=== PATIENT | female | born 1990 | race Caucasian/White ===

== ENCOUNTER 2024-02-13 19:21 | Emergency (ER) | payer MEDICAID, SELFPAY ==
--- NOTE | ~2024-02-13 | CT_ITS ---
EXAMINATION: CT ABDOMEN AND PELVIS WITHOUT CONTRAST CLINICAL INFORMATION: Left lower abdominal pain COMPARISON: None available. TECHNIQUE: Multidetector volumetric imaging was performed from the superior aspect of the liver through the pubic symphysis. Sagittal and coronal reformatted images were obtained on the technologist's workstation. This CT examination was performed using dose optimization techniques as appropriate, variously including the following: *Automated exposure control *Adjustment of mA and/or kV according to patient size (this includes techniques or standardized protocols for targeted exams where dose is matched to indication/reason for exam; i.e. extremities or head) *Use of iterative reconstruction technique DLP: 604 mGy-cm FINDINGS: LUNG BASES: The visualized lung bases are unremarkable. LIVER, GALLBLADDER, AND BILIARY TREE: The liver is normal in size, shape, and attenuation. No focal hepatic lesion or biliary ductal dilatation is present. The gallbladder is unremarkable with no evidence of radiopaque gallstones, gallbladder wall thickening, or obvious pericholecystic inflammatory changes. PANCREAS: Unremarkable. SPLEEN: Unremarkable. ADRENAL GLANDS: Unremarkable. KIDNEYS AND URETERS: The kidneys are normal in size, shape, and attenuation. No hydronephrosis, hydroureter, or calculi seen. No perinephric stranding. BLADDER: Unremarkable. GASTROINTESTINAL TRACT: The small and large bowel are unremarkable. The appendix is unremarkable. ABDOMINAL WALL: No significant hernia is appreciated. Tiny periumbilical hernia seen containing only fat. LYMPH NODES: No retroperitoneal pathology. VASCULAR: Unremarkable. PELVIC VISCERA: Normal anteverted uterus is present. There is a 3.6 cm benign water density left ovarian cyst present which needs no follow-up. OSSEOUS STRUCTURES: Mild biconvex thoracolumbar scoliosis with degenerative changes spine. CT/CT abdomen pelvis wo IV con IMPRESSION: A cause for the patient's left lower quadrant pain has not been found. Fleischner guidelines were followed. Electronically signed by: Gustavo Leon MD 02/14/2024 01:37 AM EDT
[2024-02-13 19:35] VITALS: BP 121/89; PULSE 99; RESP 18; TEMP 36.9; O2SAT 97; BMI 35.8
--- NOTE | 2024-02-13 19:35 | ED_ITS ---
HPI - General Adult General Chief complaint: Abdominal Pain Stated complaint: L side lower abd pain, painful urination Time Seen by Provider: 02/13/24 23:13 Source: patient Mode of arrival: ambulatory Limitations: no limitations History of Present Illness ED Provider: Dr. Golden HPI narrative: Patient with months of left lower abdominal pain. She has had infertility work up in the past and has had left lower pain since having a salpingogram. She denies fever Onset (ago): month(s) Severity: mild Related Data Previous Rx's ?Medication ?Instructions ?Recorded naproxen 500 mg tablet (Naprosyn) 500 mg PO BID #20 tabs 02/14/24 Allergies Allergy/AdvReac Type Severity Reaction Status Date / Time No Known Allergies Allergy Verified 02/13/24 19:37 Review of Systems 2 Review of Systems: Yes all other systems are reviewed and are negative Neurologic: Denies Sensory deficit (Neuro) COUNT INCLUDES THE [facility] Social History Social History Advance Directives: No Advance Directives Information Provided: Yes Do you have a plan to hurt others: No Plan Physical Exam ED Vital Signs: Vital Signs - 24 hr 02/13/24 19:35 Temperature 98.5 F Pulse Rate 99 Respiratory Rate 18 Blood Pressure 121/89 Pulse Oximetry 97 Oxygen Delivery Method Room Air BMI result Body Mass Index 35.8 Const General: healthy appearing Nutritional Appearance: average body habitus Orientation/consciousness: oriented to person and patient oriented x3 Limitations: no limitations HENMT Head: Yes normal to inspection Ears: external ears normal General nose exam: Normal external nose present Mouth: Normal oral and palatal mucosa present and oropharynx normal Throat: Yes posterior oropharynx normal Eyes General: appearance normal, both eyes and all related structures Neck Neck: Yes normal visual inspection Chest Chest palpation & inspection: normal inspection of the chest Resp Auscultation: clear to auscultation bilaterally Cardio Jugular venous distension: no JVD Rate: regular rate Rhythm: regular rhythm Heart sounds: S1 normal heart sound present and S2 normal heart sound present GI Inspection: Yes normal to inspection Palpation (GI): Soft to palpation, nontender and No hepatosplenomegaly present Auscultation: normal bowel sounds General: Yes no CVA tenderness Back/Spine/Pelvis Back: no CVA tenderness Skin General skin exam: no rashes or lesions noted Neuro General: oriented to person and patient oriented x3 Cranial nerves: Yes CN's II-XII intact bilaterally Motor exam (neuro): 5/5 motor strength present throughout Sensory Exam: No Sensory deficit (Neuro) Extrem General: Yes normal to inspection Psych Appearance: grossly normal Course Course Course Narrative: This is an RME done by JACQUIE Pappas: Additional HPI, ROS, PE not included below will be deferred to primary provider. 33 year old presenting with LLQ abdominal pain x a few months. She has followed with her OBGYN about this and she got a transvaginal/abdominal pelvic US. Plan - labs, urine Appearance: Alert.? Oriented X3.? No acute cardiopulmonary distress distress.? Head: Normocephalic, atraumatic, no step-offs or deformities Neck: Normal inspection.? Neck supple.? CVS: Pulses normal.? Respiratory: No respiratory distress.? Abdomen: Soft and nontender.? Skin: ? Normal skin color. Extremities: 5/5 strength to bilateral upper and lower extremities Neuro: Oriented X 3.? No motor deficit.? No sensory deficit. Reevaluation(s) Reevaluation #1: UA negative, labs normal, CT shows left ovarian cyst will treat with NSAIDs Time: 02:28 Medications Administered Discontinued Medications Generic Name Dose Route Start Last Admin Trade Name Freq PRN Reason Stop Dose Admin Acetaminophen 975 mg 02/13/24 23:23 02/13/24 23:42 Acetaminophen 325 Mg Tablet PO 02/13/24 23:24 975 mg ONCE ONE Administration Medical Decision Making Differential Diagnosis Differential Diagnoses: The differential diagnosis associated with the presentation includes (renal colic, UTI, ovarian cyst, diverticulitis were all considered) Admission/Observation Consideration of admission/observation: Escalation of care including admission/observation considered (upon arrival patient was considered for admission) Lab Data 02/13/24 19:47 02/13/24 19:47 Labs: Lab Results 02/13/24 02/13/24 Range/Units 19:47 23:45 WBC 8.8 (4.8-10.8) X10*3/uL RBC 4.66 (4.20-5.50) X10*6/uL Hgb 13.6 (12.0-16.0) g/dl Hct 40.1 (37.0-47.0) % MCV 86.1 (80.0-98.0) fL MCH 29.2 (27.0-33.0) pg MCHC 33.9 (31.0-35.0) g/dl RDW 12.7 (11.0-16.0) % Plt Count 263 (160-400) X10*3/uL MPV 8.2 L (9.4-12.3) fL Immature Gran % (Auto) 0.3 (0.0-0.4) % Neut % (Auto) 58.4 (45-73) % Lymph % (Auto) 33.2 (20-40) % Gilmer % (Auto) 6.5 (2-11) % Eos % (Auto) 1.4 (0-4) % Baso % (Auto) 0.2 (0-2) % Lymph # (Auto) 2.9 (1.2-4.9) X10*3/uL Gilmer # (Auto) 0.6 (0.1-1.2) X10*3/uL Eos # (Auto) 0.1 (0.0-0.4) X10*3/uL Baso # (Auto) 0.0 (0.0-0.2) X10*3/uL Abs Immat Gran (auto) 0.03 (0.00-0.03) X10*3/uL Absolute Neuts (auto) 5.1 (2.0-8.3) x10*3/uL Absolute Nucleated RBC 0.000 (0.0-0.012) X10*3/uL Nucleated RBC % (auto) 0.0 (0.0-0.2) /100WBC Sodium 141 (135-145) mmol/L Potassium 4.0 (3.3-5.1) mmol/L Chloride 109 H (96-108) mmol/L Carbon Dioxide 23 (22-29) mmol/L Anion Gap 13 (12-20) BUN 14 (9-16) mg/dL Creatinine 0.92 (0.5-1.4) mg/dL Estim Creat Clear Calc 81.5 Estimated GFR > 60 Random Glucose 97 (60-115) mg/dL Calcium 9.7 (8.4-10.2) mg/dL Magnesium 2.0 (1.6-2.6) mg/dL Total Bilirubin 0.4 (0.0-1.0) mg/dL AST 21 (5-31) U/L ALT 29 (0-31) U/L Alkaline Phosphatase 67 (39-117) U/L Total Protein 7.5 (6.5-8.0) g/dL Albumin 4.3 (3.5-5.0) g/dL Urine Color Yellow Urine Appearance Clear Urine pH 5.5 (5.0-9.0) Ur Specific Banner >= 1.030 H (1.005-1.025) Urine Protein Negative (Neg-Trace) mg/dL Urine Glucose (UA) Negative (Negative) mg/dL Urine Ketones Negative (Negative) mg/dL Urine Blood Negative (Negative) Urine Nitrite Negative (Negative) Ur Leukocyte Esterase Negative (Negative) Urine Test NEGATIVE (NEGATIVE) Independent Interpretation I performed an independent interpretation of an: CT Scan (abd/pelvis: left 3.6 cm ovarian cyst) Radiology Impression Discussion of test interpretation with radiology: I have reviewed the radiologist's reading. Prescription Management I considered prescription management with: Antibiotic (no evidence of UTI) Discharge Plan Discharge Clinical Impression: Ovarian cyst Patient Disposition: Home, Self-Care Instructions: Ovarian Cyst (ED) Prescriptions: New naproxen [Naprosyn] 500 mg tablet 500 mg PO BID Qty: 20 0RF Referrals: Physician,Unknown J [Primary Care Provider] - 3 days Print Language: Chilean
[2024-02-13 19:51] LABS: MANUAL DIFF FLAG NO
[2024-02-13 19:53] LABS: Basophils Percent Auto 0.2 % (0-2); Eosinophils Absolute Auto 0.1 X10*3/uL (0.0-0.4); Eosinophils Percent Auto 1.4 % (0-4); Hematocrit 40.1 % (37.0-47.0); Hemoglobin 13.6 g/dl (12.0-16.0); Imm Gran Abs Auto 0.03 X10*3/uL (0.00-0.03); Imm Gran Pct Auto 0.3 % (0.0-0.4); Lymphocytes Absolute Auto 2.9 X10*3/uL (1.2-4.9); Lymphocytes Percent Auto 33.2 % (20-40); Mean Corpuscular HGB Conc 33.9 g/dl (31.0-35.0); Mean Corpuscular Hemoglobin 29.2 pg (27.0-33.0); Mean Corpuscular Volume 86.1 fL (80.0-98.0); Mean Platelet Volume 8.2 fL (9.4-12.3); Monocytes Absolute Auto 0.6 X10*3/uL (0.1-1.2); Monocytes Percent Auto 6.5 % (2-11); Neutrophils Absolute Auto 5.1 x10*3/uL (2.0-8.3); Neutrophils Percent Auto 58.4 % (45-73); Platelet Count 263 X10*3/uL (160-400); Red Blood Count 4.66 X10*6/uL (4.20-5.50); Red Cell Distribution Width 12.7 % (11.0-16.0); White Blood Count 8.8 X10*3/uL (4.8-10.8)
[2024-02-13 20:06] LABS: Alanine Aminotransferase 29 U/L (0-31); Albumin Level 4.3 g/dL (3.5-5.0); Alkaline Phosphatase 67 U/L (39-117); Anion Gap 13 (12-20); Aspartate Amino Transferase 21 U/L (5-31); Bilirubin Total 0.4 mg/dL (0.0-1.0); Blood Urea Nitrogen 14 mg/dL (9-16); Calcium 9.7 mg/dL (8.4-10.2); Carbon Dioxide 23 mmol/L (22-29); Chloride 109 mmol/L (96-108); Creatinine Clr Calc Pharmacy 81.5; Estimated Glomerular Filt Rate > 60; Glucose Random 97 mg/dL (60-115); Sodium 141 mmol/L (135-145); Total Protein 7.5 g/dL (6.5-8.0)
--- OUTSIDE RECORDS SUMMARY | 2024-02-13 23:18 | XMS_ITS | Continuity of Care Document ---
Author Organization [facility] Address [address] [place] [address]- Care Team Providers Care Company Driver Name Role Phone Yousif Combs MD Primary Care Physician Encounter [facility] [place] Date(s): 09/28/20 - 11/03/[address] [address] Attending Physician: Yousif Combs MD Admitting Physician: Yousif Combs MD Allergies, Adverse Reactions, Alerts Substance Reaction Severity Status Cats Active Medications Diflucan 150 mg oral tablet 1 tablet = 150 mg, By Mouth, Every week, One pill once per week for 6 months, # 4 tablet, 5 Refills, Acute 01/16/21 8:00:00 EDT, 08/06/20 16:42:00 EST, Tablet, [facility], Partial fill upon patient request if the prescription is f... Start Date: 08/06/20 Stop Date: 01/16/21 Status: Ordered fluconazole 150 mg oral tablet 1 tablet = 150 mg, By Mouth, Once, Repeat dose if still having symptoms in 72 hours, # 2 tablet, 0 Refills, Soft Stop, 07/30/20 13:50:00 EST, Tablet, [facility], Partial fill upon patient request if the prescription is for a sched... Start Date: 07/30/20 Status: Ordered Probiotic Formula By Mouth, Daily, 0 Refills, Maintenance, 08/16/20 9:23:00 EST, Partial fill upon patient request ifthe prescription is for a schedule II opioid drug. Start Date: 08/16/20 Status: Ordered Vitamin D 40807 iu oral capsule 50,000 International_Units, By Mouth, Daily, Refills 0, Maintenance, 08/16/20 9:23:00 EST, Partial fill upon patient request if the prescription is for a schedule II opioid drug. Start Date: 08/16/20 Status: Ordered Problem List Condition Effective Dates Status Health Status Inform ant Eczema(Confirmed) 1 Active Mixed incontinence(Confirmed) Active Breast pain, right(Confirmed) Active 1right nipple Social History Social History Type Response Smoking Status Never (less than 100 in lifetime) entered on: 07/30/20 Sex
--- OUTSIDE RECORDS SUMMARY | 2024-02-13 23:18 | XMS_ITS | Continuity of Care Document ---
Author Organization [facility] Address [address] [place] [address]- Care Team Providers Care Cereal Maker Name Role Phone Garret FORD, Yousif Salinas Primary Care Physician [phone] Encounter [facility] [place] Date(s): 09/15/21 - 10/15/[address] [address]- Allergies, Adverse Reactions, Alerts Substance Reaction Severity Status Cats Active Medications fluconazole 150 mg oral tablet 1 tablet = 150 mg, By Mouth, Once, epeat dose if still having symptoms in 72 hours, # 2 tablet, 0 Refills, Soft Stop, 10/04/21 16:27:00 EDT, Tablet, [facility], Partial fill upon patient request if the prescription is for a schedule II opio... Start Date: 10/04/21 Status: Ordered hydrocortisone 1% topical cream 1 application, Topically, 2 times a day, Use 1-2 times per day for 3-4 weeks until follow up appointment, # 14 Gm, 1 Refills, Maintenance, 10/04/21 16:26:00 EDT, Cream, [facility], Partialfill upon patient request if the prescription is fo... Start Date: 10/04/21 Status: Ordered Valtrex 500 mg oral tablet 500 mg, 1, tablet, By Mouth, Daily, for 90 days, # 90 tablet, Refills 1, Tot. Refills 1, Acute 01/03/22 14:24:00 EDT, 07/07/21 14:24:00 EST, Route to Pharmacy Electronically, [facility], Partial fill upon patient request if the pr... Start Date: 07/07/21 Stop Date: 01/03/22 Status: Ordered Problem List Condition Effective Dates Status Health Status Inform ant Eczema(Confirmed) 1 Active Mixed incontinence(Confirmed) Active Low back pain(Confirmed) Active Obese class II(Confirmed) Active Breast pain, right(Confirmed) Active 1right nipple Social History Social History Type Response Smoking Status Never (less than 100 in lifetime) entered on: 07/30/20 Sex
--- OUTSIDE RECORDS SUMMARY | 2024-02-13 23:18 | XMS_ITS | Continuity of Care Document ---
Author Organization [facility] Address [address] [place] [address]- Care Team Providers Care Manager Clinic Name Role Phone Garret FORD, Yousif Salinas Primary Care Physician [phone] Encounter [facility] [place] Date(s): 08/08/21 - 10/12/[address] [address]- Attending Physician: Not on Staff, Attending MD Allergies, Adverse Reactions, Alerts Substance Reaction Severity Status Cats Active Medications fluconazole 150 mg oral tablet 1 tablet = 150 mg, By Mouth, Once, epeat dose if still having symptoms in 72 hours, # 2 tablet, 0 Refills, Soft Stop, 10/04/21 16:27:00 EDT, Tablet, [facility], Partial fill upon patient request if the prescription is for a schedule II opio... Start Date: 10/04/21 Status: Ordered hydrocortisone 1% topical cream 1 application, Topically, 2 times a day, Use 1-2 times per day for 3-4 weeks until follow up appointment, # 14 Gm, 1 Refills, Maintenance, 10/04/21 16:26:00 EDT, Cream, [facility], Partialfill upon patient request if the prescription is fo... Start Date: 10/04/21 Status: Ordered Valtrex 500 mg oral tablet 500 mg, 1, tablet, By Mouth, Daily, for 90 days, # 90 tablet, Refills 1, Tot. Refills 1, Acute 01/03/22 14:24:00 EDT, 07/07/21 14:24:00 EST, Route to Pharmacy Electronically, [facility], Partial fill upon patient request if [...]
--- OUTSIDE RECORDS SUMMARY | 2024-02-13 23:18 | XMS_ITS | Continuity of Care Document ---
Author Organization [facility] Address [address] [place] [address]- Care Team Providers Care Housekeeping Department Worker Name Role Phone Garret FORD, Yousif Salinas Primary Care Physician Encounter [facility] [place] Date(s): 07/05/21 - 08/04/[address] [address]- Allergies, Adverse Reactions, Alerts Substance Reaction Severity Status Cats Active Medications Diflucan 150 mg oral tablet See Instructions, Take 1 tablet today, then if symptoms persist take another tablet in 72 hours after first was taken., # 2 tablet, 0 Refills, Soft Stop, 07/08/21 15:21:00 EST, Tablet, [facility], Partial fill upon patient request... Start Date: 07/08/21 Status: Ordered fluconazole 150 mg oral tablet 1 tablet = 150 mg, By Mouth, Once, Repeat dose if still having symptoms in 72 hours, # 2 tablet, 0 Refills, Soft Stop, 07/30/20 13:50:00 EST, Tablet, [facility], Partial fill upon patient request if the prescription is for a sched... Start Date: 07/30/20 Status: Ordered hydrocortisone 1% topical cream 1 application, Topically, 2 times a day, Use 1-2 times per day for 3-4 weeks until follow up appointment, # 14 Gm, 1 Refills, Maintenance, 07/07/21 14:28:00 EST, Cream, [facility], Partial fill upon patient request if the prescrip... Start Date: 07/07/21 Status: Ordered Probiotic Formula By Mouth, Daily, 0 Refills, Maintenance, 08/16/20 9:23:00 EST, Partial fill upon patient request ifthe prescription is for a schedule II opioid drug. Start Date: 08/16/20 Status: Ordered Valtrex 500 mg oral tablet 500 mg, 1, tablet, By Mouth, Daily, for 90 days, # 90 tablet, Refills 1, Tot. Refills 1, Acute 01/03/22 14:24:00 EDT, 07/07/21 14:24:00 EST, Route to Pharmacy Electronically, [facility], Partial fill upon patient request if the pr... Start Date: 07/07/21 Stop Date: 01/03/22 Status: Ordered Vitamin D 07561 iu oral capsule 50,000 International_Units, By Mouth, Daily, Refills 0, Maintenance, 08/16/20 9:23:00 EST, Partial fill upon patient request if the prescription is for a schedule II opioid drug. Start Date: 08/16/20 Status: Ordered Problem List Condition Effective Dates Status Health Status Inform ant Eczema(Confirmed) 1 Active Mixed incontinence(Confirmed) Active Obese class II(Confirmed) Active Breast pain, right(Confirmed) Active 1right nipple Social History Social History Type Response Smoking Status Never (less than 100 in lifetime) entered on: 07/30/20 Sex
--- OUTSIDE RECORDS SUMMARY | 2024-02-13 23:18 | XMS_ITS | Continuity of Care Document ---
Author Organization [facility] Address [address] [place] [address]- Care Team Providers Care Volleyball Assembler Name Role Phone Garret FORD, Yousif Salinas Primary Care Physician [phone] Encounter [facility] [place] Date(s): 10/11/21 - 11/10/[address] [address]- Allergies, Adverse Reactions, Alerts Substance Reaction Severity Status Cats Active Medications fluconazole 150 mg oral tablet 1 tablet = 150 mg, By Mouth, Once, epeat dose if still having symptoms in 72 hours, # 2 tablet, 0 Refills, Soft Stop, 10/04/21 16:27:00 EDT, Tablet, [facility], Partial fill upon patient request if the prescription is for a schedule II opio... Start Date: 10/04/21 Status: Ordered hydrocortisone 1% topical cream 1 application, Topically, 2 times a day, Use 1-2 times per day for 3-4 weeks until follow up appointment, # 14 Gm, 1 Refills, Maintenance, 10/04/21 16:26:00 EDT, Cream, [facility], Partialfill upon patient request if the prescription is fo... Start Date: 10/04/21 Status: Ordered Valtrex 500 mg oral tablet 500 mg, 1, tablet, By Mouth, Daily, for 90 days, # 90 tablet, Refills 1, Tot. Refills 1, Acute 01/03/22 14:24:00 EDT, 07/07/21 14:24:00 EST, Route to Pharmacy Electronically, [facility], Partial fill upon patient [...]
--- OUTSIDE RECORDS SUMMARY | 2024-02-13 23:18 | XMS_ITS | Continuity of Care Document ---
Author Organization [facility] Address [address] [place] [address]- Care Team Providers Care Director Of Outside Sales Name Role Phone Not on Staff, PCP Primary Care Physician Unavail able Encounter [facility] [place] Date(s): 05/08/23 - 06/16/23 [facility] [address] [place] [address]- Attending Physician: Maddy Gale MD Referring Physician: Regina Frost MD Allergies, Adverse Reactions, Alerts No Known Medication Allergies Substance Reaction Severity Status Cats Active Medications diclofenac 3% topical gel 1 application, Topically, 2 times a day, # 50 Gm, 0 Refills, Maintenance, 02/22/22 11:25:00 EDT, Gel, [facility], Partial fill upon patient request if the prescription is for a schedule II opioid drug., 1 application Topically 2 t... Start Date: 02/22/22 Stop Date: 03/01/22 Status: Ordered doxycycline hyclate 100 mg oral tablet 1 tablet = 100 mg, By Mouth, 2 times a day, START TWO DAYS BEFORE PROCEDURE ON05/15. TAKE WITH FOOD, # 10 tablet, 0 Refills, Maintenance, 05/09/23 15:08:00 EST, [facility], Partial fill upon patient request if the prescription is for a rylan... Start Date: 05/09/23 Status: Ordered Valtrex 500 mg oral tablet 500 mg, 1, tablet, By Mouth, 2 times a day, for 3 days, # 6 tablet, Refills 3, Tot. Refills 3, Acute 06/26/23 14:24:00 EST, 06/14/23 14:24:00 EST, Route to Pharmacy Electronically, [facility], Partial fill upon patient request if... Start Date: 06/14/23 Stop Date: 06/26/23 Status: Ordered Problem List Condition Confirmation Course Effective Dates Status Health [facility] Inform[facility] Asthma Confirmed Active Chronic constipation Confirmed Active Eczema 1 Confirmed Active Mixed incontinence Confirmed Active Low back pain Confirmed Active Obese class II Confirmed Active Sleep apnea Confirmed Active 1right nipple Social History Social History Type Response Smoking Status Never (less than 100 in lifetime) entered on: 07/30/20 Sex Patient Care team information Care Team Personnel Name: Adria Garcia RN, Mary Position: [facility] RN Member Role: Primary Care Nurse Name: Junie Beck RN Position: [facility] ED RN W/OE and Tasks Member Role: Primary Care Nurse Name: Not on Staff, PCP Position: [facility] Physician (General Medicine) Member Role: PCP Care Team Related Persons Name: DEE MOBLEY Address: [address] [address] Name: MYRA TRUONG Address: home [address] [place] [address] Name: JOSH TRUONG Address: home [address] [place] [address]
--- OUTSIDE RECORDS SUMMARY | 2024-02-13 23:18 | XMS_ITS | Continuity of Care Document ---
Author Organization [facility] Address [address] [place] [address]- Care Team Providers Care Assignment Manager Name Role Phone Garret FORD, Yousif Salinas Primary Care Physician Encounter [facility] [place] Date(s): 03/29/22 - 05/18/[address] [address]- Attending Physician: Milady Diallo CNM Admitting Physician: Milady Diallo CNM Allergies, Adverse Reactions, Alerts Substance Reaction Severity Status Cats Active Medications diclofenac 3% topical gel 1 application, Topically, 2 times a day, # 50 Gm, 0 Refills, Maintenance, 02/22/22 11:25:00 EDT, Gel, [facility], Partial fill upon patient request if the prescription is for a schedule II opioid drug., 1 application Topically 2 t... Start Date: 02/22/22 Stop Date: 03/01/22 Status: Ordered Diflucan 150 mg oral tablet 1 tablet = 150 mg, By Mouth, Once, # 1 tablet, 0 Refills, Soft Stop, 04/30/22 12:37:00 EST, Tablet,[facility], Partial fill upon patient request if the prescription is for a schedule II opioid drug., 153, cm, 04/27/22 18:27:00 EST, Height,... Start Date: 04/30/22 Status: Ordered hydrocortisone 1% topical cream 1 application, Topically, 2 times a day, Use 1-2 times per day for 3-4 weeks until follow up appointment, # 14 Gm, 1 Refills, Maintenance, 10/04/21 16:26:00 EDT, Cream, [facility], Partialfill upon patient request if the prescription is fo... Start Date: 10/04/21 Status: Ordered ibuprofen 600 mg oral tablet 600 mg, 1, tablet, By Mouth, Every 6 hours, # 50 tablet, Refills 0, Tot. Refills 0, Maintenance, 04/27/22 22:55:00 EST, Route to Pharmacy Electronically, [facility] #[id number], Partial fill upon patientrequest if the prescription is for a schedule II op... Start Date: 04/27/22 Status: Ordered lidocaine 5% topical film 1 patch, Topically, Daily, PRN Pain , Mild, remove after 12 hours, # 13 each, 0 Refills, Maintenance, 04/27/22 22:48:00 EST, Film, [id number], Partial fill upon patient request if the prescription is for a schedule II opioid drug., 1 patch... Start Date: 04/27/22 Status: Ordered Tylenol 325 mg oral capsule 3 capsule = 975 mg, By Mouth, Every 6 hours, PRN as needed for fever, # 60 capsule, 0 Refills, Maintenance, 04/27/22 22:55:00 EST, Capsule, [facility] #[id number], Partial fill upon patient request if the prescription is for a schedule II opioid drug., 15... Start Date: 04/27/22 Status: Ordered Valtrex 500 mg oral tablet 500 mg, 1, tablet, By Mouth, Daily, Refills 0, Maintenance, 04/27/22 18:32:00 EST, Partial fill upon patient request if the prescription is for a schedule II opioid drug. Start Date: 04/27/22 Status: Ordered Problem List Condition Confirmation Course Effective Dates Status Health [facility] Inform[facility] Asthma Confirmed Active Eczema 1 Confirmed Active Mixed incontinence Confirmed Active Low back pain Confirmed Active Obese class I Confirmed Active Breast pain, right Confirmed Active 1right nipple Social History Social History Type Response Smoking Status Never (less than 100 in lifetime) entered on: 07/30/20 Sex Patient Care team information Care Team Personnel Name: Adria Garcia RN, Mary Position: S RN Member Role: Primary Care Nurse Name: Junie Beck RN Position: [facility] ED RN W/OE and Tasks Member Role: Primary Care Nurse Name: Yousif Combs MD Position: [facility] Physician (General Medicine) Member Role: PCP Address: Address: [address] [place] [address], [address] [facility] [place] [address]- Care Team Related Persons Name: DEE MOBLEY Address: [address] [address] Name: MYRA TRUONG Address: home [address] [place] [address] Name: JOSH TRUONG Address: [place] [address]
--- OUTSIDE RECORDS SUMMARY | 2024-02-13 23:18 | XMS_ITS | Continuity of Care Document ---
Author Organization [facility] Address [address] [place] [address]- Care Team Providers Care Word Processing Operator Name Role Phone Yousif Combs MD Primary Care Physician [phone] [place] [facility] [place] [facility] [id number] Date(s): 09/10/20 - 10/10/[address] [address] Attending Physician: Admvishnu, Willy Admitting Physician: Admtr, Ar8 Referring Physician: Admtr, Ar8 Allergies, Adverse Reactions, Alerts Substance Reaction Severity Status Cats Active Medications Diflucan 150 mg oral tablet 1 tablet = 150 mg, By Mouth, Every week, One pill once per week for 6 months, # 4 tablet, 5 Refills, Acute 01/16/21 8:00:00 EDT, 08/06/20 16:42:00 EST, Tablet, [facility], Partial fill upon patient request if the prescription is f... Start Date: 08/06/20 Stop Date: 01/16/21 Status: Ordered fluconazole 150 mg oral tablet 1 tablet = 150 mg, By Mouth, Once, Repeat dose if still having symptoms in 72 hours, # 2 tablet, 0 Refills, Soft Stop, 07/30/20 13:50:00 EST, Tablet, [facility], Partial fill upon patient request if the prescription is for a sched... Start Date: 07/30/20 Status: Ordered Probiotic Formula By Mouth, Daily, 0 Refills, Maintenance, 08/16/20 9:23:00 EST, Partial fill upon patient request ifthe prescription is for a schedule II opioid drug. Start Date: 08/16/20 Status: Ordered Vitamin D 50527 iu oral capsule 50,000 International_Units, By Mouth, [...]
--- OUTSIDE RECORDS SUMMARY | 2024-02-13 23:18 | XMS_ITS | Continuity of Care Document ---
Author Organization [facility] Address [address] [place] [address]- Care Team Providers Care Field Ring Assembler Name Role Phone Garret FORD, Yousif Salinas Primary Care Physician Encounter [facility] [place] Date(s): 07/07/21 - 08/06/[address] [address]- Allergies, Adverse Reactions, Alerts Substance Reaction Severity Status Cats Active Medications Diflucan 150 mg oral tablet See Instructions, Take 1 tablet today, then if symptoms persist take another tablet in 72 hours after first was taken., # 2 tablet, 0 Refills, Soft Stop, 07/08/21 15:21:00 EST, Tablet, [facility], Partial fill upon patient request... Start Date: 07/08/21 Status: Ordered fluconazole 150 mg oral tablet 1 tablet = 150 mg, By Mouth, Once, Repeat dose if still having symptoms in 72 hours, # 2 tablet, 0 Refills, Soft Stop, 07/30/20 13:50:00 EST, Tablet, [facility], Partial fill upon patient request if the prescription is for a sched... Start Date: 07/30/20 Status: Ordered hydrocortisone 1% topical cream 1 application, Topically, 2 times a day, Use 1-2 times per day for 3-4 weeks until follow up appointment, # 14 Gm, 1 Refills, Maintenance, 07/07/21 14:28:00 EST, Cream, [facility], Partial fill upon patient [...] 07/07/21 14:24:00 EST, Route to Pharmacy Electronically, [facility], Partial fill upon patient request if the pr... Start Date: 07/07/21 Stop Date: 01/03/22 Status: Ordered Vitamin D 77541 iu oral capsule 50,000 International_Units, By Mouth, [...]
--- OUTSIDE RECORDS SUMMARY | 2024-02-13 23:18 | XMS_ITS | Continuity of Care Document ---
Author Organization [facility] Address [address] [place] [address]- Care Team Providers Care Assembler Small Products Name Role Phone Garret FORD, Yousif Salinas Primary Care Physician [place] [facility] [place] Date(s): 09/12/21 - 10/20/[address] [address]- Attending Physician: Not on Staff, Attending MD Allergies, Adverse Reactions, Alerts Substance Reaction Severity Status Cats Active Medications fluconazole 150 mg oral tablet 1 tablet = 150 mg, By Mouth, Once, epeat dose if still having symptoms in 72 hours, # 2 tablet, 0 Refills, Soft Stop, 10/04/21 16:27:00 EDT, Tablet, [facility], Partial fill upon patient request if the prescription is for a schedule II opio... Start Date: 10/04/21 Status: Ordered hydrocortisone 1% topical cream 1 application, Topically, 2 times a day, Use 1-2 times per day for 3-4 weeks until follow up appointment, # 14 Gm, 1 Refills, Maintenance, 10/04/21 16:26:00 EDT, Cream, [facility], Partialfill upon patient request if the prescription is fo... Start Date: 10/04/21 Status: Ordered Valtrex 500 mg oral tablet 500 mg, 1, tablet, By Mouth, Daily, for 90 days, # 90 tablet, Refills 1, Tot. Refills 1, Acute 01/03/22 14:24:00 EDT, 07/07/21 14:24:00 EST, Route to Pharmacy Electronically, [facility], Partial fill upon patient [...]
--- OUTSIDE RECORDS SUMMARY | 2024-02-13 23:18 | XMS_ITS | Continuity of Care Document ---
Author Organization [facility] Address [address] [place] [address]- Care Team Providers Care Administrative Assistant Receptionist Name Role Phone Garret FORD, Yousif Salinas Primary Care Physician [phone] Encounter [facility] Date(s): 06/22/22 - 07/22/22 [facility] [address] [place] [address] Allergies, Adverse Reactions, Alerts Substance Reaction Severity Status Cats Active Medications diclofenac 3% topical gel 1 application, Topically, 2 times a day, # 50 Gm, 0 Refills, Maintenance, 02/22/22 11:25:00 EDT, Gel, [facility], Partial fill upon patient request if the prescription is for a schedule II opioid drug., 1 application Topically 2 t... Start Date: 02/22/22 Stop Date: 03/01/22 Status: Ordered Diflucan 150 mg oral tablet 1 tablet = 150 mg, By Mouth, Once, # 1 tablet, 0 Refills, Soft Stop, 04/30/22 12:37:00 EST, [facility], Partial fill upon patient request if the prescription is for a schedule II opioid drug., 153, cm, 04/27/22 18:27:00 EST, Height,... Start Date: 04/30/22 Status: Ordered hydrocortisone 1% topical cream 1 application, Topically, 2 times a day, Use 1-2 times per day for 3-4 weeks until follow up appointment, # 14 Gm, 1 Refills, Maintenance, 10/04/21 16:26:00 EDT, Cream, [facility], Partialfill upon patient request if the prescription is fo... Start Date: 10/04/21 Status: Ordered ibuprofen 600 mg oral tablet 600 mg, 1, tablet, By Mouth, Every 6 hours, # 50 tablet, Refills 0, Tot. Refills 0, Maintenance, 04/27/22 22:55:00 EST, [id number] Partial fill upon patientrequest if the prescription is for a schedule II op... Start Date: 04/27/22 Status: Ordered lidocaine 5% topical film 1 patch, Topically, Daily, PRN Pain , Mild, remove after 12 hours, # 13 each, 0 Refills, Maintenance, 04/27/22 22:48:00 EST, Film, [facility], Partial fill upon patient request if the prescription is for a schedule II opioid drug., 1 patch... Start Date: 04/27/22 Status: Ordered Tylenol 325 mg oral capsule 3 capsule = 975 mg, By Mouth, Every 6 hours, PRN as needed for fever, # 60 capsule, 0 Refills, Maintenance, 04/27/22 22:55:00 EST, Capsule, [id number] Partial fill upon patient request if [...] Care team information Care Team Personnel Name: Mary Pastor RN Position: [facility] RN Member Role: Primary Care Nurse Name: Junie Beck RN Position: [facility] ED RN W/OE and Tasks Member Role: Primary Care Nurse Name: Yousif Combs MD Position: [facility] Physician (General Medicine) Member Role: PCP Address: Address: [address] [place] [address], [address] [facility] [place], [place] [address] Care Team Related Persons Name: DEE MOBLEY Address: home [address] [place] [address] Name: MYRA TRUONG Address: [address] [place] [address] Name: JOSH TRUONG Address: home [address] [place] [address]
--- OUTSIDE RECORDS SUMMARY | 2024-02-13 23:18 | XMS_ITS | Continuity of Care Document ---
Author Organization [facility] Address [address] [place] [address]- Care Team Providers Care Ribbon Lap Machine Tender Name Role Phone Not on Staff, PCP Primary Care Physician Unavail able Encounter [facility] Date(s): 06/05/23 - 07/05/[address] [address]- Allergies, Adverse Reactions, Alerts No Known Medication Allergies Substance Reaction Severity Status Cats Active Medications diclofenac 3% topical gel 1 application, Topically, 2 times a day, # 50 Gm, 0 Refills, Maintenance, 02/22/22 11:25:00 EDT[facility] fill upon patient request if the prescription is for a schedule II opioid drug., 1 application Topically 2 t... Start Date: 02/22/22 Stop Date: 03/01/22 Status: Ordered doxycycline hyclate 100 mg oral tablet 1 tablet = 100 mg, By Mouth, 2 times a day, START TWO DAYS BEFORE PROCEDURE . TAKE WITH FOOD, # 10 tablet, 0 Refills, Maintenance, [facility]/09/23 [facility] Partial fill upon patient request if the prescription is for a rylan... Start Date: 05/09/23 Status: Ordered Problem List Condition Confirmation Course [...] information Care Team Personnel Name: Adria Garcia RNMary Position: [facility] RN Member Role: Primary Care Nurse Name: Kiran HERMAN, Junie Position: [facility] ED RN W/OE and Tasks Member Role: Primary Care Nurse Name: Not on Staff, PCP Position: [facility] Physician (General Medicine) Member Role: PCP Care Team Related Persons Name: AKASHPieroDEE Address: [address] [address] Name: MYRA TRUONG Address: home [address] [place] [address] Name: JOSH TRUONG Address: [place] [id number]
--- OUTSIDE RECORDS SUMMARY | 2024-02-13 23:18 | XMS_ITS | Continuity of Care Document ---
Author Organization [facility] Address [address] [place] [address]- Care Team Providers Care Concrete Pile Driver Operator Name Role Phone Yousif Combs MD Primary Care Physician [phone] Encounter [facility] [place] [place] [id number] Date(s): 09/21/20 - 10/27/[address] [address] Attending Physician: Yousif Combs MD Admitting Physician: Yousif Combs MD Allergies, Adverse Reactions, Alerts Substance Reaction Severity Status Cats Active Medications Diflucan 150 mg oral tablet 1 tablet = 150 mg, By Mouth, Every week, One pill once per week for 6 months, # 4 tablet, 5 Refills, Acute 01/16/21 8:00:00 EDT, 08/06/20 16:42:00 EST, Tablet, [facility], Partial fill upon patient request if the prescription is f... Start Date: 08/06/20 Stop Date: 01/16/21 Status: Ordered fluconazole 150 mg oral tablet 1 tablet = 150 mg, By Mouth, Once, Repeat dose if still having symptoms in 72 hours, # 2 tablet, 0 Refills, Soft Stop, 07/30/20 13:50:00 EST, Tablet, [facility], Partial fill upon patient request if the prescription is for a sched... Start Date: 07/30/20 Status: Ordered Probiotic Formula By Mouth, Daily, 0 Refills, Maintenance, 08/16/20 9:23:00 EST, Partial fill upon patient request ifthe prescription is for a schedule II opioid drug. Start Date: 08/16/20 Status: Ordered Vitamin D 92191 iu oral capsule 50,000 International_Units, By Mouth, [...]
--- OUTSIDE RECORDS SUMMARY | 2024-02-13 23:18 | XMS_ITS | Continuity of Care Document ---
Author Organization [facility] Address [address] [place] [address]- Care Team Providers Care Glove Tagger Name Role Phone Garret FORD, Yousif Salinas Primary Care Physician [place] [facility] [place] Date(s): 07/25/21 - 08/24/[address] [address]- Allergies, Adverse Reactions, Alerts Substance Reaction Severity Status Cats Active Medications Diflucan 150 mg oral tablet See Instructions, Take 1 tablet today, then if symptoms persist take another tablet in 72 hours after first was taken., # 2 tablet, 0 Refills, Soft Stop, 07/08/21 15:21:00 EST, Tablet, [facility], Partial fill upon patient request... Start Date: 07/08/21 Status: Ordered fluconazole 150 mg oral tablet 1 tablet = 150 mg, By Mouth, Once, Repeat dose if still having symptoms in 72 hours, # 2 tablet, 0 Refills, Soft Stop, 07/30/20 13:50:00 EST, Tablet, [facility], Partial fill upon patient request if the prescription is for a sched... Start Date: 07/30/20 Status: Ordered hydrocortisone 1% topical cream 1 application, Topically, 2 times a day, Use 1-2 times per day for 3-4 weeks until follow up appointment, # 14 Gm, 1 Refills, Maintenance, 07/07/21 14:28:00 EST, Cream, [facility], Partial fill upon patient [...] 07/07/21 14:24:00 EST, Route to Pharmacy Electronically, [facility], Partial fill upon patient request if the pr... Start Date: 07/07/21 Stop Date: 01/03/22 Status: Ordered Vitamin D 91676 iu oral capsule 50,000 International_Units, By Mouth, [...]
--- OUTSIDE RECORDS SUMMARY | 2024-02-13 23:19 | XMS_ITS | Continuity of Care Document ---
Author Organization [facility] Address [address] [place] [address]- Care Team Providers Care Edge Glue Machine Tender Name Role Phone Yousif Combs MD Primary Care Physician [place] [facility] [place] 10/27/[place] - 12/02/[address] [address] Attending Physician: Yousif Combs MD Admitting Physician: Yousif Combs MD Allergies, Adverse Reactions, Alerts Substance Reaction Severity Status Cats Active Medications Diflucan 150 mg oral tablet 1 tablet = 150 mg, By Mouth, Every week, One pill once per week for 6 months, # 4 tablet, 5 Refills, Acute 01/16/21 8:00:00 EDT, 08/06/20 16:42:00 EST, Tablet, [facility], Partial fill upon patient request if the prescription is f... Start Date: 08/06/20 Stop Date: 01/16/21 Status: Ordered fluconazole 150 mg oral tablet 1 tablet = 150 mg, By Mouth, Once, Repeat dose if still having symptoms in 72 hours, # 2 tablet, 0 Refills, Soft Stop, 07/30/20 13:50:00 EST, Tablet, [facility], Partial fill upon patient request if the prescription is for a sched... Start Date: 07/30/20 Status: Ordered Probiotic Formula By Mouth, Daily, 0 Refills, Maintenance, 08/16/20 9:23:00 EST, Partial fill upon patient request ifthe prescription is for a schedule II opioid drug. Start Date: 08/16/20 Status: Ordered Vitamin D 03643 iu oral capsule 50,000 International_Units, By Mouth, [...]
--- OUTSIDE RECORDS SUMMARY | 2024-02-13 23:19 | XMS_ITS | Continuity of Care Document ---
Author Organization [facility] Address [address] [place] [address]- Care Team Providers Care Underwriter Solicitation Director Name Role Phone Not on Staff, PCP Primary Care Physician Unavail able Encounter [facility] [place] [place] Date(s): 10/18/23 - 11/21/[address] [address]- Attending Physician: Not on Staff, Attending MD Allergies, Adverse Reactions, Alerts No Known Medication Allergies Substance Reaction Severity Status Cats Active Medications doxycycline hyclate 100 mg oral capsule 1 capsule = 100 mg, By Mouth, 2 times a day, Please start taking twice daily 2 days prior to scheduled HSG procedure, and continue for total 5 days. May take with food to minimize abdominal discomfort. Avoid sun exposure., # 10 capsule, 0 Refills, Ma... Start Date: 09/27/23 Stop Date: 10/02/23 Status: Ordered ibuprofen 800 mg oral tablet 800 mg, 1, tablet, By Mouth, Every 8 hours, # 40 tablet, Refills 0, Tot. Refills 0, Maintenance, 10/03/23 3:01:00 EDT, Route to Pharmacy Electronically, [facility], Partial fill upon patient request if the prescription is for a sc... Start Date: 10/03/23 Status: Ordered Tylenol 325 mg oral tablet 975 mg, 3, tablet, By Mouth, Every 8 hours, PRN, # 30 tablet, Refills 0, Tot. Refills 0, Maintenance, for pain, 10/03/23 3:01:00 EDT, Route to Pharmacy Electronically, [facility], Partial fill upon patient request if the prescript... Start Date: 10/03/23 Status: Ordered Problem List Condition Confirmation Course [...] Team Personnel Name: Mary Pastor RN Position: S RN Member Role: Primary Care Nurse Name: Junie Beck RN Position: [facility] RN Member Role: Primary Care Nurse Name: Not on Staff, PCP Position: [facility] Physician (General Medicine) Member Role: PCP Care Team Related Persons Name: DEE MOBLEY Address: home [address] [place] [address] Name: MYRA TRUONG Address: [address] [place] [address] Name: JOSH TRUONG Address: [place] [address] [place] [address]
--- OUTSIDE RECORDS SUMMARY | 2024-02-13 23:19 | XMS_ITS | Continuity of Care Document ---
Author Organization [facility] Address [address] [place] [address]- Care Team Providers Care Tanning Drum Operator Name Role Phone Not on Staff, PCP Primary Care Physician Unavail able Encounter [facility] [place] Date(s): 02/27/23 - 04/13/23 [facility] [address] [address]- Attending Physician: Not on Staff, Attending MD Allergies, Adverse Reactions, Alerts No Known Medication Allergies Substance Reaction Severity Status Cats Active Medications diclofenac 3% topical gel 1 application, Topically, 2 times a day, # 50 Gm, 0 Refills, Maintenance, 02/22/22 11:25:00 EDT, [facility], Partial fill upon patient request if the prescription is for a schedule II opioid drug., 1 application Topically 2 t... Start Date: 02/22/22 Stop Date: 03/01/22 Status: Ordered doxycycline hyclate 100 mg oral tablet 1 tablet = 100 mg, By Mouth, 2 times a day, START TWO DAYS BEFORE PROCEDURE. TAKE WITH FOOD, # 10 tablet, 0 Refills, Maintenance, 03/12/23 13:53:00 EDT, [id number], Partial fill upon patient request if the prescription is for a schedule II... Start Date: 03/12/23 Status: Ordered Problem List Condition Confirmation Course [...] Team Personnel Name: Mary Pastor RN Position: [facility] RN Member Role: Primary Care Nurse Name: Kiran HERMAN, Junie Position: [facility] ED RN W/OE and Tasks Member Role: Primary Care Nurse Name: Not on Staff, PCP Position: [facility] Physician (General Medicine) Member Role: PCP Care Team Related Persons Name: DEE MOBLEY Address: [address] [address] Name: MYRA TRUONG Address: home [address] [place] [address] Name: JOSH TRUONG Address: [address] [address]
--- OUTSIDE RECORDS SUMMARY | 2024-02-13 23:19 | XMS_ITS | Continuity of Care Document ---
Author Organization [facility] Address [address] [place] [address]- Care Team Providers Care Solution Coordinator Name Role Phone Garret FORD, Yousif Salinas Primary Care Physician Encounter [facility] Date(s): 07/30/20 - 08/29/[address] [address]- Allergies, Adverse Reactions, Alerts Substance Reaction Severity Status Cats Active Medications Diflucan 150 mg oral tablet 1 tablet = 150 mg, By Mouth, Every week, One pill once per week for 6 months, # 4 tablet, 5 Refills, Acute 01/16/21 8:00:00 EDT, 08/06/20 16:42:00 EST, Tablet, [facility], Partial fill upon patient request if the prescription is f... Start Date: 08/06/20 Stop Date: 01/16/21 Status: Ordered fluconazole 150 mg oral tablet 1 tablet = 150 mg, By Mouth, Once, Repeat dose if still having symptoms in 72 hours, # 2 tablet, 0 Refills, Soft Stop, 07/30/20 13:50:00 EST, Tablet, [facility], Partial fill upon patient request if the prescription is for a sched... Start Date: 07/30/20 Status: Ordered Probiotic Formula By Mouth, Daily, 0 Refills, Maintenance, 08/16/20 9:23:00 EST, Partial fill upon patient request ifthe prescription is for a schedule II opioid drug. Start Date: 08/16/20 Status: Ordered Vitamin D 51395 iu oral capsule 50,000 International_Units, By Mouth, [...]
--- OUTSIDE RECORDS SUMMARY | 2024-02-13 23:19 | XMS_ITS | Continuity of Care Document ---
Author Organization [facility] Address [address] [place] [address]- Care Team Providers Care Marine Electrician Apprentice Name Role Phone Not on Staff, PCP Primary Care Physician Unavail able Encounter [facility] [place] Date(s): 08/01/23 - 08/31/[address] [address]- Allergies, Adverse Reactions, Alerts No Known Medication Allergies Substance Reaction Severity Status Cats Active Medications diclofenac 3% topical gel 1 application, Topically, 2 times a day, # 50 Gm, 0 Refills, Maintenance, 02/22/22 11:25:00 EDT, Gel, [facility], Partial fill upon [...] 10 tablet, 0 Refills, Maintenance, 05/09/23 [facility]08[id number] Partial fill upon patient [...] Care Nurse Name: Kiran HERMAN, Junie Position: S RN Member Role: Primary Care Nurse Name: Not on Staff, PCP Position: [facility] Physician (General Medicine) Member Role: PCP Care Team Related Persons Name: DEE MOBLEY Address: [address] [address] Name: MYRA TRUONG Address: [address] [address] Name: JOSH TRUONG Address: [address] [address]
--- OUTSIDE RECORDS SUMMARY | 2024-02-13 23:19 | XMS_ITS | Continuity of Care Document ---
Author Organization [facility] Address [address] [place] [address]- Care Team Providers Care Crusher Loader Equipment Operator Name Role Phone Garret FORD, Yousif Salinas Primary Care Physician [phone] [place] [facility] Date(s): 07/05/21 - 08/05/[address] [address]- Attending Physician: Milady Diallo CNM Admitting Physician: Milady Diallo CNM Allergies, Adverse Reactions, Alerts Substance Reaction Severity Status Cats Active Medications Diflucan 150 mg oral tablet See Instructions, Take 1 tablet today, then if symptoms persist take another tablet in 72 hours after first was taken., # 2 tablet, 0 Refills, Soft Stop, 07/08/21 15:21:00 EST, Tablet, [facility], Partial fill upon patient request... Start Date: 07/08/21 Status: Ordered fluconazole 150 mg oral tablet 1 tablet = 150 mg, By Mouth, Once, Repeat dose if still having symptoms in 72 hours, # 2 tablet, 0 Refills, Soft Stop, 07/30/20 13:50:00 EST, Tablet, [facility], Partial fill upon patient request if the prescription is for a sched... Start Date: 07/30/20 Status: Ordered hydrocortisone 1% topical cream 1 application, Topically, 2 times a day, Use 1-2 times per day for 3-4 weeks until follow up appointment, # 14 Gm, 1 Refills, Maintenance, 07/07/21 14:28:00 EST, Cream, [facility], Partial fill upon patient request [...] 07/07/21 14:24:00 EST, Route to Pharmacy Electronically, [facility], Partial fill upon patient request if the pr... Start Date: 07/07/21 Stop Date: 01/03/22 Status: Ordered Vitamin D 11368 iu oral capsule 50,000 International_Units, By Mouth, [...]
--- OUTSIDE RECORDS SUMMARY | 2024-02-13 23:19 | XMS_ITS | Continuity of Care Document ---
Author Organization [facility] Address [address] [place] [address]- Care Team Providers Care Line Mechanic Name Role Phone Garret FORD, Yousif Salinas Primary Care Physician [place] [facility] [place] 09/13/21 - 10/13/[address] [address]- Allergies, Adverse Reactions, Alerts Substance Reaction Severity Status Cats Active Medications fluconazole 150 mg oral tablet 1 tablet = 150 mg, By Mouth, Once, epeat dose if still having symptoms in 72 hours, # 2 tablet, 0 Refills, Soft Stop, 10/04/21 16:27:00 EDT, Tablet, [id number], Partial fill upon patient request if the prescription is for a schedule II opio... Start Date: 10/04/21 Status: Ordered hydrocortisone 1% topical cream 1 application, Topically, 2 times a day, Use 1-2 times per day for 3-4 weeks until follow up appointment, # 14 Gm, 1 Refills, Maintenance, 10/04/21 16:26:00 EDT, Cream, [facility], Partialfill upon patient request if the prescription is fo... Start Date: 10/04/21 Status: Ordered Valtrex 500 mg oral tablet 500 mg, 1, tablet, By Mouth, Daily, for 90 days, # 90 tablet, Refills 1, Tot. Refills 1, Acute 01/03/22 14:24:00 EDT, 07/07/21 14:24:00 EST, Route to Pharmacy Electronically, [facility], Partial fill upon patient request if [...]
--- OUTSIDE RECORDS SUMMARY | 2024-02-13 23:19 | XMS_ITS | Continuity of Care Document ---
Author Organization [facility] Address [address] [place] [address]- Care Team Providers Care Cashier Courtesy Booth Name Role Phone Not on Staff, PCP Primary Care Physician Unavail able Encounter [facility] Date(s): 08/15/23 - 09/14/[address] [address]- Allergies, Adverse Reactions, Alerts No Known Medication Allergies Substance Reaction Severity Status Cats Active Problem List Condition Confirmation Course Effective Dates [...] Care Nurse Name: Junie Beck RN Position: S RN Member Role: Primary Care Nurse Name: Not on Staff, PCP Position: [facility] Physician (General Medicine) Member Role: PCP Care Team Related Persons Name: DEE MOBLEY Address: [place] [address] [place] [address] Name: MYRA TRUONG Address: home [address] [place] [address] Name: JOSH TRUONG Address: home [address] [place] [address]
--- OUTSIDE RECORDS SUMMARY | 2024-02-13 23:19 | XMS_ITS | Continuity of Care Document ---
Author Organization [facility] Address [address] [place] [address]- Care Team Providers Care Deckhand Shrimp Boat Name Role Phone Garret FORD, Yousif Salinas Primary Care Physician [phone] [place] [facility] [place]): 02/17/21 - 04/17/21 [facility] [address] [address]- Attending Physician: Not on Staff, Attending MD Allergies, Adverse Reactions, Alerts Substance Reaction Severity Status Cats Active Medications fluconazole 150 mg oral tablet 1 tablet = 150 mg, By Mouth, Once, Repeat dose if still having symptoms in 72 hours, # 2 tablet, 0 Refills, Soft Stop, 07/30/20 13:50:00 EST, Tablet, [facility], Partial fill upon patient request if the prescription is for a sched... Start Date: 07/30/20 Status: Ordered Probiotic Formula By Mouth, Daily, 0 Refills, Maintenance, 08/16/20 9:23:00 EST, Partial fill upon patient request ifthe prescription is for a schedule II opioid drug. Start Date: 08/16/20 Status: Ordered Vitamin D 50518 iu oral capsule 50,000 International_Units, By Mouth, [...]
--- OUTSIDE RECORDS SUMMARY | 2024-02-13 23:19 | XMS_ITS | Continuity of Care Document ---
Author Organization [facility] Address [address] [place] [address]- Care Team Providers Care Frozen Food Selector Name Role Phone Garret FORD, Yousif Salinas Primary Care Physician Encounter [facility] [place] Date(s): 02/02/22 - 03/04/[address] [address]- Allergies, Adverse Reactions, Alerts Substance Reaction Severity Status Cats Active Medications diclofenac 3% topical gel 1 application, Topically, 2 times a day, # 50 Gm, 0 Refills, Maintenance, 02/22/22 11:25:00 EDT, Gel, [facility], Partial fill upon patient request if the prescription is for a schedule II opioid drug., 1 application Topically 2 t... Start Date: 02/22/22 Stop Date: 03/01/22 Status: Ordered fluconazole 150 mg oral tablet 1 tablet = 150 mg, By Mouth, Once, epeat dose if still having symptoms in 72 hours, # 2 tablet, 0 Refills, Soft Stop, 10/04/21 16:27:00 EDT, Tablet, [facility], Partial fill upon patient request if the prescription is for a schedule II opio... Start Date: 10/04/21 Status: Ordered hydrocortisone 1% topical cream 1 application, Topically, 2 times a day, Use 1-2 times per day for 3-4 weeks until follow up appointment, # 14 Gm, 1 Refills, Maintenance, 10/04/21 16:26:00 EDT, Cream, [facility], Partialfill upon patient request if the prescription is fo... Start Date: 10/04/21 Status: Ordered Problem List Condition Effective Dates Status Health Status Inform ant Eczema(Confirmed) 1 Active Mixed incontinence(Confirmed) Active Low back pain(Confirmed) Active Obese class II(Confirmed) Active Breast pain, right(Confirmed) Active 1right nipple Social History Social History Type Response Smoking Status Never (less than 100 in lifetime) entered on: 07/30/20 Sex Care Team Personnel Name: Yousif Combs MD Address: [address] [place] [address], [address] [facility] [place], [place] [address]
--- OUTSIDE RECORDS SUMMARY | 2024-02-13 23:19 | XMS_ITS | Continuity of Care Document ---
Author Organization [facility] Address [address] [place] [address]- Care Team Providers Care Market Investigator Name Role Phone Not on Staff, PCP Primary Care Physician Unavail able [place] [facility] [place](s[place] 10/29/23 - 11/28/[address] [address]- Attending Physician: Willy Taylor Admitting Physician: Willy Taylor Referring Physician: trWilly Allergies, Adverse Reactions, Alerts No Known Medication [...] 10/03/23 3:01:00 EDT, Route to Pharmacy Electronically, [facility], Partial fill upon patient request if the prescription is for a sc... Start Date: 10/03/23 Status: Ordered Tylenol 325 mg oral tablet 975 mg, 3, tablet, By Mouth, Every 8 hours, PRN, # 30 tablet, Refills 0, Tot. Refills 0, Maintenance, for pain, 10/03/23 3:01:00 EDT, Route to Pharmacy Electronically, [facility] [...] Team Personnel Name: Mary Pastor RN Position: [facility] RN Member Role: Primary Care Nurse Name: Junie Beck RN Position: [facility] RN Member Role: Primary Care Nurse Name: Not on Staff, PCP Position: [facility] Physician (General Medicine) Member Role: PCP Care Team Related Persons Name: DEE MOBLEY Address: home [address] [place] [id number] Name: MYRA TRUONG Address: home [address] [place] [address] Name: JOSH TRUONG Address: [address] [address]
--- OUTSIDE RECORDS SUMMARY | 2024-02-13 23:19 | XMS_ITS | Continuity of Care Document ---
Author Organization [facility] Address [address], [address] [place] [address]- Care Team Providers Care Line Up Examiner Name Role Phone Garret FORD, Yousif Salinas Primary Care Physician Encounter [facility] Date(s): 07/08/21 - 08/07/21 [facility] [employer] [address]th [place] [address]- Attending Physician: Willy Taylor Admitting Physician: AdmWilly mares Referring Physician: AdmtrWilly Allergies, Adverse Reactions, Alerts Substance Reaction Severity [...] Stop Date: 01/03/22 Status: Ordered Vitamin D 68002 iu oral capsule 50,000 International_Units, By Mouth, [...]
--- OUTSIDE RECORDS SUMMARY | 2024-02-13 23:19 | XMS_ITS | Continuity of Care Document ---
Author Organization [facility] Address [address] [place] [address]- Care Team Providers Care Dice Table Operator Name Role Phone Not on Staff, PCP Primary Care Physician Unavail able Encounter [facility] [place] Date(s): 12/14/23 - 01/13/[address] [address]- Attending Physician: Willy Taylor Admitting Physician: Willy Taylor Referring Physician: Willy Taylor Allergies, Adverse Reactions, Alerts No Known Medication [...] 10/03/23 3:01:00 EDT, Route to Pharmacy Electronically, [facility], Partial fill upon patient request if the prescription is for a sc... Start Date: 10/03/23 Status: Ordered Tylenol 325 mg oral tablet 975 mg, 3, tablet, By Mouth, Every 8 hours, PRN, # 30 tablet, Refills 0, Tot. Refills 0, Maintenance, for pain, 10/03/23 3:01:00 EDT, Route to Pharmacy Electronically, [facility], Partial fill upon [...] Care Nurse Name: Junie Beck RN Position: [facility] RN Member Role: Primary Care Nurse Name: Not on Staff, PCP Position: [facility] Physician (General Medicine) Member Role: PCP Care Team Related Persons Name: DEE MOBLEY Address: home [address] [place] [address] Name: MYRA TRUONG Address: home [address] [place] [address] Name: JOSH TRUONG Address: home [address] [place] [address]
--- OUTSIDE RECORDS SUMMARY | 2024-02-13 23:19 | XMS_ITS | Continuity of Care Document ---
Author Organization [facility] Address [address] [place] [address]- Care Team Providers Care [facility] Name Role Phone Garret FORD, Yousif Salinas Primary Care Physician [phone] Encounter [facility] [place] 08/10/21 - 09/09/[address] [address] Allergies, Adverse Reactions, Alerts Substance Reaction Severity Status Cats Active Medications fluconazole 150 mg oral tablet 1 tablet = 150 mg, By Mouth, Once, # 1 tablet, 0 Refills, Soft Stop, 09/09/21 17:15:00 EDT, Tablet,[facility], Partial fill upon patient request if the prescription is for a schedule II opioid drug., 153, cm, 07/07/21 13:15:00 ES... Start Date: 09/09/21 Status: Ordered hydrocortisone 1% topical cream 1 application, Topically, 2 times a day, Use 1-2 times per day for 3-4 weeks until follow up appointment, # 14 Gm, 1 Refills, Maintenance, 07/07/21 14:28:00 EST, Cream, [facility], Partial fill upon patient request [...] 07/07/21 14:24:00 EST, Route to Pharmacy Electronically, [facility], Partial fill upon patient request if the pr... Start Date: 07/07/21 Stop Date: 01/03/22 Status: Ordered Vitamin D 06610 iu oral capsule 50,000 International_Units, By Mouth, [...]
--- OUTSIDE RECORDS SUMMARY | 2024-02-13 23:19 | XMS_ITS | Continuity of Care Document ---
Author Organization [facility] ter Address [address] [place] [id number]- Care Team Providers Care [employer] Worker Name Role Phone Not on Staff, PCP Primary Care Physician Unavail able Encounter [facility] [place] Date(s): 10/02/23 - 10/03/[address] [address] Discharge Disposition: A-D/C Home Attending Physician: Camron Montemayor DO Admitting Physician: Camron Montemayor DO Referring Physician: Camron Montemayor DO Allergies, Adverse Reactions, Alerts No Known Medication [...] 10/03/23 3:01:00 EDT, Route to Pharmacy Electronically, [facility], Partial fill upon patient request if the prescription is for a sc... Start Date: 10/03/23 Status: Ordered oxyCODONE 5 mg oral tablet 5 mg, Tablet, By Mouth, Once, STAT, 10/02/23 20:56:00 EDT, Stop date 10/02/23 20:56:00 EDT Start Date: 10/02/23 Stop Date: 10/02/23 Status: Completed Tylenol 325 mg oral tablet 975 mg, 3, tablet, By Mouth, Every 8 hours, PRN, # 30 tablet, Refills 0, Tot. Refills 0, Maintenance, for pain, 10/03/23 3:01:00 EDT, Route to Pharmacy Electronically, [facility], Partial fill upon patient request if the prescript... Start Date: 10/03/23 Status: Ordered Problem List Condition Confirmation Course Effective Dates Status Health St atus Informant Asthma Confirmed Active Chronic constipation Confirmed Active Eczema 1 Confirmed Active Mixed incontinence Confirmed Active Low back pain Confirmed Active Obese class II Confirmed Active Sleep apnea Confirmed Active 1right nipple Results Radiology Reports * Exam Date Time Procedure Performing Provider Status 10/03/23 1:17 AM US Pelvic Doppler Comp Kiran Evans; Cecilia (Verified) Notes: (US Pelvic Doppler Comp) Reason For Exam: Pelvic Pain;Other: RESULT: US Pelvic Doppler Comp US Pelvic Transabdominal, US Pelvic Transvaginal, US Pelvic Doppler Comp Reason: Other:; Pelvic Pain; Clinical Question(s): Torsion; Post-op day 1 from a HSG and presentingwith diffuse abdominal pain; Order Comment: US Pelvic Non-Ob Comp Prep COMPARISON: 08/18/2021. TECHNIQUE: Transabdominal and transvaginal pelvic ultrasound with grayscale, color Doppler, and spectral Doppler analysis. FINDINGS: UTERUS: Size: 7.0 x 3.0 x 3.7 cm, volume 40.4 cc. Endometrial thickness: 0.7 cm. Morphology: Normal configuration and echotexture. RIGHT OVARY: Size: 2.8 x 1.8 x 3 cm, volume 7.9 cc. Morphology: Normal echotexture. No pathologic cysts or mass. Normal arterial and venous waveforms. LEFT OVARY: Size: 2.5 x 1.7 x 1.9 cm, volume 4.4 cc. Morphology: Normal echotexture. No pathologic cysts or mass. Normal arterial and venous waveforms. ADNEXA: Normal. No adnexal masses or fluid collections. IMPRESSION: No evidence for ovarian torsion. Unremarkable study. I have personally reviewed the images and I agree with this report. WSN: [id number] Ordering Physician: Kylee Wall Dictated By: Wilmer[Radiology] Scot FORD Dictated Date/Time: 10/03/23 6:56 am Reviewed By: Gustavo Newell MD Signed By: Gustavo Newell MD Signed Date/Time: 10/03/23 7:01 am Transcribed By: DEMETRICE Transcribed Date/Time: 10/03/23 1:47 am * Exam Date Time Procedure Performing Provider Status 10/03/23 1:17 AM US Pelvic Transvaginal Kang Evans (Verified) Notes: (US Pelvic Transvaginal) Reason For Exam: Pelvic Pain;Other: RESULT: US Pelvic Transvaginal US Pelvic Transabdominal, US Pelvic Transvaginal, US Pelvic Doppler Comp Reason: Other:; Pelvic Pain; Clinical Question(s): Torsion; Post-op day 1 from a HSG and presentingwith diffuse abdominal pain; Order Comment: US Pelvic Non-Ob Comp Prep COMPARISON: 08/18/2021. TECHNIQUE: Transabdominal and transvaginal pelvic ultrasound with grayscale, color Doppler, and spectral Doppler analysis. FINDINGS: UTERUS: Size: 7.0 x 3.0 x 3.7 cm, volume 40.4 cc. Endometrial thickness: 0.7 cm. Morphology: Normal configuration and echotexture. RIGHT OVARY: Size: 2.8 x 1.8 x 3 cm, volume 7.9 cc. Morphology: Normal echotexture. No pathologic cysts or mass. Normal arterial and venous waveforms. LEFT OVARY: Size: 2.5 x 1.7 x 1.9 cm, volume 4.4 cc. Morphology: Normal echotexture. No pathologic cysts or mass. Normal arterial and venous waveforms. ADNEXA: Normal. No adnexal masses or fluid collections. IMPRESSION: No evidence for ovarian torsion. Unremarkable study. I have personally reviewed the images and I agree with this report. WSN: [id number] Ordering Physician: Kylee Wall Dictated By: Wilmer[Radiology] Scot FORD Dictated Date/Time: 10/03/23 6:56 am Reviewed By: Gustavo Newell MD Signed By: Gustavo Newell MD Signed Date/Time: 10/03/23 7:01 am Transcribed By: DEMETRICE Transcribed Date/Time: 10/03/23 1:47 am * Exam Date Time Procedure Performing Provider Status 10/03/23 1:17 AM US Pelvic Transabdominal Robles Evans (Verified) Notes: (US Pelvic Transabdominal) Reason For Exam: Pelvic Pain;Other: RESULT: US Pelvic Transabdominal US Pelvic Transabdominal, US Pelvic Transvaginal, US Pelvic Doppler Comp Reason: Other:; Pelvic Pain; Clinical Question(s): Torsion; Post-op day 1 from a HSG and presentingwith diffuse abdominal pain; Order Comment: US Pelvic Non-Ob Comp Prep COMPARISON: 08/18/2021. TECHNIQUE: Transabdominal and transvaginal pelvic ultrasound with grayscale, color Doppler, and spectral Doppler analysis. FINDINGS: UTERUS: Size: 7.0 x 3.0 x 3.7 cm, volume 40.4 cc. Endometrial thickness: 0.7 cm. Morphology: Normal configuration and echotexture. RIGHT OVARY: Size: 2.8 x 1.8 x 3 cm, volume 7.9 cc. Morphology: Normal echotexture. No pathologic cysts or mass. Normal arterial and venous waveforms. LEFT OVARY: Size: 2.5 x 1.7 x 1.9 cm, volume 4.4 cc. Morphology: Normal echotexture. No pathologic cysts or mass. Normal arterial and venous waveforms. ADNEXA: Normal. No adnexal masses or fluid collections. IMPRESSION: No evidence for ovarian torsion. Unremarkable study. I have personally reviewed the images and I agree with this report. WSN: [id number] Ordering Physician: Kylee Wall Dictated By: Wilmer[Radiology] Scot FORD Dictated Date/Time: 10/03/23 6:56 am Reviewed By: Gustavo Newell MD Signed By: Gustavo Newell MD Signed Date/Time: 10/03/23 7:01 am Transcribed By: DEMETRICE Transcribed Date/Time: 10/03/23 1:47 am Vital Signs Most recent to oldest [Reference Range]: 1 2 Height 153 cm (10/02/23 7:09 PM) 153 cm (10/02/23 5:34 PM) Oxygen Saturation [94-100 %] 100 % (10/02/23 5:30 PM) Pulse Rate [55-90 bpm] 93 bpm *H* (10/02/23 5:30 PM) Blood Pressure [90-138/55-84 mm Hg] 125/ 85mm Hg (10/02/23 5:30 PM) Respiratory Rate [16-30 br/min] 17 br/mi n (10/02/23 9:03 PM) 18 br/min (10/02/23 5:30 PM) Temperature [96.8-100.4 DegF] 97.9 DegF (10/02/23 5:30 PM) Blood pressure sites Arm, right (10/02/23 5:30 PM) Temperature Route Oral (10/02/23 5:30 PM) Dry Weight 86.8 kg (10/02/23 5:30 PM) Dry Weight Obtained Via Standing scale (10/02/23 5:30 PM) Social History Social History Type Response Smoking Status Never (less than 100 in lifetime) entered on: 07/30/20 Sex Note * Yumiko Marie RN: PERFORM Event Display: Discharge/Transfer Note Hospital Authored Date: [id number] Nursing Discharge Note Entered On: 10/03/2023 3:04 EDT Performed On: 10/03/2023 3:02 EDT by Yumiko Marie RN Nursing Discharge Note 2 Discharge Time : 10/03/2023 3:02 EDT Discharge Level of Care at Discharge : Home/Assisted/Foster Care Patient Left Unit Via : Ambulatory Patient Accompanied Off Unit with : Other: self DC Instructions Provided & Signed by Pt : Yes Patient Understands D/C Instructions : Yes Patient Instructions Discharge Signed : Yes Did Pt have Specialty Bed or Wound Vac : No Yumiko Marie RN - 10/03/2023 3:03 EDT * Event Display: Discharge/Transfer Note Hospital Authored Date: * Yumiko Marie RN: PERFORM Event Display: Patient Education/Instruction Authored Date: [id number] Inpatient Adult Discharge Instructions. [address] [address] Name: CHRIS TRUONG : 1990?? Visit: 10/02/2023 17:14?? Current Date: 10/03/2023 02:14 ?? Account: [id number]?? Inpatient Adult Discharge Instructions We would like to thank you for allowing us to assist you with your healthcare needs. The following includes patient education materials and information regarding your injury/illness. Our entire staffstrives to provide an excellent experience for our patients and their families. PLEASE ENSURE YOU FOLLOW-UP PER THE INSTRUCTIONS BELOW! ?? YOUR OPINION IS IMPORTANT TO US! Please complete the survey you may receive by mail or email. Your feedback will be used to make improvements to the healthcare experiences of our patients and their families. Surveys are administered by [employer] ?? If further treatment with your primary care physician or another doctor is recommended, it is important for you to keep the appointment. Call your primary care physician or return to the Emergency Department immediately if your condition worsens, fails to improve, or new symptoms develop. If you need to find a doctor, you can call [facility] for a referral at [phone] or toll free at [phone] ([phone]) or log in to [email or web address].. ?? [facility], in keeping with [facility] guidance, no longer requires face masks for staff, patientsor visitors in most situations. Similiar to time spent indoors at other locations, there is the chance that you were exposed to repiratory viruses during your time with us (such as flu or COVID-19). If you develop symptoms concerning for a viral respiratory infection, please seek testing (and treatment if indicated) from your medical provider or home test kit. ?? You can view and manage your care through the patient portal or by using a health care aleja of your choosing. [employer] is a website that allows you to securely view your medical information including your hospital discharge summary, office visit summaries, medications and follow-up visits. You can also request appointments, renew medications, and request access to your medical information using a health care aleja of your choosing, or just ask a question. You can enroll at [email or web address] or register during your next office visit. You have been discharged from [facility], Patient Care Unit: [id number]??. If you have any questions regarding these instructions, including results of studies pending, afteryou leave, please call us and we will be happy to assist you 08/01. [facility] Your Care Team Attending Physician Sim JOHNSON, Camron Miller?? Consulting Providers Sim DO, Camron Miller?? Tests Performed Below is a partial list of the tests performed during your hospitalization. You may have had other tests and procedures not included in this list. Please discuss all test results with your provider. CBC w/ Differential Complete Urinalysis Comprehensive Metabolic Panel Culture Urine?-- Results Pending -- Lipase US Pelvic Doppler Comp?-- Results Pending -- US Pelvic Transvaginal?-- Results Pending -- You will be contacted within 72 hours with your results. US Pelvic Doppler Comp?? US Pelvic Transabdominal?? US Pelvic Transvaginal?? Urine Culture (Culture Urine)?? Primary Care Provider Not on Staff, PCP?? Advance Directive Health Care Proxy on File Yes - Health Care Proxy Discharge Vitals Temperature: 97.9 DegF Height: 153 cm Pulse Rate:??93 bpm??High ?? Respiratory Rate: 17 br/min ?? Systolic Blood Pressure: 125 mm Hg ?? Diastolic Blood Pressure:??85 mm Hg??High ?? Oxygen Saturation: 100 % ?? Studies Pending All studies ordered during this hospital stay have been completed unless listed below. Please discuss all pending results with your provider listed above in these instructions. ?? US Pelvic Doppler Comp?? US Pelvic Transabdominal?? US Pelvic Transvaginal?? Urine Culture (Culture Urine)?? What to do next Instructions From Your Doctor ?? Orders?? Scheduled Follow-Up Appointments Sunday 7:45 PM EDT ?? Where: [place] [address]- Status: Pending You Need to Schedule the Following Appointments Follow Up with??[facility] [phone] Discharge Medications CHRIS TRUONG :1990 Visit Date:10/02/2023 Medications: Please continue your medications until treatment is completed or stopped by your provider. Medications not listed below should be discontinued. Discuss any questions related to medications with your provider. What How Much When Instructions Next Dose Unchanged Doxycycline (doxycycline hyclate 100 mg oral capsule) 1 capsule Oral Twice a day Duration: 5 Days Please start taking twice daily 2 days prior to scheduled HSG procedure, and continue for total 5 days. May take with food to minimize abdominal discomfort. Avoid sun exposure. ?? Prescription Given During Visit No new medications prescribed at time of discharge.?? Laboratory Results Below is a partial list of the most recent Laboratory test results done prior to this discharge. You may have had other tests and procedures not included in this list. Please discuss all test resultswith your provider. Est Creatinine Clearance - 57.62 mL/min (10/02/2023) CBC w/ Differential (10/02/2023) ???WBC - 7.2 k/mm3???RBC - 4.72 m/mm3???Hgb - 13.6 Gm/dL???Hct - 40.7 %???MCV - 86.2 femtoliters???MCH - 28.8 pg???MCHC - 33.4 g/dL???Platelet Count - 290 k/mm3???RDW-SD - 39.0 femtoliters???MPV - 8.8 femtoliters???Nucleated RBC (Automated) - 0.0 #/100 WBC'S???Abs. NRBC - 0.0 k/mm3???Abs. Neut - 4.0 k/mm3???Abs. Lymph - 2.7 k/mm3???Abs. Russell - 0.4 k/mm3???Abs. Eo - 0.1 k/mm3???Abs. Baso - 0.0 k/mm3???Neut % - 55.5 %???Lymph % - 37.3 %???Russell % - 5.0 %???Eos % - 1.8 %???Baso % - 0.3 %???Imm Gran- 0.1 %???Abs. Imm Gran - 0.0 k/mm3 Complete Urinalysis (10/03/2023) ???Appear/Color, Urine - YELLOW???Specific [place], Urine - 1.037???pH, Urine - 6.0???Albumin, Urine - TRACE???Glucose, Urine - NEGATIVE???Ketones, Urine - TRACE???Bilirubin, Urine - NEGATIVE???Hemoglobin, Urine - NEGATIVE???Nitrite, Urine - NEGATIVE???Leukocyte, Urine - NEGATIVE???Urobilinogen - 2mg/dL???WBC's, Urine - 1 /HPF???RBC's, Urine - 2 /HPF???Bacteria - SLIGHT???Squamous Epith - 1 /HPF???Mucus - SLIGHT Comprehensive Metabolic Panel (10/02/2023) ???Sodium - 141 mmol/L???Potassium - 4.2 mmol/L???Chloride - 105 mmol/L???Bicarbonate Level - 24 mmol/L???Anion Gap - 12???Glucose Level - 98 mg/dL???BUN - 18 mg/dL???Creatinine-Blood - 1.0 mg/dL???Estimated GFR Creatinine - 78 ML/MIN/1.73 M2???Calcium - 9.5 mg/dL???Protein, Total - 7.1 Gm/dL???Albumin - 4.3 Gm/dL???AG Ratio - 1.5???Alkaline Phosphatase - 74 units/L???AST (SGOT) - 25 units/L???ALT (SGPT) - 24 units/L???Bilirubin, Total - 0.4 mg/dL Lipase (10/02/2023) ???Lipase - 24 units/L Allergies (NKA means No Known Allergies) Cats No Known Medication Allergies Problems Active Problems??(7) Asthma?? Chronic constipation?? Eczema?? Low back pain?? Mixed incontinence?? Obese class II?? Sleep apnea?? Education Materials Below is the list of Educational Leaflet Providered with your Discharge Instructions. [employer] Patient Education - Hysterosalpingogram (HSG)?? [employer] Patient Education - Abdominal Pain?? [employer] Patient Education - Unknown Causes of Abdominal Pain(Adult)?? Valuables and Belongings I fully understand and agree that [facility] accepts no responsibility for all my personal property including clothing, toilet articles, radios, jewelry, dentures, hearing aids, rings, money, or any other property that is in my possession or is brought to me after admission. I understand certain valuables may be placed in a hospital safe for a short period of time. I understand that the hospital is not liable for loss or damage due to accident, fire, or other natural occurrence while said property is in the safe. I accept full responsibility for any personal property that I keep with me, and will not hold the hospital responsible in case of loss or disappearance. I acknowledge that i have been encouraged to send valuables and belongings home. ? Other Discharge Information ? Pulmonary Rehab Status?? Pulmonary Rehab Discharge Status?? Respiratory Rate: 17 br/min ? Common Emergency Awareness Tips IS IT A STROKE? Act FAST and Check for these signs: FACE Does the face look uneven? ARM Does one arm drift down? SPEECH Does their speech sound strange? TIME Call at any sign of stroke ?? Heart Attack Signs Chest discomfort: Most heart attacks involve discomfort in the center of the chest and lasts more than a few minutes, or goes away and comes back. It can feel like uncomfortable pressure, squeezing, fullness or pain. Discomfort in upper body: Symptoms can include pain or discomfort in one or both arms, back, neck, jaw or stomach. Shortness of breath: With or without discomfort. Other signs: Breaking out in a cold sweat, nausea, or lightheaded. Remember, MINUTES DO MATTER. If you experience any of these heart attack warning signs, call to get immediate medical attention! ?? Smoking can increase your chances of developing chronic health problems and can cause harmful effects to other family members in your house. If you smoke, you are strongly encouraged to quit. Please call [facility] at [phone] or [phone] ([phone]) or log in to [email or web address] for referrals to smoking cessation programs. ?? 339 Suicide & Crisis Lifeline is available 08/01 if you or someone you know needs to find a reason to keep living. By calling 253 you'll be connected to a skilled, trained counselor at a crisis center in your area. INPATIENT DISCHARGE INSTRUCTIONS SIGNATURE PAGE CHRIS TRUONG Location:[facility] Registration Date and Time:10/02/2023 17:14 EDT Primary Care Physician: Not on Staff, PCP Attending Physician: Camron Montemayor DO, I CHRIS TRUONG, have received the above patient education materials/instructions and have verbalized understanding. If ambulance or transport services are being used I further acknowledge being given a choice of service. ?? If you need to contact me, please call me at this number: . Patient/Elevated Work Platform Operator Name: Patient/Elevated Work Platform Operator Signature: Relationship to Patient: Witness Name/Signature: Date: * Yumiko Marie RN: PERFORM Event Display: Patient Education Leaflets Authored Date: [id number] Hysterosalpingogram (HSG) ?? [address] Hysterosalpingogram (HSG) HSG??(hysterosalpingogram) is an X-ray test used to view your uterus and fallopian tubes.??It???s most often used to??help diagnose why you are not able to get . HSG is done in the X-ray center of a hospital or clinic. During the procedure, your manager strategic marketing or a radiologist (a doctor who specializes in the use of X-rays) takes images as a contrast dye flows through the uterus and fallopian tubes. The dye makes it easier to see these organs on X-rays. It can also help pinpoint the location of problems. In some cases, your healthcare provider will be present during the test. HSG usually takes less than 30??minutes. You can often go back to your normal routine within a short time. How to say it [id number]-hyc-vim-[id number]-yf-gram ?? Why might I need HSG? HSG is used to diagnose problems with the fallopian tubes and uterus. These can include: ??? Blockage or narrowing of the fallopian tubes ??? Scarring of the fallopian tubes and uterus ??? Abnormalities in the shape and size of the fallopian tubes and uterus ??? Growths in the uterus ?? What are the risks? Problems with HSG are rare but can include: ??? Infection ??? Bleeding ??? Allergic reaction to thedye ??? Damage to the uterus or fallopian tubes (very rare) ?? How do I get ready for HSG? The procedure will be scheduled shortly after the end of your menstrual period. This helps ensure you are not .??When you schedule your test, tell your healthcare provider if you have allergies to iodine, contrast materials, foods, medicines, dyes, or preservatives. Tell your provider aboutany past surgeries and recent illnesses. Also tell them what medicines you are taking. You will be asked to sign a consent form and may want to arrange for a ride home after the procedure. In some cases, you???ll be given antibiotics to take before and after the test. A day or 2 before the exam, your healthcare provider may ask you to:? Not have sex ??? Stop the use of creams or other vaginal medicines. ??? Not douche ??? Take mati-iek-vemrjng pain medicines a few hours before the test. This procedure should not be done if you have an active inflammatory condition. Tell your doctor ortechnologist if you have a chronic pelvic??or vaginal??infection or an untreated sexually transmitted infection at the time of the procedure.? What happens during HSG? You will be asked to lie on an X-ray table with your knees bent???muchlike a Pap test. ??? An instrument called a speculum is inserted into the vagina to hold it open. ??? The cervix may be numbed. Then a catheter (thin tube) is guided through the cervix and into the uterus. In some cases, the cervix may need to be dilated first to widen the cervical opening. ??? TheX-ray machine will be positioned over your abdomen. Then, contrast dye is injected through the catheter. ??? The dye may stretch the uterus and tubes, causing some cramping or pain. ??? As the dye flows through the uterus and tubes, X-rays are taken and displayed on a monitor. You may be able to watch the progress of the dye on the monitor. You might be asked to change positions. ??? It is normalfor some dye to spill out of the tubes and be absorbed by the body. The rest may appear later as vaginal discharge. ?? What happens after HSG? If you feel lightheaded or dizzy, you can rest on the table until you???re ready to get dressed. ??? You will likely have a thick discharge as some of the dye drains out of the uterus. You may have a small amount of bleeding for a day or two. Use pads, not tampons, until the discharge is gone. ??? For a few hours you may feel some cramping. This can usually be relieved with emyn-lcb-htrnnng pain medicines. ??? You may be told not to have sex or douche for a day or two. After the radiologist has studied the X-rays, your healthcare provider will talk with you about theresults of your HSG. This may be later the same day or during a follow-up appointment. In some cases, more tests may be needed to look more closely at your reproductive organs. Your healthcare provider may also recommend medicine or surgery to help correct a problem. ?? When should I call my healthcare provider? ?? Contact your healthcare provider if you have any of the following: ??? Severe pelvic pain or pelvicpain that gets worse ??? Heavy vaginal bleeding. This means more than a pad an hour for 2 hours. ??? Vomiting ??? Fever of 100.4??F (38??C) or higher, or as advised by your provider ??? Foul-smellingor unusual vaginal discharge ?? Last Reviewed Date: 2022 ?? 7084-8951 [employer]. All rights reserved. This information is not intended as a substitute for professional medical care. Always follow your healthcare professional's instructions. ?? * Cynthia HERMAN, Yumiko Diaz: PERFORM Event Display: Patient Education Leaflets Authored Date: [id number] Abdominal Pain ?? [address]69 Abdominal Pain Abdominal pain means pain in the stomach or belly area. Everyone has this kind of pain from time totime. In many cases, it goes away on its own. Some types of abdominal pain can be from a serious problem. One example is appendicitis. So it???s important to know when to get help. Causes of abdominal pain There are many causes of abdominal pain. Common causes in adults include: ??? Constipation, diarrhea, or gas ??? Stomach and intestine inflammation from a virus or bacteria (gastroenteritis) ??? Stomach acid flowing back up into the esophagus (acid reflux) ??? Severe acid reflux, called gastroesophageal reflux disease (GERD) ??? A sore in the lining of the stomach or small intestine (peptic ulcer) ??? Inflammation of the gallbladder, liver,??or pancreas ??? Gallstones or kidney stones ??? Appendicitis? Intestinal blockage? An internal organ pushing through a muscle or other tissue (hernia) ??? Urinary tract infections ??? Menstrual cramps ??? Fibroids in the uterus ??? Ovarian cysts ??? Pelvic inflammatory disease in women ??? Endometriosis ??? Crohn's disease ??? Ulcerative colitis ??? Irritable bowel syndrome ?? Diagnosing the cause of abdominal pain Your healthcare provider will give you a physical exam. This is to help find the cause of your pain. If needed, you'll have tests. Belly pain has many possible causes. So it may take a little time tofind the reason for your pain. Give details about the type of pain you feel. Tell your healthcare provider if it's sharp or dull. Tell them where and when you feel the pain. Tell them what makes it better or worse. And tell them if you have other symptoms such as: ??? Fever ??? Tiredness ??? Upset stomach (nausea) ??? Vomiting ??? Changes in bathroom habits ??? Blood in the stool or black, tarry stool ??? Unexpected weight loss Tell your healthcare provider: ??? If you have a family history of stomach or intestinal problems or cancer ??? About your alcohol use and any illegal drug use ??? All medicines you take, both prescription and [id number] ??? What vitamins, herbs, and other supplements you take ?? Treating abdominal pain Some causes of pain need emergency medical care right away. These include appendicitis or a bowel blockage. Other problems can be treated with rest, fluids, or medicines. Your healthcare provider cangive you instructions. You may need treatment or self-care based on what's causing your pain. If you have vomiting or diarrhea,?? sip water or other clear fluids. When you're ready to eat solidfoods again, start lightly. Eat small amounts of [id number]-[id number], low-fat foods. These include applesauce, toast, or crackers. ?? Call 911 Call 911??right away if you: ??? Can???t pass stool and are vomiting ??? Are vomiting blood ??? Have bloody diarrhea or black, tarry diarrhea ??? Have chest, neck, or shoulder pain ??? Feel like you might pass out (faint) ??? Have pain in your shoulder blades and nausea ??? Have sudden, severe belly pain ??? Have new, severe??pain unlike any you've felt before ??? Have a belly that is rigid, hard, and hurts to touch ?? When to call the healthcare provider Call your healthcare provider or seek medical care right away if you have any of these: ??? Pain that's worse or not getting better ??? Bloating that's worse or not getting better ??? Diarrhea that'sworse or not getting better ??? Fever of 100.4??F (38??C) or higher, or as advised ??? Weight loss for no reason ??? Continued lack of appetite ??? Blood in your stool ?? How to prevent abdominal pain Here are some tips to help prevent abdominal pain: ? ? Eat smaller amounts of food at each meal. ? ? >Don't eat greasy, fried, or other high-fat foods. ??? Don't eat foods that give you gas. ??? Exercise regularly. ??? Drink plenty of fluids. To help prevent GERD symptoms: ??? Quit smoking. ??? Reduce alcohol and foods that increase stomachacid. ??? Don't use aspirin or nonsteroidal anti- inflammatory drugs (NSAIDs). ??? Lose excess weight. ??? Finish eating at least 2 hours before you go to bed or lie down. ??? Raise the head of your bed. ?? Last Reviewed Date: 2023 ?? [employer]. All rights reserved. This information is not intended as a substitute for professional medical care. Always follow your healthcare professional's instructions. ?? * Cynthia HERMAN, Yumiko Diaz: PERFORM Event Display: Patient Education Leaflets Authored Date: [id number] Unknown Causes of Abdominal Pain(Adult) ?? [id number] Unknown Causes of Abdominal Pain(Adult) The exact cause of your belly (abdominal) pain is not clear. Your exam and tests don't suggest a dangerous cause at this time. This does not mean that this is something to worry about. Everyone likesto know the exact cause of the problem. But sometimes with belly pain, there is no clear-cut cause,and this could be a good thing. Your symptoms can be treated, and you should feel better.?? Your condition does not seem serious now. But sometimes the signs of a serious problem may take more time to appear. For this reason,??it's important for you to watch for any new symptoms, problems,??or worsening of your condition. Over the next few days, the abdominal pain may come and go. Or it may be constant. Other common symptoms can include nausea and vomiting. Sometimes it can be difficult to tell if you feel nauseous. You may just feel bad and not connect that feeling to nausea. Constipation, diarrhea, and a fever maygo along with the pain. The pain may continue even if treated correctly over the following days. Depending on how things go, sometimes the cause can become clear and you may need more??or different treatment. You may also need other evaluations, medicines, or tests. Home care Your healthcare provider may prescribe medicine for pain, symptoms, or an infection. ??Follow the healthcare provider's instructions for taking these medicines. General care ??? Rest as much as you can until your next exam. No strenuous activities. ??? Try to not do anything that may have caused your symptoms. This might be not taking any medicines unless otherwise directed by your healthcare provider. It might be not eating certain foods or doing certain activities. ??? Find positions that ease discomfort. A small pillow placed on your belly may help relieve pain. ??? Something warm on your belly such as a heating pad may help, but be careful not to burn yourself. Diet ??? Don???t??force yourself to eat, especially if having cramps, vomiting, or diarrhea. ??? Water is important so you don't get dehydrated. Soup may also be good. Sports drinks may also help, especially if they are not too acidic. Don't drink sugary drinks as this can make things worse. Take liquids in small amounts. Don???t??guzzle them. ??? Caffeine sometimes makes the pain and cramping worse. ??? Don???t take??dairy products if you have vomiting or diarrhea. ??? Don't eat large amounts at a time. Eat several small meals during the day instead of 2 or 3 larger meals. Wait a few minutesbetween bites. ??? Eat a diet low in fiber (called a low-residue diet). Foods allowed include refined breads, white rice, fruit and vegetable juices without pulp, tender meats. These foods will pass more easily through the intestine. ??? Don???t have??whole-grain foods, whole fruits and vegetables,meats, seeds and nuts, fried or fatty foods, dairy, alcohol and spicy foods until your symptoms go away. ?? Follow-up care Follow up with your healthcare provider, or as advised, if your pain does not begin to improve in the next 24 hours. ?? Call 911 Call?? 911 if any of these occur: ??? Trouble breathing ??? Confusion ??? Fainting or loss of consciousness ??? Rapid heart rate ??? Seizure ?? When to seek medical advice Call your healthcare provider right away if any of these occur: ??? Pain gets worse or moves to theright lower abdomen ??? New or worsening vomiting or diarrhea ??? Swelling of the abdomen ??? Unable to pass stool for more than??3 days ??? Fever of 100.4??F (38??C) or higher, or as directed by your healthcare provider ??? Blood in vomit or bowel movements (dark red or black color) ??? Yellow color of eyes and skin (jaundice) ??? Weakness, dizziness ??? Chest, arm, back, neck, or jaw pain ??? Can't keep down medicines, liquids, or water because of too much vomiting ??? If you have a vagina: unexpected vaginal bleeding or missed period ?? Last Reviewed Date: 2021 ?? [id number] [employer]. All rights reserved. This information is not intended as a substitute for professional medical care. Always follow your healthcare professional's instructions. ?? Patient Care team information Care Team Personnel Name: Mary Pastor RN Position: [facility] RN Member Role: Primary Care Nurse Name: Junie Beck RN Position: S RN Member Role: Primary Care Nurse Name: Not on Staff, PCP Position: [facility] Physician (General Medicine) Member Role: PCP Name: Cynthia HERMAN, Yumiko Diaz Position: [facility] OB RN Member Role: Patient Care Provider Care Team Related Persons Name: DEE MOBLEY Address: [address] [address] Name: MYRA TRUONG Address: home [address] [place] [address] Name: JOSH TRUONG Address: home [address] [place] [address]
--- OUTSIDE RECORDS SUMMARY | 2024-02-13 23:19 | XMS_ITS | Continuity of Care Document ---
Author Organization [facility] ter Address [address] [place] [address]- Care Team Providers Care Instructional Resource Teacher Name Role Phone Yousif Combs MD Primary Care Physician [phone] [place] [facility] [place] - 02/22/[address] [address]- Discharge Disposition: A-D/C Home Attending Physician: Kiran Jennings MD Admitting Physician: Kiran Jennings MD Referring Physician: Not on Staff, Referring MD Allergies, Adverse Reactions, Alerts Substance Reaction Severity Status Cats Active Medications diclofenac 3% topical gel 1 application, Topically, 2 times a day, # 50 Gm, 0 Refills, Maintenance, 02/22/22 11:25:00 EDT, Gel, [facility], Partial fill upon patient request if the prescription is for a schedule II opioid drug., 1 application Topically 2 t... Start Date: 02/22/22 Stop Date: 03/01/22 Status: Ordered fluconazole 150 mg oral tablet 1 tablet = 150 mg, By Mouth, Once, epeat dose if still having symptoms in 72 hours, # 2 tablet, 0 Refills, Soft Stop, 10/04/21 16:27:00 EDT, Tablet, [facility], Partial fill upon patient request if the prescription is for a schedule II opio... Start Date: 10/04/21 Status: Ordered hydrocortisone 1% topical cream 1 application, Topically, 2 times a day, Use 1-2 times per day for 3-4 weeks until follow up appointment, # 14 Gm, 1 Refills, Maintenance, 10/04/21 16:26:00 EDT, Cream, [facility], Partialfill upon patient request if the prescription is fo... Start Date: 10/04/21 Status: Ordered lidocaine 5% topical cream 1 application, Topically, 3 times a day, for 7 days, # 30 Gm, 0 Refills, Acute 03/01/22 11:25:00 EDT, 02/22/22 11:25:00 EDT, Cream, [facility], Partial fill upon patient request if the prescription is for a schedule II opioid drug... Start Date: 02/22/22 Stop Date: 03/01/22 Status: Ordered Tylenol Extra Strength 500 mg oral tablet 1 tablet = 500 mg, By Mouth, 4 times a day, PRN for pain, for 7 days, # 50 tablet, 0 Refills, Acute03/01/22 11:25:00 EDT, 02/22/22 11:25:00 EDT, Tablet, [facility], Partial fillupon patient request if the prescription is for a s... Start Date: 02/22/22 Stop Date: 03/01/22 Status: Ordered Problem List Condition Effective Dates Status Health Status Inform ant Eczema(Confirmed) 1 Active Mixed incontinence(Confirmed) Active Low back pain(Confirmed) Active Obese class II(Confirmed) Active Breast pain, right(Confirmed) Active 1right nipple Results Radiology Reports * Exam Date Time Procedure Performing Provider Status 02/22/22 7:51 AM Tibia/Fibula 2 Views Right Temo Hernandez; Auth (Verified) Notes: (Tibia/Fibula 2 Views Right) Reason For Exam: Pain RESULT: Tibia/Fibula 2 Views Right Knee 1 or 2 Views Right, Tibia/Fibula 2 Views Right Hx of Present Illness: patient fell and hit R knee and R hinton on kitchen floor last week. Ongoing pain since; Reason: Pain; Clinical Question(s): Fracture COMPARISON: None. FINDINGS: There is no evidence of acute or healing fracture, dislocation or bone lesion. No arthritic changes. No osteochondral defects or intra-articular loose bodies. No evidence of joint effusion. No radiopaque foreign body or soft tissue gas. IMPRESSION: Normal. WSN: [id number] Ordering Physician: Jessica Grover Dictated By: Gissell Barksdale MD Dictated Date/Time: 02/22/22 8:14 am Reviewed By: Gissell Barksdale MD Signed By: Gissell Barksdale MD Signed Date/Time: 02/22/22 8:14 am Transcribed By: DEMETRICE Transcribed Date/Time: 02/22/22 8:12 am * Exam Date Time Procedure Performing Provider Status 02/22/22 7:51 AM Knee 1 or 2 Views Right Annika Hernandez ca; Auth (Verified) Notes: (Knee 1 or 2 Views Right) Reason For Exam: Pain RESULT: Knee 1 or 2 Views Right Knee 1 or 2 Views Right, Tibia/Fibula 2 Views Right Hx of Present Illness: patient fell and hit R knee and R hinton on kitchen floor last week. Ongoing pain since; Reason: Pain; Clinical Question(s): Fracture COMPARISON: None. FINDINGS: There is no evidence of acute or healing fracture, dislocation or bone lesion. No arthritic changes. No osteochondral defects or intra-articular loose bodies. No evidence of joint effusion. No radiopaque foreign body or soft tissue gas. IMPRESSION: Normal. WSN: [id number] Ordering Physician: Jesisca Grover Dictated By: Gissell Barksdale MD Dictated Date/Time: 02/22/22 8:14 am Reviewed By: Gissell Barksdale MD Signed By: Gissell Barksdale MD Signed Date/Time: 02/22/22 8:14 am Transcribed By: DEMETRICE Transcribed Date/Time: 02/22/22 8:12 am Vital Signs Most recent to oldest [Reference Range]: 1 2 3 Height 152 cm (02/22/22 1:04 PM) 152 cm (02/22/22 7:08 AM) Weight 82 kg (02/22/22 1:04 PM) 82 kg (02/22/22 7:08 AM) Oxygen Saturation [94-100 %] 99 % (02/22/22 1:04 PM) 100 % (02/22/22 11:11 AM) 99 % (02/22/22 7:08 AM) Pulse Rate [55-90 bpm] 77 bpm (02/22/22 1:04 PM) 70 bpm (02/22/22 11:11 AM) 84 bpm (02/22/22 7:08 AM) Body Mass Index [18.5-24.99] 35.49 *>HHI* (02/22/22 1:04 PM) Blood Pressure [90-138/55-84 mm Hg] 120/88mm Hg (02/22/22 1:04 PM) 131/99mm Hg (02/22/22 11:11 AM) 148/99mm Hg *H* (02/22/22 7:08 AM) Respiratory Rate [16-30 br/min] 18 br/min (02/22/22 1:04 PM) 18 br/min (02/22/22 11:11 AM) 16 br/min (02/22/22 7:08 AM) Temperature [96.8-100.4 DegF] 98.2 DegF (02/22/22 11:11 AM) 98.1 DegF (02/22/22 7:08 AM) Mode of Delivery (Oxygen) Room air (02/22/22 1:04 PM) Room air (02/22/22 11:11 AM) Room air (02/22/22 7:08 AM) Blood pressure sites Arm, left (02/22/22 1:04 PM) Arm, right (02/22/22 11:11 AM) Arm, left (02/22/22 7:08 AM) Temperature Route Oral (02/22/22 11:11 AM) Oral (02/22/22 7:08 AM) Dry Weight 82 kg (02/22/22 1:04 PM) 82 kg (02/22/22 7:08 AM) Weight Obtained Via Patient/family state d (02/22/22 7:08 AM) Dry Weight Obtained Via Patient/family s tated (02/22/22 7:08 AM) Social History Social History Type Response Smoking Status Never (less than 100 in lifetime) entered on: 07/30/20 Sex Note * [facility] , CIS S: TRANSCRIBE Shamir FORD, Devrim: VERIFY Event Display: Result: Authored Date: Knee 1 or 2 Views Right, Tibia/Fibula 2 Views Right Hx of Present Illness: patient fell and hit R knee and R hinton on kitchen floor last week. Ongoing pain since; Reason: Pain; Clinical Question(s): Fracture COMPARISON: None. FINDINGS: There is no evidence of acute or healing fracture, dislocation or bone lesion. No arthritic changes. No osteochondral defects or intra-articular loose bodies. No evidence of joint effusion. No radiopaque foreign body or soft tissue gas. IMPRESSION: Normal. WSN: [id number] Ordering Physician: Jessica Grover Dictated By: Gissell Barksdale MD Dictated Date/Time: 02/22/22 8:14 am Reviewed By: Gissell Barksdale MD Signed By: Gissell Barksdale MD Signed Date/Time: 02/22/22 8:14 am Transcribed By: DEMETRICE Transcribed Date/Time: 02/22/22 8:12 am XR Knee - right 1 or 2 Views * [facility] , CIS S: TRANSCRIBE Gissell Barksdale MD: VERIFY Event Display: Result: Authored Date: [id number] Knee 1 or 2 Views Right, Tibia/Fibula 2 Views Right Hx of Present Illness: patient fell and hit R knee and R hinton on kitchen floor last week. Ongoing pain since; Reason: Pain; Clinical Question(s): Fracture COMPARISON: None. FINDINGS: There is no evidence of acute or healing fracture, dislocation or bone lesion. No arthritic changes. No osteochondral defects or intra-articular loose bodies. No evidence of joint effusion. No radiopaque foreign body or soft tissue gas. IMPRESSION: Normal. WSN: [id number] Ordering Physician: Jessica Grover Dictated By: Gissell Barksdale MD Dictated Date/Time: 02/22/22 8:14 am Reviewed By: Gissell Barksdale MD Signed By: Gissell Barksdale MD Signed Date/Time: 02/22/22 8:14 am Transcribed By: DEMETRICE Transcribed Date/Time: 02/22/22 8:12 am Care Team Personnel Name: Yousif Combs MD Address: [address] [place] [address], [address] [place] [address]-
--- OUTSIDE RECORDS SUMMARY | 2024-02-13 23:19 | XMS_ITS | Continuity of Care Document ---
Author Organization [facility] e Medicine Address [address] [facility], 4t [address] [place] [address]- Care Team Providers Care Embossograph Operator Name Role Phone Garret FORD, Yousif Salinas Primary Care Physician Encounter [facility] [place] Date(s): 05/31/22 - 08/26/22 [facility] [address], 4[address] [place] [address]- Attending Physician: Maddy Gale MD Referring Physician: Not on Staff, Referring MD Allergies, Adverse Reactions, Alerts Substance Reaction Severity Status Cats Active Medications diclofenac 3% topical gel 1 application, Topically, 2 times a day, # 50 Gm, 0 Refills, Maintenance, 02/22/22 11:25:00 EDT, Gel, [facility], Partial fill upon patient request if the prescription is for a schedule II opioid drug., 1 application Topically 2 t... Start Date: 02/22/22 Stop Date: 03/01/22 Status: Ordered Diflucan 150 mg oral tablet 1 tablet = 150 mg, By Mouth, Once, # 1 tablet, 0 Refills, Soft Stop, 04/30/22 12:37:00 EST, [facility], Partial fill upon patient request if the prescription is for a schedule II opioid drug., 153, cm, 04/27/22 18:27:00 EST, Height,... Start Date: 04/30/22 Status: Ordered hydrocortisone 1% topical cream 1 application, Topically, 2 times a day, Use 1-2 times per day for 3-4 weeks until follow up appointment, # 14 Gm, 1 Refills, Maintenance, 10/04/21 16:26:00 EDT, Cream, [facility], Partialfill upon patient request if the prescription is fo... Start Date: 10/04/21 Status: Ordered ibuprofen 600 mg oral tablet 600 mg, 1, tablet, By Mouth, Every 6 hours, # 50 tablet, Refills 0, Tot. Refills 0, Maintenance, 04/27/22 22:55:00 EST, [id number] fill upon patientrequest if the prescription is for a schedule II op... Start Date: 04/27/22 Status: Ordered lidocaine 5% topical film 1 patch, Topically, Daily, PRN Pain , Mild, remove after 12 hours, # 13 each, 0 Refills, Maintenance, 04/27/22 22:48:00 EST, [facility], Partial fill upon patient request if the prescription is for a schedule II opioid drug., 1 patch... Start Date: 04/27/22 Status: Ordered Tylenol 325 mg oral capsule 3 capsule = 975 mg, By Mouth, Every 6 hours, PRN as needed for fever, # 60 capsule, 0 Refills, Maintenance, 04/27/22 22:55:00 EST, Capsule, [facility] #[id number], Partial fill upon patient request if the prescription is for a schedule II opioid drug., 15... Start Date: 04/27/22 Status: Ordered Problem List [...] Team Personnel Name: Mary Pastor RN Position: [facility] RN Member Role: Primary Care Nurse Name: Junie Beck RN Position: S RN Member Role: Primary Care Nurse Name: Yousif Combs MD Position: [facility] Physician (General Medicine) Member Role: PCP Address: Address: [address] [place] [address], [facility] [address] [facility] [place] [address]- Care Team Related Persons Name: DEE MOBLEY Address: home [address] [place] [address] Name: MYRA TRUONG Address: home [address] [place] [address] Name: JOSH TRUONG Address: home [address] [place] [address]
--- OUTSIDE RECORDS SUMMARY | 2024-02-13 23:19 | XMS_ITS | Continuity of Care Document ---
Author Organization [facility] e Medicine Address [address] [facility], 4t h [address] [place] [address]- Care Team Providers Care Hot Car Operator Name Role Phone Garret FORD, Yousif Salinas Primary Care Physician [phone] Encounter [facility] [place] Date(s): 03/05/23 - 04/04/23 [facility] [address] [facility], 4th [address] [place] [id number] All[facility]ies, Adverse Reactions, Alerts No Known Medication Allergies Substance Reaction Severity Status Cats Active Medications diclofenac 3% topical gel 1 application, Topically, 2 times a day, # 50 Gm, 0 Refills, Maintenance, 02/22/22 11:25:00 EDT, Gel, [facility], Partial fill upon [...] Team Personnel Name: Mary Pastor RN Position: [facility] RN Member Role: Primary Care Nurse Name: Junie Beck RN Position: S RN Member Role: Primary Care Nurse Name: Yousif Combs MD Position: [facility] Physician - Primary Care Member Role: PCP Address: Address: [address] [place] [address], [address] [place] [address]- Care Team Related Persons Name: DEE MOBLEY Address: home [address] [place] [address] Name: MYRA TRUONG Address: home [address] [place] [address] Name: JOSH TRUONG Address: home [address] [place] [address]
--- OUTSIDE RECORDS SUMMARY | 2024-02-13 23:19 | XMS_ITS | Continuity of Care Document ---
Author Organization [facility] e Medicine Address [address] [facility], 4t [address] [place] [address]- Care Team Providers Care Linux Vmware Administrator Name Role Phone Not on Staff, PCP Primary Care Physician Unavail able Encounter [facility] [place] Date(s): 03/12/23 - 04/18/23 [facility] [address] [place], [address]th [address] [place] [address]- Attending Physician: Maddy Gale MD Referring Physician: Regina Frost MD Allergies, Adverse Reactions, Alerts No Known Medication Allergies Substance Reaction Severity Status Cats Active Medications diclofenac 3% topical gel 1 application, Topically, 2 times a day, # 50 Gm, 0 Refills, Maintenance, 02/22/22 11:25:00 EDT, [facility], Partial fill upon patient [...] tablet, 0 Refills, Maintenance, 03/12/23 13:53:00 EDT, [facility], Partial fill upon patient request if the [...] Team Personnel Name: Mary Pastor RN Position: [facility] RN Member Role: Primary Care Nurse Name: Junie Beck RN Position: [facility] ED RN W/OE and Tasks Member Role: Primary Care Nurse Name: Not on Staff, PCP Position: [facility] Physician (General Medicine) Member Role: PCP Care Team Related Persons Name: AKASHPieroDEE Address: [address] [address] Name: MYRA TRUONG Address: home [address] [place] [address] Name: JOSH TRUONG Address: [address] [address]
--- OUTSIDE RECORDS SUMMARY | 2024-02-13 23:19 | XMS_ITS | Continuity of Care Document ---
Author Organization [facility] Address [address] [place] [address]- Care Team Providers Care Foam Rubber Curer Name Role Phone Garret FORD, Yousif Salinas Primary Care Physician Encounter [facility] [place] Date(s): 05/04/21 - 06/03/[address] [address]- Attending Physician: Willy Taylor Admitting Physician: Willy Taylor Referring Physician: AdmtrWilly Allergies, Adverse Reactions, Alerts Substance Reaction Severity Status Cats Active Medications fluconazole 150 mg oral tablet 1 tablet = 150 mg, By Mouth, Once, Repeat dose if still having symptoms in 72 hours, # 2 tablet, 0 Refills, Soft Stop, 07/30/20 13:50:00 EST, Tablet, [facility], Partial fill upon patient request if the prescription is for a sched... Start Date: 07/30/20 Status: Ordered Probiotic Formula By Mouth, Daily, 0 Refills, Maintenance, 08/16/20 9:23:00 EST, Partial fill upon patient request ifthe prescription is for a schedule II opioid drug. Start Date: 08/16/20 Status: Ordered Vitamin D 04008 iu oral capsule 50,000 International_Units, By Mouth, [...]
--- OUTSIDE RECORDS SUMMARY | 2024-02-13 23:19 | XMS_ITS | Continuity of Care Document ---
Author Organization [facility] Address [address] [place] [address]- Care Team Providers Care Nursing Home Physician Name Role Phone Garret FORD, Yousif Salinas Primary Care Physician [place] [facility] [place](s[place] 06/22/22 - 07/22/[address] [address]- Allergies, Adverse Reactions, Alerts Substance Reaction Severity Status Cats Active Medications diclofenac 3% topical gel 1 application, Topically, 2 times a day, # 50 Gm, 0 Refills, Maintenance, 02/22/22 11:25:00 EDT, Gel, [facility], Partial fill upon patient request if the prescription is for a schedule II opioid drug., 1 application Topically 2 t... Start Date: 02/22/22 Stop Date: 03/01/22 Status: Ordered Diflucan 150 mg oral tablet 1 tablet = 150 mg, By Mouth, Once, # 1 tablet, 0 Refills, Soft Stop, 04/30/22 12:37:00 EST, Tablet,[facility], Partial fill upon patient request if the prescription is for a schedule II opioid drug., 153, cm, 04/27/22 18:27:00 EST, Height,... Start Date: 04/30/22 Status: Ordered hydrocortisone 1% topical cream 1 application, Topically, 2 times a day, Use 1-2 times per day for 3-4 weeks until follow up appointment, # 14 Gm, 1 Refills, Maintenance, 10/04/21 16:26:00 EDT, Cream, [facility], Partialfill upon patient request if the prescription is fo... Start Date: 10/04/21 Status: Ordered ibuprofen 600 mg oral tablet 600 mg, 1, tablet, By Mouth, Every 6 hours, # 50 tablet, Refills 0, Tot. Refills 0, Maintenance, 04/27/22 22:55:00 EST, [id number] fill upon patientrequest if the prescription is for a schedule II op... Start Date: 04/27/22 Status: Ordered lidocaine 5% topical film 1 patch, Topically, Daily, PRN Pain , Mild, remove after 12 hours, # 13 each, 0 Refills, Maintenance, 04/27/22 22:48:00 EST, Film, [facility], Partial fill upon patient request if the prescription is for a schedule II opioid drug., 1 patch... Start Date: 04/27/22 Status: Ordered Tylenol 325 mg oral capsule 3 capsule = 975 mg, By Mouth, Every 6 hours, PRN as needed for fever, # 60 capsule, 0 Refills, Maintenance, 04/27/22 22:55:00 EST, Capsule, [id number], Partial fill upon patient request if [...] Team Personnel Name: Mary Pastor RN Position: [facility] RN Member Role: Primary Care Nurse Name: Junie Beck RN Position: [facility] ED RN W/OE and Tasks Member Role: Primary Care Nurse Name: Yousif Combs MD Position: [facility] Physician (General Medicine) Member Role: PCP Address: Address: [address] [place] [address], [facility] [place] [address]- Care Team Related Persons Name: DEE MOBLEY Address: home [address] [place] [address] [place] [address] Name: MYRA TRUONG Address: home [address] [place] [address] Name: JOSH TRUONG Address: [address] [address]
--- OUTSIDE RECORDS SUMMARY | 2024-02-13 23:19 | XMS_ITS | Continuity of Care Document ---
Author Organization [facility] Address [address] [place] [address]- Care Team Providers Care Die Grinder Name Role Phone Not on Staff, PCP Primary Care Physician Unavail able [place] [facility] [place] - 04/13/[address] [address]- Attending Physician: Willy Taylor Admitting Physician: Willy Taylor Referring Physician: Willy Taylor Allergies, Adverse Reactions, Alerts No Known Medication Allergies Substance Reaction Severity Status Cats Active Medications diclofenac 3% topical gel 1 application, Topically, 2 times a day, # 50 Gm, 0 Refills, Maintenance, 02/22/22 11:25:00 EDT, [facility], Partial fill upon patient [...] tablet, 0 Refills, Maintenance, 03/12/23 13:53:00 EDT, [id number], Partial fill upon patient [...] Team Personnel Name: Mary Pastor RN Position: [facility] RN Member Role: Primary Care Nurse Name: Junie Beck RN Position: [facility] ED RN W/OE and Tasks Member Role: Primary Care Nurse Name: Not on Staff, PCP Position: [facility] Physician (General Medicine) Member Role: PCP Care Team Related Persons Name: DEE MOBLEY Address: home [address] [place] [address] Name: MYRA TRUONG Address: home [address] [place] [address] Name: JOSH TRUONG Address: home [address] [place] [address]
--- OUTSIDE RECORDS SUMMARY | 2024-02-13 23:19 | XMS_ITS | Continuity of Care Document ---
Author Organization [facility] Address [address] [place] [address]- Care Team Providers Care Cake Tester Name Role Phone Garret FORD, Yousif Salinas Primary Care Physician Encounter [facility] [place] Date(s): 07/25/21 - 08/24/[address] [address]- Allergies, Adverse Reactions, Alerts Substance Reaction Severity Status Cats Active Medications Diflucan 150 mg oral tablet See Instructions, Take 1 tablet today, then if symptoms persist take another tablet in 72 hours after first was taken., # 2 tablet, 0 Refills, Soft Stop, 07/08/21 15:21:00 EST, Tablet, [facility], Partial fill upon patient request... Start Date: 07/08/21 Status: Ordered fluconazole 150 mg oral tablet 1 tablet = 150 mg, By Mouth, Once, Repeat dose if still having symptoms in 72 hours, # 2 tablet, 0 Refills, Soft Stop, 07/30/20 13:50:00 EST, Tablet, [facility], Partial fill upon patient request if the prescription is for a sched... Start Date: 07/30/20 Status: Ordered hydrocortisone 1% topical cream 1 application, Topically, 2 times a day, Use 1-2 times per day for 3-4 weeks until follow up appointment, # 14 Gm, 1 Refills, Maintenance, 07/07/21 14:28:00 EST, Cream, [facility], Partial fill upon [...] 07/07/21 14:24:00 EST, Route to Pharmacy Electronically, [facility], Partial fill upon patient request if the pr... Start Date: 07/07/21 Stop Date: 01/03/22 Status: Ordered Vitamin D 01287 iu oral capsule 50,000 International_Units, By Mouth, [...]
--- OUTSIDE RECORDS SUMMARY | 2024-02-13 23:19 | XMS_ITS | Continuity of Care Document ---
Author Organization [facility] Address [address] [place] [address]- Care Team Providers Care Motion Picture Camera Lens Technician Name Role Phone Yousif Combs MD Primary Care Physician En[place] [facility] [place] Date(s): 09/10/20 - 09/21/[address] [address]- Discharge Disposition: A-D/C Home Attending Physician: Haylee Weber MD Admitting Physician: Haylee Weber MD Referring Physician: Haylee Weber MD Allergies, Adverse Reactions, Alerts Substance Reaction Severity Status Cats Active Medications Diflucan 150 mg oral tablet 1 tablet = 150 mg, By Mouth, Every week, One pill once per week for 6 months, # 4 tablet, 5 Refills, Acute 01/16/21 8:00:00 EDT, 08/06/20 16:42:00 EST, Tablet, [facility], Partial fill upon patient request if the prescription is f... Start Date: 08/06/20 Stop Date: 01/16/21 Status: Ordered fluconazole 150 mg oral tablet 1 tablet = 150 mg, By Mouth, Once, Repeat dose if still having symptoms in 72 hours, # 2 tablet, 0 Refills, Soft Stop, 07/30/20 13:50:00 EST, Tablet, [facility], Partial fill upon patient request if the prescription is for a sched... Start Date: 07/30/20 Status: Ordered Probiotic Formula By Mouth, Daily, 0 Refills, Maintenance, 08/16/20 9:23:00 EST, Partial fill upon patient request ifthe prescription is for a schedule II opioid drug. Start Date: 08/16/20 Status: Ordered Vitamin D 20658 iu oral capsule 50,000 International_Units, By Mouth, [...]
--- OUTSIDE RECORDS SUMMARY | 2024-02-13 23:19 | XMS_ITS | Continuity of Care Document ---
Author Organization [facility] Address [address] [place] [address]- Care Team Providers Care Assembler Fluorescent Lights Name Role Phone Not on Staff, PCP Primary Care Physician Unavail able Encounter [facility] [place] Date(s): 12/12/23 - 01/13/[address] [address]- Attending Physician: Not on Staff, Attending MD [...] 10/03/23 3:01:00 EDT, Route to Pharmacy Electronically, [facility], Partial fill upon patient request if the prescription is for a sc... Start Date: 10/03/23 Status: Ordered Tylenol 325 mg oral tablet 975 mg, 3, tablet, By Mouth, Every 8 hours, PRN, # 30 tablet, Refills 0, Tot. Refills 0, Maintenance, for pain, 10/03/23 3:01:00 EDT, Route to Pharmacy Electronically, [facility], Partial fill upon patient request if [...] Team Personnel Name: Mary Pastor RN Position: [facility] RN Member Role: Primary Care Nurse Name: Junie Beck RN Position: [facility] RN Member Role: Primary Care Nurse Name: Not on Staff, PCP Position: [facility] Physician (General Medicine) Member Role: PCP Care Team Related Persons Name: DEE MOBLEY Address: [address] [address] Name: MYRA TRUONG Address: home [address] [place] [address] Name: JOSH TRUONG Address: [address] [address]
--- OUTSIDE RECORDS SUMMARY | 2024-02-13 23:19 | XMS_ITS | Continuity of Care Document ---
Author Organization [facility] Address [address] [place] [address]- Care Team Providers Care Bailing Machine Operator Name Role Phone Garret FORD, Yousif Salinas Primary Care Physician [place] [facility] [place] - 03/19/[address] [address]- Allergies, Adverse Reactions, Alerts Substance Reaction Severity Status Cats Active Medications fluconazole 150 mg oral tablet 1 tablet = 150 mg, By Mouth, Once, Repeat dose if still having symptoms in 72 hours, # 2 tablet, 0 Refills, Soft Stop, 07/30/20 13:50:00 EST, Tablet, [facility], Partial fill upon patient request if [...] for 3 days, # 6 tablet, Refills 0, Tot. Refills 0, Acute 03/22/21 13:52:00 EDT, 03/19/21 13:52:00 EDT, Route to Pharmacy Electronically, [id number], Partial fill upon patient request if the prescr... Start Date: 03/19/21 Stop Date: 03/22/21 Status: Ordered Vitamin D 79280 iu oral capsule 50,000 International_Units, By Mouth, [...]
--- OUTSIDE RECORDS SUMMARY | 2024-02-13 23:19 | XMS_ITS | Continuity of Care Document ---
Author Organization [facility] Address [address] [place] [address]- Care Team Providers Care Charge Account Identification Clerk Name Role Phone Garret FORD, Yousif Salinas Primary Care Physician [place] [facility] [place](s[place] 04/28/21 - 06/03/[address] [address]- Attending Physician: Ann Marie Dow MD Admitting Physician: Ann Marie Dow MD Referring Physician: Ann Marie Dow MD Allergies, Adverse Reactions, Alerts Substance Reaction Severity Status Cats Active Medications fluconazole 150 mg oral tablet 1 tablet = 150 mg, By Mouth, Once, Repeat dose if still having symptoms in 72 hours, # 2 tablet, 0 Refills, Soft Stop, 07/30/20 13:50:00 EST, Tablet, [facility], Partial fill upon patient request if the prescription is for a sched... Start Date: 07/30/20 Status: Ordered Probiotic Formula By Mouth, Daily, 0 Refills, Maintenance, 08/16/20 9:23:00 EST, Partial fill upon patient request ifthe prescription is for a schedule II opioid drug. Start Date: 08/16/20 Status: Ordered Vitamin D 30383 iu oral capsule 50,000 International_Units, By Mouth, [...]
--- OUTSIDE RECORDS SUMMARY | 2024-02-13 23:19 | XMS_ITS | Continuity of Care Document ---
Author Organization [facility] Address [address], [address] [place] [address]- Care Team Providers Care Bread Dumper Name Role Phone Not on Staff, PCP Primary Care Physician Unavail able Encounter [facility] [place] Date(s): 10/05/23 - 11/04/23 [facility] [address], [address] [place] [address]- Allergies, Adverse Reactions, Alerts No Known Medication [...] 10/03/23 3:01:00 EDT, Route to Pharmacy Electronically, [facility], Partial fill upon patient request if the prescription is for a sc... Start Date: 10/03/23 Status: Ordered Tylenol 325 mg oral tablet 975 mg, 3, tablet, By Mouth, Every 8 hours, PRN, # 30 tablet, Refills 0, Tot. Refills 0, Maintenance, for pain, 10/03/23 3:01:00 EDT, Route to Pharmacy Electronically, [facility], Partial fill upon patient [...] Team Personnel Name: Mary Pastor RN Position: [facility] RN Member Role: Primary Care Nurse Name: Junie Beck RN Position: [facility] RN Member Role: Primary Care Nurse Name: Not on Staff, PCP Position: [facility] Physician (General Medicine) Member Role: PCP Care Team Related Persons Name: DEE MOBLEY Address: [address] [address] Name: MYRA TRUONG Address: home [address] [place] [address] Name: JOSH TRUONG Address: [address] [address]
--- OUTSIDE RECORDS SUMMARY | 2024-02-13 23:19 | XMS_ITS | Continuity of Care Document ---
Author Organization [facility] Address [address] [place] [address]- Care Team Providers Care Glass Cutting Machine Feeder Name Role Phone Garret FORD, Yousif Salinas Primary Care Physician [phone] [place] [facility] [place] 06/01/21 [facility] [address] [address]- Attending Physician: Not on Staff, Attending MD [...] Start Date: 08/16/20 Status: Ordered Vitamin D 25060 iu oral capsule 50,000 International_Units, By Mouth, [...]
--- OUTSIDE RECORDS SUMMARY | 2024-02-13 23:19 | XMS_ITS | Continuity of Care Document ---
Author Organization [facility] Address [address] [place] [address]- Care Team Providers Care Court Supervisor Name Role Phone Garret FORD, Yousif Salinas Primary Care Physician [place] [facility] [place](s): 06/02/22 - 07/02/[address] [address]- Attending Physician: Willy Taylor Admitting Physician: Willy Taylor Referring Physician: Wlily Taylor Allergies, Adverse Reactions, Alerts Substance Reaction Severity Status Cats Active Medications diclofenac 3% topical gel 1 application, Topically, 2 times a day, # 50 Gm, 0 Refills, Maintenance, 02/22/22 11:25:00 EDT, Gel, [facility], Partial fill upon patient request if the prescription is for a schedule II opioid drug., 1 application Topically 2 t... Start Date: 02/22/22 Stop Date: 03/01/22 Status: Ordered Diflucan 150 mg oral tablet 1 tablet = 150 mg, By Mouth, Once, # 1 tablet, 0 Refills, Soft Stop, 04/30/22 12:37:00 EST, Tablet,[facility], Partial fill upon patient request if the prescription is for a schedule II opioid drug., 153, cm, 04/27/22 18:27:00 EST, Height,... Start Date: 04/30/22 Status: Ordered hydrocortisone 1% topical cream 1 application, Topically, 2 times a day, Use 1-2 times per day for 3-4 weeks until follow up appointment, # 14 Gm, 1 Refills, Maintenance, 10/04/21 16:26:00 EDT, Cream, [facility], Partialfill upon patient request if the prescription is fo... Start Date: 10/04/21 Status: Ordered ibuprofen 600 mg oral tablet 600 mg, 1, tablet, By Mouth, Every 6 hours, # 50 tablet, Refills 0, Tot. Refills 0, Maintenance, 04/27/22 22:55:00 EST, [id number] fill upon patientrequest if the prescription is for a schedule II op... Start Date: 04/27/22 Status: Ordered lidocaine 5% topical film 1 patch, Topically, Daily, PRN Pain , Mild, remove after 12 hours, # 13 each, 0 Refills, Maintenance, 04/27/22 22:48:00 EST, [facility], Partial fill upon patient request if the prescription is for a schedule II opioid drug., 1 patch... Start Date: 04/27/22 Status: Ordered Tylenol 325 mg oral capsule 3 capsule = 975 mg, By Mouth, Every 6 hours, PRN as needed for fever, # 60 capsule, 0 Refills, Maintenance, 04/27/22 22:55:00 EST, [facility]apsule, [id number], Partial fill upon patient request if [...] RN Position: [facility] RN Member Role: Primary Care Nurse Name: Junie Beck RN Position: [facility] RN Member Role: Primary Care Nurse Name: Yousif Combs MD Position: [facility] Physician (General Medicine) Member Role: PCP Address: Address: [address] [place] [address], [address] [facility] [place] [address]- Care Team Related Persons Name: DEE MOBLEY Address: home [address] [place] [address] Name: MYRA TRUONG Address: home [address] [place] [address] Name: JOSH TRUONG Address: home [address] [place] [address]
--- OUTSIDE RECORDS SUMMARY | 2024-02-13 23:19 | XMS_ITS | Continuity of Care Document ---
Author Organization [facility] Address [address] [place] [address]- Care Team Providers Care Building Economist Name Role Phone Yousif Combs MD Primary Care Physician En[place] [facility] [place] Date(s): 10/14/20 - 11/19/[address] [address] Attending Physician: Yousif Combs MD Admitting Physician: Yousif Combs MD Allergies, Adverse Reactions, Alerts Substance Reaction Severity Status Cats Active Medications Diflucan 150 mg oral tablet 1 tablet = 150 mg, By Mouth, Every week, One pill once per week for 6 months, # 4 tablet, 5 Refills, Acute 01/16/21 8:00:00 EDT, 08/06/20 16:42:00 EST, Tablet, [facility], Partial fill upon patient request if the prescription is f... Start Date: 08/06/20 Stop Date: 01/16/21 Status: Ordered fluconazole 150 mg oral tablet 1 tablet = 150 mg, By Mouth, Once, Repeat dose if still having symptoms in 72 hours, # 2 tablet, 0 Refills, Soft Stop, 07/30/20 13:50:00 EST, Tablet, [facility], Partial fill upon patient request if the prescription is for a sched... Start Date: 07/30/20 Status: Ordered Probiotic Formula By Mouth, Daily, 0 Refills, Maintenance, 08/16/20 9:23:00 EST, Partial fill upon patient request ifthe prescription is for a schedule II opioid drug. Start Date: 08/16/20 Status: Ordered Vitamin D 51133 iu oral capsule 50,000 International_Units, By Mouth, [...]
--- OUTSIDE RECORDS SUMMARY | 2024-02-13 23:19 | XMS_ITS | Continuity of Care Document ---
Author Organization [facility] Address [address] [place] [address]- Care Team Providers Care Property Economist Name Role Phone Garret FORD, Yousif Salinas Primary Care Physician Encounter [facility] Date(s): 08/04/20 - 09/03/[address] [address]- Allergies, Adverse Reactions, Alerts Substance Reaction Severity Status Cats Active Medications Diflucan 150 mg oral tablet 1 tablet = 150 mg, By Mouth, Every week, One pill once per week for 6 months, # 4 tablet, 5 Refills, Acute 01/16/21 8:00:00 EDT, 08/06/20 16:42:00 EST, Tablet, [facility], Partial fill upon patient request if the prescription is f... Start Date: 08/06/20 Stop Date: 01/16/21 Status: Ordered fluconazole 150 mg oral tablet 1 tablet = 150 mg, By Mouth, Once, Repeat dose if still having symptoms in 72 hours, # 2 tablet, 0 Refills, Soft Stop, 07/30/20 13:50:00 EST, Tablet, [facility], Partial fill upon patient request if the prescription is for a sched... Start Date: 07/30/20 Status: Ordered Probiotic Formula By Mouth, Daily, 0 Refills, Maintenance, 08/16/20 9:23:00 EST, Partial fill upon patient request ifthe prescription is for a schedule II opioid drug. Start Date: 08/16/20 Status: Ordered Vitamin D 60775 iu oral capsule 50,000 International_Units, By Mouth, [...]
--- OUTSIDE RECORDS SUMMARY | 2024-02-13 23:19 | XMS_ITS | Continuity of Care Document ---
Author Organization [facility] ter Address [address] [place] [address]- Care Team Providers Care Master [place] Name Role Phone Yousif Combs MD Primary Care Physician Encounter [facility] [place](s): 04/27/22 - 04/27/[address] [address]- Discharge Disposition: A-D/C Home Attending Physician: Elma Cadena MD Admitting Physician: Elma Cadena MD Referring Physician: Elma Cadena MD Allergies, Adverse Reactions, Alerts Substance Reaction Severity Status Cats Active Medications diclofenac 3% topical gel 1 application, Topically, 2 times a day, # 50 Gm, 0 Refills, Maintenance, 02/22/22 11:25:00 EDT, Gel, [facility], Partial fill upon patient request if the prescription is for a schedule II opioid drug., 1 application Topically 2 t... Start Date: 02/22/22 Stop Date: 03/01/22 Status: Ordered fluconazole 150 mg oral tablet 1 tablet = 150 mg, By Mouth, Once, epeat dose if still having symptoms in 72 hours, # 2 tablet, 0 Refills, Soft Stop, 10/04/21 16:27:00 EDT, Tablet, [id number], Partial fill upon patient request if the prescription is for a schedule II opio... Start Date: 10/04/21 Status: Ordered hydrocortisone 1% topical cream 1 application, Topically, 2 times a day, Use 1-2 times per day for 3-4 weeks until follow up appointment, # 14 Gm, 1 Refills, Maintenance, 10/04/21 16:26:00 EDT, Cream, [id number], Partialfill upon patient request if the prescription is fo... Start Date: 10/04/21 Status: Ordered ibuprofen 600 mg oral tablet 600 mg, 1, tablet, By Mouth, Every 6 hours, # 50 tablet, Refills 0, Tot. Refills 0, Maintenance, 04/27/22 22:55:00 EST, Route to Pharmacy Electronically, [facility]/pharmacy #[id number], Partial fill upon patientrequest if the prescription is for a schedule II op... Start Date: 04/27/22 Status: Ordered lidocaine 5% topical film 1 patch, Topically, Daily, PRN Pain , Mild, remove after 12 hours, # 13 each, 0 Refills, Maintenance, 04/27/22 22:48:00 EST, [id number], Partial fill upon patient request if the prescription is for a schedule II opioid drug., 1 patch... Start Date: 04/27/22 Status: Ordered Toradol Inj 15 mg, Injection, Intramuscular, Once, Routine, 04/27/22 22:00:00 EST, Stop date 04/27/22 22:00:00 EST Start Date: 04/27/22 Stop Date: 04/27/22 Status: Completed Tylenol 325 mg oral capsule 3 capsule = 975 mg, By Mouth, Every 6 hours, PRN as needed for fever, # 60 capsule, 0 Refills, Maintenance, 04/27/22 22:55:00 EST, Capsule, [facility]/pharmacy #[id number], Partial fill upon patient request if the prescription is for a schedule II opioid drug., 15... Start Date: 04/27/22 Status: Ordered Tylenol 325 mg oral tablet 975 mg, Tablet, By Mouth, Once, PRN for Pain , Moderate, Routine, 04/27/22 21:22:00 EST Start Date: 04/27/22 Stop Date: 04/27/22 Status: Completed Valtrex 500 mg oral tablet 500 mg, [...] Breast pain, right Confirmed Active 1right nipple Vital Signs Most recent to oldest [Reference Range]: 1 2 3 Height 153 cm (04/27/22 6:27 PM) Weight 82.3 kg (04/27/22 6:02 PM) Oxygen Saturation [94-100 %] 100 % (04/27/22 4:45 PM) Pulse Rate [55-90 bpm] 81 bpm (04/27/22 4:45 PM) Blood Pressure [90-138/55-84 mm Hg] 119/83mm Hg (04/27/22 4:45 PM) Respiratory Rate [16-30 br/min] 18 br/min (04/27/22 10:03 PM) 18 br/min (04/27/22 10:03 PM) 18 br/min (04/27/22 4:45 PM) Temperature [96.8-100.4 DegF] 98.8 DegF (04/27/22 4:45 PM) Mode of Delivery (Oxygen) Room air (04/27/22 4:45 PM) Blood pressure sites Arm, left (04/27/22 4:45 PM) Temperature Route Oral (04/27/22 4:45 PM) Weight Obtained Via Standing scale (04/27/22 6:02 PM) Social History Social History Type Response Smoking Status Never (less than 100 in lifetime) entered on: 07/30/20 Sex Note * Jessie Hermosillo RN: PERFORM Event Display: Discharge/Transfer Note Hospital Authored Date: [id number] Nursing Discharge Note Entered On: 04/27/2022 23:50 EST Performed On: 04/27/2022 23:49 EST by Jessie Hermosillo RN Nursing Discharge Note 2 Discharge Time : 04/27/2022 23:05 EST Discharge Level of Care at Discharge : Home/Long Term/Foster Care Gynecology Teacher Utilized : No AMA Form Signed : No Patient Left Unit Via : Ambulatory Patient Accompanied Off Unit with : Other: self DC Instructions Provided & Signed by Pt : Yes Patient Understands D/C Instructions : Yes Patient Instructions Discharge Signed : Yes Did Pt have Specialty Bed or Wound Vac : No Jessie Hermosillo RN - 04/27/2022 23:49 EST * Jessie Hermosillo RN: PERFORM Event Display: Patient Education/Instruction Authored Date: [id number] Inpatient Adult Discharge Instructions [address] [address] Name: CHRIS TRUONG : 1990 Visit: 04/27/2022 16:18:00 Current Date: 04/27/2022 22:37 Account: [id number] Inpatient Adult Discharge Instructions We would like [...] and their families. Surveys are administered by [employer] ?? If further treatment with your primary care physician or another doctor is recommended, it is important for you to keep the appointment. Call your primary care physician or return to the Emergency Department immediately if your condition worsens, fails to improve, or new symptoms develop. If you need to find a doctor, you can call [facility] [employer] for a referral at [phone] or toll free at [phone]) or log in to [email or web address].. ?? You can view and manage your care through the patient portal or by using a health care aleja of your choosing. Piper is a website that allows you to securely view your medical information including your hospital discharge summary, office visit summaries, medications and follow-up visits. You can also request appointments, renew medications, and request access to your medical information using a health care aleja of your choosing, or just ask a question. You can enroll at [email or web address] or register during your next office visit. You have been discharged from [facility], Patient Care Unit: WETU1. If you have any questions regarding these instructions after you leave, please call us and we will be happy to assist you. [facility] Your Care Team Attending Physician Kate-Elma Haddad MD Reason for Admission EXTREME PAIN FROM MONTHLYPERIOD Tests Performed Below is a partial list of the tests performed during your hospitalization. You may have had other tests and procedures not included in this list. Please discuss all test results with your provider. Complete Urinalysis Primary Care Provider Yousif Combs MD Advance Directive Health Care Proxy on File No No qualifying data available. Discharge Vitals Temperature: 98.8 DegF Height: 153 cm Pulse Rate: 81 bpm Weight: 82.3 kg Respiratory Rate: 18 br/min ?? Respiratory Rate: 18 br/min ?? Systolic Blood Pressure: 119 mm Hg ?? Diastolic Blood Pressure: 83 mm Hg ?? Oxygen Saturation: 100 % ?? Studies Pending All tests and labs ordered during this hospital stay have been completed unless listed below. Please discuss all pending results with your provider listed above in these instructions. ?? Chlamydia/N. Gonorrhoeae TMA (NAAT) Urine Culture Vaginosis Vaginitis Panel (BV, CV/TV) What to do next Instructions From Your Doctor Discharge Orders Scheduled Follow-Up Appointments Sunday 11:40 AM EST ?? 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 Leave message with service and a provider will call you back Where: [address] [place] [address]- Business (1) Follow Up with??[facility] When??In 1 day 04/28/2022 EST Where: [address] [facility] [address] [facility] [place] [address]- Business (1) Discharge Medications CHRIS TRUONG :1990 Visit Date:04/27/2022 Medications: Please continue your medications until treatment is completed or stopped by your provider. Medications not listed below should be discontinued. Discuss any questions related to medications with your provider. What How Much When Instructions Next Dose Unchanged Apap/ Caffeine/ Pyrilamine (Midol Maximum Strength Menstrual 500 mg-60 mg-15 mg oral tablet) 1 tab(s) Oral Every 4 hours as needed for for menstrual pain Unchanged Diclofenac Topical (diclofenac 3% topical gel) 1 aleja Topically Twice a day Duration: 7 Days Unchanged Fluconazole (fluconazole 150 mg oral tablet) 1 tab(s) Oral Once epeat dose if still having symptoms in 72 hours ?? Unchanged Hydrocortisone Topical (hydrocortisone 1% topical cream) 1 aleja Topically Twice a day Use 1-2 times per day for 3-4 weeks until follow up appointment ?? Unchanged Ibuprofen (Motrin Tablet) 800 Milligram Oral 3 times a day as needed for Pain , Mild Unchanged ValACYclovir (Valtrex 500 mg oral tablet) 1 tab(s) Oral Daily Test Results Below is a partial list of the most recent Laboratory test results done prior to this discharge. You may have had other tests and procedures not included in this list. Please discuss all test resultswith your provider. Complete Urinalysis (04/27/2022) ???Appear/Color, Urine - LIGHT YELLOW???Specific Alta, Urine - 1.025???pH, Urine - 6.0???Albumin, Urine - NEGATIVE???Glucose, Urine - NEGATIVE???Ketones, Urine - NEGATIVE???Bilirubin, Urine - NEGATIVE???Hemoglobin, Urine - 3+???Nitrite, Urine - NEGATIVE???Leukocyte, Urine - NEGATIVE???Urobilinogen - NORMAL? ?WBC's, Urine - 1 /HPF? ?RBC's, Urine - 32 /HPF? ?Squamous Epith - <1 /HPF? ?Mucus -SLIGHT Allergies (NKA means No Known Allergies) Cats Problems Active Problems??(6) Asthma?? Breast pain, right?? Eczema?? Low back pain?? Mixed incontinence?? Obese class I?? Education Materials Below is the list of Educational Leaflet Providered with your Discharge Instructions. Ibuprofen Oral Tablet?? Acetaminophen Oral Capsule?? Menstrual Pain?? Painful Menstrual Periods (Dysmenorrhea)?? Valuables and Belongings I fully understand and agree that [facility] accepts no responsibility for all my [...] Status?? Pulmonary Rehab Discharge Status?? Respiratory Rate: 18 br/min Respiratory Rate: 18 br/min ? Common Emergency Awareness Tips IS [...] are strongly encouraged to quit. Please call [employer] at [phone] or [phone] ([phone]) or log in to [email or web address] for referrals to smoking cessation programs. ?? The National Suicide Prevention Hotline is available 08/01 if you or someone you know needs to find a reason to keep living. By calling 9-559-903-Edamam (0288) you'll be connected to a skilled, trained counselor at a crisis center in your area. INPATIENT DISCHARGE INSTRUCTIONS SIGNATURE PAGE CHRIS TRUONG Location:[facility] Registration Date and Time:04/27/2022 16:18 EST Primary Care Physician: Garret FORD, Yousif Salinas, I CHRIS TRUONG, have received the above patient education materials/instructions and have verbalized understanding. If ambulance or transport services are being used I further acknowledge being given a choice of service. ?? If you need to contact me, please call me at this number: . Patient/Parcel Post Delivery Name: Patient/Parcel Post Delivery Signature: Relationship to Patient: Witness Name/Signature: Date: * Jessie Hermosillo RN: SIGN, PERFORM, SIGN, VERIFY Event Display: Patient Education Handout Authored Date: * Jessie Hermosillo RN: PERFORM Event Display: Patient Education Leaflets Authored Date: Ibuprofen Oral Tablet ?? [id number] Ibuprofen Oral Tablet Brands: Addaprin, Advil, Counteract IB, Genpril, Ibu, Ibuprohm, Ibutab, Motrin, Proprinal, Kalaheo 8, Wal-Profen Uses This medicine is used for the following purposes: ??? arthritis ??? fever ??? gout ??? pain ?? Instructions Take the medicine with 250 mL (1 cup) of water. Sit or stand upright for 10 minutes after taking the medicine. Do not lie down. You may take with food to prevent stomach upset. Keep the medicine at room temperature. Avoid heat and direct light. Drink plenty of water while on this medicine. This medicine may cause you to become more sensitive to the sun. Use sunscreen or wear protective clothing when you are exposed to the sun. Drug interactions can change how medicines work or increase risk for side effects. Tell your healthcare providers about all medicines taken. Include prescription and ojdn-pwv-fsbqaym medicines, vitamins, and herbal medicines. Speak with your doctor or pharmacist before starting or stopping any medicine. Tell your doctor if symptoms do not get better or if they get worse. Talk to your doctor before taking other medicines, including aspirins and ibuprofen containing products. Speak to your doctor about which medicines are safe to use while you are on this medicine. ?? Cautions Tell your doctor and pharmacist if you ever had an allergic reaction to a medicine. This medicine is associated with an increased risk of serious heart problems, heart attack, and stroke. Please speak with your doctor about the risks and benefits of using this medicine. Contact yourdoctor immediately if you experience chest pain or difficulty breathing. This medicine may cause serious bleeding from the stomach or bowels. Stop this medicine and call your doctor immediately if you see any signs of bleeding. Bleeding can cause pain in the stomach, vomiting up liquid that looks like coffee grounds, and red or dark tarry stools. Do not use the medication any more than instructed. Your ability to stay alert or to react quickly may be impaired by this medicine. Do not drive or operate machinery until you know how this medicine will affect you. Please check with your doctor before drinking alcohol while on this medicine. Avoid smoking while on this medicine. Smoking may increase your risk for stroke, heart attack, blood clots, high blood pressure, and other diseases of the heart and blood vessels. This medicine passes into breast milk. Ask your doctor before . This medicine can hurt a new baby in the womb. If you become while on this medicine, tell your doctor immediately. Your doctor may switch you to a different medicine. Do not share this medicine with anyone who has not been prescribed this medicine. Some patients have serious side effects from this medicine. Ask your pharmacist to show you the information from the Food and Drug Administration (FDA) and discuss it with you. ?? Side Effects The following is a list of some common side effects from this medicine. Please speak with your doctor about what you should do if you experience these or other side effects. ??? constipation or diarrhea ??? dizziness ??? excess gas ??? high blood pressure ??? nausea and vomiting ??? stomach upset or abdominal pain Call your doctor or get medical help right away if you notice any of these more serious side effects: ??? bleeding or bruising ??? chest or jaw pain ??? coughing up blood or vomit that looks like coffee grounds ??? swelling of the legs, feet, and hands ??? fever ??? swelling in the neck or throat ???signs of kidney damage (such as change in urine color or bubbly urine) ??? signs of liver damage (such as yellowing of eye or skin, dark urine, or unusual tiredness) ??? mood changes ??? ringing in the ears ??? shortness of breath ??? dark, tarry stool ??? symptoms of stroke (such as one-sided weakness, slurred speech, confusion) ??? excessive or unusual sweating ??? blurring or changes of vision??? severe or persistent vomiting ??? sudden or unexplained weight gain A few people may have an allergic reaction to this medicine. Symptoms can include difficulty breathing, skin rash, itching, swelling, or severe dizziness. If you notice any of these symptoms, seek medical help quickly. ?? Extra Please speak with your doctor, nurse, or pharmacist if you have any questions about this medicine. ?? [email or web address] IMPORTANT NOTE: This document tells you briefly how to take your medicine, but it does not tell youall there is to know about it. Your doctor or pharmacist may give you other documents about your medicine. Please talk to them if you have any questions. Always follow their advice. There is a more complete description of this medicine available in Yakut. Scan this code on your smartphone or tablet or use the web address below. You can also ask your pharmacist for a printout. If you have any questions, please ask your pharmacist. The display and use of this drug information is subject to Terms of Use. Copyright(c) 2021 [employer]. ?? [employer]. All rights reserved. This information is not intended as a substitute for professional medical care. Always follow your healthcare professional's instructions. ?? * Bay HERMAN, Jessie Miller: PERFORM Event Display: Patient Education Leaflets Authored Date: [id number] Acetaminophen Oral Capsule ?? 71176-7 Acetaminophen Oral Capsule Brands: Tylenol Uses This medicine is used for the following purposes: ??? fever ??? pain ?? Instructions This medicine may be taken with or without food. Store at room temperature away from heat, light, and moisture. Do not keep in the bathroom. Drug interactions can change how medicines work or increase risk for side effects. Tell your healthcare providers about all medicines taken. Include prescription and kxsf-puv-zeftyee medicines, vitamins, and herbal medicines. Speak with your doctor or pharmacist before starting or stopping any medicine. Tell your doctor if symptoms do not get better or if they get worse. You may stop using this medicine if you no longer have symptoms. Do not take more than 12 pills in a day. ?? Cautions Tell your doctor and pharmacist if you ever had an allergic reaction to a medicine. Do not use the medication any more than instructed. Do not drink beverages with alcohol while on this medicine. Tell the doctor or pharmacist if you are , planning to be , or . This medicine contains acetaminophen. There are many medicines with acetaminophen. Taking these medicines together can cause you to get too much acetaminophen. This can cause serious liver problems. Look carefully on the package of all your medicines to see if acetaminophen is included. Ask your pha rmacist which medicines you can take safely. ?? Side Effects If you have any of the following side effects, you may be getting too much medicine. Please contactyour doctor to let them know about these side effects. ??? signs of liver damage (such as yellowing of eye or skin, dark urine, or unusual tiredness) Call your doctor or get medical help right away if you notice any of these more serious side effects: ??? red, burning, or itchy skin This medicine usually has no side effects. A few people may have an allergic reaction to this medicine. Symptoms can include difficulty breathing, skin rash, itching, swelling, or severe dizziness. If you notice any of these symptoms, seek medical help quickly. ?? Extra Please speak with your doctor, nurse, or pharmacist if you have any questions about this medicine. ?? [email or web address] IMPORTANT NOTE: This document tells you briefly how to take your medicine, but it does not tell youall there is to know about it. Your doctor or pharmacist may give you other documents about your medicine. Please talk to them if you have any questions. Always follow their advice. There is a more complete description of this medicine available in Yakut. Scan this code on your smartphone or tablet or use the web address below. You can also ask your pharmacist for a printout. If you have any questions, please ask your pharmacist. The display and use of this drug information is subject to Terms of Use. Copyright(c) 2021 [employer] ?? [employer]. All rights reserved. This information is not intended as a substitute for professional medical care. Always follow your healthcare professional's instructions. ?? * Jessie Hermosillo RN: PERFORM Event Display: Patient Education Leaflets Authored Date: Menstrual Pain ?? Menstrual Pain - Video Menstrual pain is common in women of all ages. It's the feeling of cramps you get in your lower belly with your monthly period. Menstrual pain usually isn't a serious condition.??In this video, you'll learn how this condition develops and what you can do to minimize its effects. To view the video go to this web address: https://bit.ly/2y3s6cf Or, scan this QR code with your smart phone Last Reviewed Date: 2020 ?? [employer]. All rights reserved. This information is not intended as a substitute for professional medical care. Always follow your healthcare professional's instructions. ?? Patient Care team information Care Team Personnel Name: Mary Pastor RN Position: [facility] RN Member Role: Primary Care Nurse Name: Junie Beck RN Position: [facility] RN Member Role: Primary Care Nurse Name: Yousif Combs MD Position: [facility] Physician (General Medicine) Member Role: PCP Address: Address: [address] [place] [address], [address] [place] [address]- Care Team Related Persons Name: DEE MOBLEY Address: [address] [address] Name: MYRA TRUONG Address: home [address] [place], [place] [id number] Name: JOSH TRUONG Address: [place] [address]
--- OUTSIDE RECORDS SUMMARY | 2024-02-13 23:19 | XMS_ITS | Continuity of Care Document ---
Author Organization [facility] Address [address] [place] [address]- Care Team Providers Care Vaccinator Name Role Phone Garret FORD, Yousif Salinas Primary Care Physician Encounter [facility] Date(s): 11/29/20 - 12/29/[address] [address]- Attending Physician: Willy Taylor Admitting Physician: Willy Taylor Referring Physician: Willy Taylor Allergies, Adverse Reactions, Alerts Substance Reaction Severity Status Cats Active Medications Diflucan 150 mg oral tablet 1 tablet = 150 mg, By Mouth, Every week, One pill once per week for 6 months, # 4 tablet, 5 Refills, Acute 01/16/21 8:00:00 EDT, 08/06/20 16:42:00 EST, Tablet, [facility], [...] Start Date: 08/16/20 Status: Ordered Vitamin D 58768 iu oral capsule 50,000 International_Units, By Mouth, [...]
--- OUTSIDE RECORDS SUMMARY | 2024-02-13 23:19 | XMS_ITS | Continuity of Care Document ---
Author Organization [facility] Address [address] [place] [address]- Care Team Providers Care Natural Gas Technician Name Role Phone Not on Staff, PCP Primary Care Physician Unavail able Encounter [facility] Date(s): 10/12/23 - 11/11/[address] [address]- Allergies, Adverse Reactions, Alerts No Known Medication [...] 10/03/23 3:01:00 EDT, Route to Pharmacy Electronically, [facility], Partial fill upon patient request if the prescription is for a sc... Start Date: 10/03/23 Status: Ordered Tylenol 325 mg oral tablet 975 mg, 3, tablet, By Mouth, Every 8 hours, PRN, # 30 tablet, Refills 0, Tot. Refills 0, Maintenance, for pain, 10/03/23 3:01:00 EDT, Route to Pharmacy Electronically, [facility], Partial [...] Name: Mary Pastor RN Position: [facility] RN Member Role: Primary Care Nurse Name: Junie Beck RN Position: [facility] RN Member Role: Primary Care Nurse Name: Not on Staff, PCP Position: [facility] Physician (General Medicine) Member Role: PCP Care Team Related Persons Name: DEE MOBLEY Address: home [address] [place] [address] Name: MYRA TRUONG Address: home [address] [place] [address] Name: JOSH TRUONG Address: [address] [address]
--- OUTSIDE RECORDS SUMMARY | 2024-02-13 23:19 | XMS_ITS | Continuity of Care Document ---
Author Organization [facility] Address [address] [place] [address]- Care Team Providers Care Backup Administrator Name Role Phone Garret FORD, Yousif Salinas Primary Care Physician Encounter [facility] Date(s): 10/20/21 - 11/23/[address] [address] Attending Physician: Not on Staff, Attending MD Allergies, Adverse Reactions, Alerts Substance Reaction Severity Status Cats Active Medications fluconazole 150 mg oral tablet 1 tablet = 150 mg, By Mouth, Once, epeat dose if still having symptoms in 72 hours, # 2 tablet, 0 Refills, Soft Stop, 10/04/21 16:27:00 EDT, Tablet, [facility], Partial fill upon patient request if the prescription is for a schedule II opio... Start Date: 10/04/21 Status: Ordered hydrocortisone 1% topical cream 1 application, Topically, 2 times a day, Use 1-2 times per day for 3-4 weeks until follow up appointment, # 14 Gm, 1 Refills, Maintenance, 10/04/21 16:26:00 EDT, Cream, [facility], Partialfill upon patient request if the prescription is fo... Start Date: 10/04/21 Status: Ordered Valtrex 500 mg oral tablet 500 mg, 1, tablet, By Mouth, Daily, for 90 days, # 90 tablet, Refills 1, Tot. Refills 1, Acute 01/03/22 14:24:00 EDT, 07/07/21 14:24:00 EST, Route to Pharmacy Electronically, [facility], Partial fill upon patient request if [...]
--- OUTSIDE RECORDS SUMMARY | 2024-02-13 23:19 | XMS_ITS | Continuity of Care Document ---
Author Organization [facility] Address [address] [place] [address]- Care Team Providers Care Implementation Technician Name Role Phone Not on Staff, PCP Primary Care Physician Unavail able Encounter [facility] Date(s): 05/17/23 - 06/16/[address] [address]- Attending Physician: Sarah Yan CNM Admitting Physician: Sarah Yan CNM Referring Physician: Regina Frost MD Allergies, Adverse Reactions, Alerts No Known Medication Allergies Substance Reaction Severity Status Cats Active Medications diclofenac 3% topical gel 1 application, Topically, 2 times a day, # 50 Gm, 0 Refills, Maintenance, 02/22/22 11:25:00 EDT, Gel, [facility], Partial fill upon patient request [...] tablet, 0 Refills, Maintenance, 05/09/23 15:08:00 EST, [id number], Partial fill upon patient request if the prescription is for a rylan... Start Date: 05/09/23 Status: Ordered Valtrex 500 mg oral tablet 500 mg, 1, tablet, By Mouth, 2 times a day, for 3 days, # 6 tablet, Refills 3, Tot. Refills 3, Acute 06/26/23 14:24:00 EST, 06/14/23 14:24:00 EST, Route to Pharmacy Electronically, [facility], Partial fill upon patient request [...] Team Personnel Name: Mary Pastor RN Position: [facility] RN Member Role: Primary Care Nurse Name: Junie Beck RN Position: [facility] ED RN W/OE and Tasks Member Role: Primary Care Nurse Name: Not on Staff, PCP Position: [facility] Physician (General Medicine) Member Role: PCP Care Team Related Persons Name: DEE MOBLEY Address: [address] [address] Name: MYRA TRUONG Address: home [address] [place] [address] Name: JOSH TRUONG Address: home [address] [place] [address]
--- OUTSIDE RECORDS SUMMARY | 2024-02-13 23:19 | XMS_ITS | Continuity of Care Document ---
Author Organization [facility] Address [address] [place] [address]- Care Team Providers Care Pit Shoveler Name Role Phone Not on Staff, PCP Primary Care Physician Unavail able Encounter [facility] Date(s): 02/27/23 - 02/27/[address] [address]- Discharge Disposition: A-D/C Home Attending Physician: Ernesto Frye MD Admitting Physician: Ernesto Frye MD Referring Physician: Not on Staff, Referring MD Allergies, Adverse Reactions, Alerts No Known Medication Allergies Substance Reaction Severity Status Cats Active Medications cyclobenzaprine 10 mg oral tablet 10 mg, 1, tablet, By Mouth, 3 times a day, PRN, # 30 tablet, Refills 0, Tot. Refills 0, Acute 03/05/23 14:18:00 EDT, for spasm, 02/27/23 14:18:00 EDT, Route to Pharmacy Electronically, [id number], Partial fill upon patient request if the pr... Start Date: 02/27/23 Stop Date: 03/05/23 Status: Ordered diclofenac 3% topical gel 1 application, Topically, 2 times a day, # 50 Gm, 0 Refills, Maintenance, 02/22/22 11:25:00 EDT, Gel, [facility], Partial fill upon patient request if the prescription is for a schedule II opioid drug., 1 application Topically 2 t... Start Date: 02/22/22 Stop Date: 03/01/22 Status: Ordered hydrocortisone 1% topical cream 1 application, Topically, 2 times a day, Use 1-2 times per day for 3-4 weeks until follow up appointment, # 14 Gm, 1 Refills, Maintenance, 10/04/21 16:26:00 EDT, Cream, [facility], Partialfill upon patient request if the prescription is fo... Start Date: 10/04/21 Status: Ordered lidocaine 5% topical film 1 patch, Topically, Daily, PRN Pain , Mild, remove after 12 hours, # 13 each, 0 Refills, Acute 03/05/23 14:18:00 EDT, 02/27/23 14:18:00 EDT, Film, [facility], Partial fill upon patient request if the prescription is for a schedule II opioid... Start Date: 02/27/23 Stop Date: 03/05/23 Status: Ordered lidocaine 5% topical film 1 patch, Topically, Daily, PRN Pain , Mild, remove after 12 hours, # 13 each, 0 Refills, Maintenance, 04/27/22 22:48:00 EST, [facility], Partial fill upon patient request if the prescription is for a schedule II opioid drug., 1 patch... Start Date: 04/27/22 Status: Ordered Valtrex 500 mg oral tablet See Instructions, 1 tablet By Mouth PRN, Refills 0, Maintenance, 01/02/23 11:02:00 EDT, Instructions Replace Required Details, Partial fill upon patient request if the prescription is for a schedule II opioid drug. Start Date: 01/02/23 Status: Ordered Problem List Condition Confirmation Course Effective Dates Status Health St [facility]us Informant Asthma Confirmed Active Chronic constipation Confirmed Active Eczema 1 Confirmed Active Mixed incontinence Confirmed Active Low back pain Confirmed Active Obese class II Confirmed Active Sleep apnea Confirmed Active 1right nipple Results Radiology Reports * Exam Date Time Procedure Performing Provider Status 02/27/23 1:[address] Abd/Pelvis W/ IV Contrast Only Bobbi Hua; Auth (Verified) Notes: (CT Abd/Pelvis W/ IV Contrast Only) Reason For Exam: Pain RESULT: CT Abd/Pelvis W/ IV Contrast Only CT Abd/Pelvis W/ IV Contrast Only INDICATION: Left lower quadrant pain for several months TECHNIQUE: Helical CT scan through the abdomen and pelvis with IV contrast formatted in 3 planes without enteric contrast. 100 cc of Omnipaque 300 was administered intravenously.Weight-based protocolusing automatic tube modulation was used to optimize exposure parameters. CTDIvol Body: 18.15 mGy, DLP Body: 819 mGy*cm. COMPARISON: 03/31/2022 FINDINGS: THERAPEUTIC PROGRAM WORKER VIEW FINDINGS, LINES AND TUBES: None. LOWER CHEST: Clear lungs. No pleural abnormalities. Normal heart size. No pericardial effusion. DIAPHRAGM: Normal. LIVER: Normal. GALLBLADDER, BILE DUCTS AND JONATHAN HEPATIS: Normal. SPLEEN: Normal. PANCREAS: Normal. ADRENAL GLANDS: Normal. RIGHT KIDNEY AND URETER: Normal. LEFT KIDNEY AND URETER: Normal. URINARY BLADDER: Normal. STOMACH, SMALL BOWEL AND LARGE BOWEL: Normal. No evidence of intestinal inflammation, obstruction or mass. APPENDIX: Normal. REPRODUCTIVE ORGANS: * 3.4 cm round water density cyst in the left ovary. No surrounding inflammatory changes. * Normal uterus and right ovary. OMENTUM, PERITONEUM AND MESENTERY: No ascites, pneumoperitoneum or omental lesions LYMPH NODES: Normal. VASCULATURE: Normal aorta, no aneurysm. No venous thrombosis. ABDOMINAL WALL and RETROPERITONEAL MUSCLES: Normal. BONES: No acute bone findings. IMPRESSION: Solitary cyst of the left ovary is likely physiologic. Otherwise normal. No convincing explanation for pain. WSN: [id number] Ordering Physician: Sayra Leyva Dictated By: Juan Troncoso MD Dictated Date/Time: 02/27/23 1:30 pm Reviewed By: Juan Troncoso MD Signed By: Juan Troncoso MD Signed Date/Time: 02/27/23 1:30 pm Transcribed By: DEMETRICE Transcribed Date/Time: 02/27/23 1:24 pm Vital Signs Most recent to oldest [Reference Range]: 1 2 3 Height 153 cm (02/27/23 2:19 PM) 153 cm (02/27/23 11:40 AM) 153 cm (02/27/23 8:50 AM) Weight 83.9 kg (02/27/23 2:19 PM) 83.9 kg (02/27/23 11:40 AM) 83.9 kg (02/27/23 8:50 AM) Oxygen Saturation [94-100 %] 100 % (02/27/23 2:19 PM) 98 % (02/27/23 11:40 AM) 97 % (02/27/23 8:50 AM) Pulse Rate [55-90 bpm] 65 bpm (02/27/23 2:19 PM) 75 bpm (02/27/23 11:40 AM) 93 bpm *H* (02/27/23 8:50 AM) Body Mass Index [18.5-24.99 kg/m2] 35.84 kg/m2 *>HHI* (02/27/23 2:19 PM) 35.84 kg/m2 *>HHI* (02/27/23 11:40 AM) Blood Pressure [90-138/55-84 mm Hg] 106/59mm Hg (02/27/23 2:19 PM) 112/77mm Hg (02/27/23 11:40 AM) 114/79mm Hg (02/27/23 8:50 AM) Respiratory Rate [16-30 br/min] 18 br/min (02/27/23 2:19 PM) 18 br/min (02/27/23 8:50 AM) Temperature [96.8-100.4 DegF] 98.1 DegF (02/27/23 8:50 AM) Mode of Delivery (Oxygen) Room air (02/27/23 2:19 PM) Room air (02/27/23 11:40 AM) Room air (02/27/23 8:50 AM) Blood pressure sites Arm, left (02/27/23:19 PM) Arm, left (02/27/23 11:40 AM) Temperature Route Oral (02/27/23 8:50 AM) Dry Weight 83.9 kg (02/27/23 2:19 PM) 83.9 kg (02/27/23 11:40 AM) 83.9 kg (02/27/23 8:50 AM) Social History Social History Type Response Smoking Status Never (less than 100 in lifetime) entered on: 07/30/20 Sex Note * Sayra Bucio: PERFORM Event Display: Patient Education Leaflets Authored Date: [id number] Ovarian Cysts ?? [id number] Ovarian Cysts The ovaries are 2 small organs located on each side of the womb (uterus). They are part of the female reproductive system. Ovarian cysts are sacs filled with fluid or tissue that forms on or inside the ovaries. Ovarian cysts are common, especially during childbearing years. There are different types of cysts.Most are harmless (benign) and go away on their own. They often cause no symptoms. If symptoms do occur, they can include mild pain or pressure in the lower belly (abdomen). Cysts that are large can break (rupture) and bleed. This is called a hemorrhagic cyst. This may cause more severe pain and symptoms. In these cases, you may need hospital care or treatment, such as surgery. You may need more extensive treatment if a cyst causes an ovary to twist (called torsion) orif your healthcare provider suspects your cyst is cancerous. Keep in mind that most cysts are not cancerous, however. General care ??? To help relieve pain, your healthcare provider may recommend using [id number] pain medicine. If needed, your provider may prescribe stronger pain medicine. ??? Depending on thetype of cyst you have, your healthcare provider may advise taking control pills. These help shrink cysts in certain cases. They may also help prevent new cysts from forming. Be sure to take these medicines as directed if they are prescribed. ??? Your healthcare provider may advise you to watch your symptoms over time to see if they go away or worsen. Regular ultrasound tests may also be advised. These can help check if a cyst goes away or grows in size. ?? Follow-up care Follow up with your healthcare provider, or as advised. ?? When to get medical advice Call your healthcare provider right away if any of these occur: ??? Pain gets worse or doesn't get better with home treatment ??? Fever of 100.4??F (38??C) or higher, or as directed by your healthcare provider ??? Nausea and vomiting ??? Weakness, dizziness, or fainting ??? Abnormal vaginal bleeding ?? Last Reviewed Date: 2022 ?? [id number] [employer]. All rights reserved. This information is not intended as a substitute for professional medical care. Always follow your healthcare professional's instructions. ?? Patient Care team information Care Team Personnel Name: Mary Pastor RN Position: [facility] RN Member Role: Primary Care Nurse Name: Junie Beck RN Position: [facility] RN Member Role: Primary Care Nurse Name: Not on Staff, PCP Position: [facility] Physician (General Medicine) Member Role: PCP Name: Sayra Bucio Position: [facility] Associate Professional Member Role: ED Physician Catcher Helper Address: Address: [address] [place] [address] [place], [place] [address] Name: Ernesto Frye MD Position: [facility] ED Medicine MD Member Role: Admitting Physician Address: Address: [address] [place] [address]- [place] [address]- Name: Sarah Reed RN Position: [facility] ED RN W/OE and Tasks Member Role: Patient Care Provider Name: Dea Bhatia Position: [facility] ED OA Member Role: Patient Care Provider Name: Nga Smith RN Position: [facility] ED RN W/OE and Tasks Member Role: Patient Care Provider Care Team Related Persons Name: DEE MOBLEY Address: home [address] [place] [address] Name: MYRA TRUONG Address: home [address] [place] [address] Name: JOSH TRUONG Address: home [address] [place] [address]
--- OUTSIDE RECORDS SUMMARY | 2024-02-13 23:19 | XMS_ITS | Continuity of Care Document ---
Author Organization [facility] Address [address], [address] [place] [address]- Care Team Providers Care E Learning Coordinator Name Role Phone Garret FORD, Yousif Salinas Primary Care Physician Encounter [facility] Date(s): 03/19/21 - 04/18/21 [facility] [address], [address]th [place] [address]- Allergies, Adverse Reactions, Alerts Substance Reaction Severity [...] Start Date: 08/16/20 Status: Ordered Vitamin D 22884 iu oral capsule 50,000 International_Units, By Mouth, [...]
--- OUTSIDE RECORDS SUMMARY | 2024-02-13 23:19 | XMS_ITS | Continuity of Care Document ---
Author Organization [facility] Address [address] [place] [address]- Care Team Providers Care Patrol Deputy Sheriff Name Role Phone Garret FORD, Yousif Salinas Primary Care Physician Encounter [facility] Date(s): 09/09/21 - 10/09/[address] [address]- Allergies, Adverse Reactions, Alerts Substance Reaction Severity Status Cats Active Medications fluconazole 150 mg oral tablet 1 tablet = 150 mg, By Mouth, Once, epeat dose if still having symptoms in 72 hours, # 2 tablet, 0 Refills, Soft Stop, 10/04/21 16:27:00 EDT, [facility], Partial fill upon patient request if the prescription is for a schedule II opio... Start Date: 10/04/21 Status: Ordered hydrocortisone 1% topical cream 1 application, Topically, 2 times a day, Use 1-2 times per day for 3-4 weeks until follow up appointment, # 14 Gm, 1 Refills, Maintenance, 10/04/21 16:26:00 EDT, Cream, [facility], Partialfill upon patient request if the prescription is fo... Start Date: 10/04/21 Status: Ordered metroNIDAZOLE 500 mg oral tablet 1 tablet = 500 mg, By Mouth, Every 12 hours, for 7 days, # 14 tablet, 0 Refills, Acute 10/11/21 16:26:00 EDT, 10/04/21 16:26:00 EDT, [facility], Partial fill upon patient request if the prescription is for a schedule II opioid drug.... Start Date: 10/04/21 Stop Date: 10/11/21 Status: Ordered Valtrex 500 mg oral tablet 500 mg, 1, tablet, By Mouth, Daily, for 90 days, # 90 tablet, Refills 1, Tot. Refills 1, Acute 01/03/22 14:24:00 EDT, 07/07/21 14:24:00 EST, Route to Pharmacy Electronically, [facility], Partial fill upon patient [...]
--- OUTSIDE RECORDS SUMMARY | 2024-02-13 23:19 | XMS_ITS | Continuity of Care Document ---
Author Organization [facility] Address [address] [place] [address]- Care Team Providers Care Hair Preparer Name Role Phone Not on Staff, PCP Primary Care Physician Unavail able Encounter [facility] Date(s): 10/01/23 - 10/08/[address] [address]- Attending Physician: Maddy Gale MD Allergies, Adverse Reactions, Alerts No Known [...] 10/03/23 3:01:00 EDT, Route to Pharmacy Electronically, [facility], Partial fill upon patient request if the prescription is for a sc... Start Date: 10/03/23 Status: Ordered Tylenol 325 mg oral tablet 975 mg, 3, tablet, By Mouth, Every 8 hours, PRN, # 30 tablet, Refills 0, Tot. Refills 0, Maintenance, for pain, 10/03/23 3:01:00 EDT, Route to Pharmacy Electronically, [facility], Partial fill upon patient request if the prescript... Start Date: 4/17/24 Status: Ordered Problem List Condition Confirmation Course [...] Nurse Name: Not on Staff, PCP Position: [facility] Physician (General Medicine) Member Role: PCP Care Team Related Persons Name: DEE MOBLEY Address: home [address] [place] [address] Name: MYRA TRUONG Address: home [address] [place] [address] Name: JOSH TRUONG Address: [address] [place] [address]
--- OUTSIDE RECORDS SUMMARY | 2024-02-13 23:19 | XMS_ITS | Continuity of Care Document ---
Author Organization [facility] Address [address] [place] [address]- Care Team Providers Care Scout Leaser Name Role Phone Garret FORD, Yousif Salinas Primary Care Physician Encounter [facility] Date(s): 08/25/21 - 09/24/[address] [address]- Allergies, Adverse Reactions, Alerts Substance Reaction Severity Status Cats Active Medications fluconazole 150 mg oral tablet 1 tablet = 150 mg, By Mouth, Once, # 1 tablet, 0 Refills, Soft Stop, 09/09/21 17:15:00 EDT, Tablet,[facility], Partial fill upon patient request if the prescription is for a schedule II opioid drug., 153, cm, 07/07/21 13:15:00 ES... Start Date: 09/09/21 Status: Ordered hydrocortisone 1% topical cream 1 application, Topically, 2 times a day, Use 1-2 times per day for 3-4 weeks until follow up appointment, # 14 Gm, 1 Refills, Maintenance, 07/07/21 14:28:00 EST, Cream, [facility], Partial fill upon patient request if the prescrip... Start Date: 07/07/21 Status: Ordered ibuprofen 600 mg oral tablet 600 mg, 1, tablet, By Mouth, Every 8 hours, # 30 tablet, Refills 0, Tot. Refills 0, Maintenance, 09/13/21 20:20:00 EDT, Route to Pharmacy Electronically, [facility] #[id number], Partial fill upon patientrequest if the prescription is for a schedule II op... Start Date: 09/13/21 Status: Ordered Lidoderm 5% film 1 patch, Topically, Daily, remove patches after 12 hours, # 30 patch, 0 Refills, Maintenance, 09/13/21 20:20:00 EDT, [facility] #[id number], Partial fill upon patient request if the prescription is for aschedule II opioid drug., 1 patch Topically Daily,I... Start Date: 09/13/21 Status: Ordered oxyCODONE 5 mg oral tablet See Instructions, PRN, 1 tablet By Mouth at bedtime one tablet only, # 1 tablet, Refills 0, Tot. Refills 0, Maintenance, for pain, 09/13/21 20:39:00 EDT, Instructions Replace Required Details, Route to Pharmacy Electronically, [facility]/pharmacy #[id number], P... Start Date: 09/13/21 Status: Ordered Probiotic Formula By Mouth, Daily, [...] 07/07/21 14:24:00 EST, Route to Pharmacy Electronically, [facility], Partial fill upon patient request if the pr... Start Date: 07/07/21 Stop Date: 01/03/22 Status: Ordered Vitamin D 73409 iu oral capsule 50,000 International_Units, By Mouth, [...]
--- OUTSIDE RECORDS SUMMARY | 2024-02-13 23:19 | XMS_ITS | Continuity of Care Document ---
Author Organization [facility] Address [address] [facility] [place] [address]- Care Team Providers Care Assistant Professor Of Psychology Name Role Phone Not on Staff, PCP Primary Care Physician Unavail able Encounter [facility] Date(s): 05/08/23 - 06/07/23 [facility] [address] [place] [address]- Allergies, Adverse Reactions, Alerts No Known Medication Allergies Substance Reaction Severity Status Cats Active Medications diclofenac 3% topical gel 1 application, Topically, 2 times a day, # 50 Gm, 0 Refills, Maintenance, 02/22/22 11:25:00 EDT, Gel, [facility], Partial fill upon [...] 10 tablet, 0 Refills, Maintenance, [facility] upon patient [...] Member Role: Primary Care Nurse Name: Kiran RN, Junie Position: S RN Member Role: Primary Care Nurse Name: Not on Staff, PCP Position: [facility] Physician (General Medicine) Member Role: PCP Care Team Related Persons Name: DEE MOBLEY Address: [address] [address] Name: MYRA TRUONG Address: [address] [address] Name: JOSH TRUONG Address: [address] [address]
--- OUTSIDE RECORDS SUMMARY | 2024-02-13 23:19 | XMS_ITS | Continuity of Care Document ---
Author Organization [facility] Address [address] [place] [address]- Care Team Providers Care Controller Mechanic Name Role Phone Not on Staff, PCP Primary Care Physician Unavail able Encounter [facility] Date(s): 12/12/23 - 01/11/[address] [address]- Allergies, Adverse Reactions, Alerts No Known Medication [...] 10/03/23 3:01:00 EDT, Route to Pharmacy Electronically, [facility], Partial fill upon patient request if the prescription is for a sc... Start Date: 10/03/23 Status: Ordered Tylenol 325 mg oral tablet 975 mg, 3, tablet, By Mouth, Every 8 hours, PRN, # 30 tablet, Refills 0, Tot. Refills 0, Maintenance, for pain, 10/03/23 3:01:00 EDT, Route to Pharmacy Electronically, [facility], Partial [...] Team Personnel Name: Mary Pastor RN Position: [facility] RN Member Role: Primary Care Nurse Name: Junie Beck RN Position: [facility] RN Member Role: Primary Care Nurse Name: Not on Staff, PCP Position: [facility] Physician (General Medicine) Member Role: PCP Care Team Related Persons Name: DEE MOBLEY Address: home [address] [place] [address] Name: MYRA TRUONG Address: [address] [place] [address] Name: JOSH TRUONG Address: [address] [place] [address]
--- OUTSIDE RECORDS SUMMARY | 2024-02-13 23:19 | XMS_ITS | Continuity of Care Document ---
Author Organization [facility] Address [address] [place] [address]- Care Team Providers Care Price Checker Name Role Phone Not on Staff, PCP Primary Care Physician Unavail able Encounter [facility] Date(s): 08/27/23 - 09/26/23 [facility] [address] [address]- Allergies, Adverse Reactions, Alerts No Known Medication [...] Nurse Name: Not on Staff, PCP Position: [facility] Physician (General Medicine) Member Role: PCP Care Team Related Persons Name: DEE MOBLEY Address: home [address] [place] [address] Name: MYRA TRUONG Address: [address] [place] [address] Name: JOSH TRUONG Address: [address] [place] [address]
--- OUTSIDE RECORDS SUMMARY | 2024-02-13 23:19 | XMS_ITS | Continuity of Care Document ---
Author Organization [facility] Address [address] [place] [address]- Care Team Providers Care Email Marketing Assistant Name Role Phone Garret FORD, Yousif Salinas Primary Care Physician [place] [facility] [place] 05/[place]/21 [facility] [address] [id number] Attending Physician: Not on Staff, Attending MD Allergies, Adverse Reactions, Alerts Substance Reaction Severity Status Cats Active Medications fluconazole 150 mg oral tablet 1 tablet = 150 mg, By Mouth, Once, Repeat dose if still having symptoms in 72 hours, # 2 tablet, 0 Refills, Soft Stop, 07/30/20 13:50:00 EST, Tablet, [facility], Partial fill upon patient request if the prescription is for a sched... Start Date: 07/30/20 Status: Ordered Probiotic Formula By Mouth, Daily, 0 Refills, Maintenance, 08/16/20 9:23:00 EST, Partial fill upon patient request ifthe prescription is for a schedule II opioid drug. Start Date: 08/16/20 Status: Ordered Vitamin D 01673 iu oral capsule 50,000 International_Units, By Mouth, [...]
--- OUTSIDE RECORDS SUMMARY | 2024-02-13 23:19 | XMS_ITS | Continuity of Care Document ---
Author Organization [facility] Address [address] [place] [address]- Care Team Providers Care Supervisor International Reservations Name Role Phone Garret FORD, Yousif Salinas Primary Care Physician [place] [facility] [place] - 12/09/[address] [address]- Allergies, Adverse Reactions, Alerts Substance Reaction Severity Status Cats Active Medications fluconazole 150 mg oral tablet 1 tablet = 150 mg, By Mouth, Once, epeat dose if still having symptoms in 72 hours, # 2 tablet, 0 Refills, Soft Stop, 10/04/21 16:27:00 EDT, Tablet, [email or web address], Partial fill upon patient request [...] 07/07/21 14:24:00 EST, Route to Pharmacy Electronically, [facility], Partial fill upon [...]
--- OUTSIDE RECORDS SUMMARY | 2024-02-13 23:19 | XMS_ITS | Continuity of Care Document ---
Author Organization [facility] Address [address] [place] [address]- Care Team Providers Care Grain Elevator Worker Name Role Phone Garret FORD, Yousif Salinas Primary Care Physician En[place] [facility] [place] Date(s): 10/21/20 - 12/29/[address] [address]- Attending Physician: Not on Staff, Attending MD Allergies, Adverse Reactions, Alerts Substance Reaction Severity Status Cats Active Medications Diflucan 150 mg oral tablet 1 tablet = 150 mg, By Mouth, Every week, One pill once per week for 6 months, # 4 tablet, 5 Refills, Acute 01/16/21 8:00:00 EDT, 08/06/20 16:42:00 EST, Tablet, [facility], Partial fill upon patient request if the prescription is f... Start Date: 08/06/20 Stop Date: 01/16/21 Status: Ordered fluconazole 150 mg oral tablet 1 tablet = 150 mg, By Mouth, Once, Repeat dose if still having symptoms in 72 hours, # 2 tablet, 0 Refills, Soft Stop, 07/30/20 13:50:00 EST, Tablet, [facility], Partial fill upon patient request if the prescription is for a sched... Start Date: 07/30/20 Status: Ordered Probiotic Formula By Mouth, Daily, 0 Refills, Maintenance, 08/16/20 9:23:00 EST, Partial fill upon patient request ifthe prescription is for a schedule II opioid drug. Start Date: 08/16/20 Status: Ordered Vitamin D 74630 iu oral capsule 50,000 International_Units, By Mouth, [...]
--- OUTSIDE RECORDS SUMMARY | 2024-02-13 23:20 | XMS_ITS | Continuity of Care Document ---
Author Organization [facility] Address [address] [place] [address]- Care Team Providers Care Plant Maintenance Supervisor Name Role Phone Not on Staff, PCP Primary Care Physician Unavail able Encounter [facility] [place] Date(s): 04/11/23 - 05/11/23 [facility] [address] [facility] [address] 4th [address] [place] [address]- Allergies, Adverse Reactions, Alerts No Known Medication Allergies Substance Reaction Severity Status Cats Active Medications diclofenac 3% topical gel 1 application, Topically, 2 times a day, # 50 Gm, 0 Refills, Maintenance, 02/22/22 11:25:00 EDT, Gel, [facility], Partial fill [...] 10 tablet, 0 Refills, Maintenance, [id number] [...] Care Nurse Name: Junie Beck RN Position: [facility] RN Member Role: Primary Care Nurse Name: Not on Staff, PCP Position: [facility] Physician (General Medicine) Member Role: PCP Care Team Related Persons Name: DEE MOBLEY Address: [address] [address] Name: MYRA TRUONG Address: home [address] [place] [address] Name: JOSH TRUONG Address: [address] [address]
--- OUTSIDE RECORDS SUMMARY | 2024-02-13 23:20 | XMS_ITS | Continuity of Care Document ---
Author Organization [facility] Address [address] [place] [address]- Care Team Providers Care Fountain Jerk Name Role Phone Garret FORD, Yousif Salinas Primary Care Physician [phone] [place] [facility] [place] 10/05/21 - 01/04/22 [facility] [address] [address]- Attending Physician: Not on Staff, Attending MD Allergies, Adverse Reactions, Alerts Substance Reaction Severity Status Cats Active Medications fluconazole 150 mg oral tablet 1 tablet = 150 mg, By Mouth, Once, epeat dose if still having symptoms in 72 hours, # 2 tablet, 0 Refills, Soft Stop, 10/04/21 16:27:00 EDT, Tablet, [facility], Partial fill upon patient request if the prescription is for a schedule II opio... Start Date: 10/04/21 Status: Ordered hydrocortisone 1% topical cream 1 application, Topically, 2 times a day, Use 1-2 times per day for 3-4 weeks until follow up appointment, # 14 Gm, 1 Refills, Maintenance, 10/04/21 16:26:00 EDT, Cream, [facility], Partialfill upon patient request if [...]
--- OUTSIDE RECORDS SUMMARY | 2024-02-13 23:20 | XMS_ITS | Continuity of Care Document ---
Author Organization [facility] Address [address] [place] [address]- Care Team Providers Care Welding Setter Name Role Phone Garret FORD, Yousif Salinas Primary Care Physician En[place] [facility] [place] Date(s): 10/04/21 - 11/03/[address] [address] Allergies, Adverse Reactions, Alerts Substance Reaction Severity Status Cats Active Medications fluconazole 150 mg oral tablet 1 tablet = 150 mg, By Mouth, Once, epeat dose if still having symptoms in 72 hours, # 2 tablet, 0 Refills, Soft Stop, 10/04/21 16:27:00 EDT, Tablet, [facility], Partial fill upon patient request if the prescription is for a schedule II opio... Start Date: 10/04/21 Status: Ordered hydrocortisone 1% topical cream 1 application, Topically, 2 times a day, Use 1-2 times per day for 3-4 weeks until follow up appointment, # 14 Gm, 1 Refills, Maintenance, 10/04/21 16:26:00 EDT, Cream, [facility], Partialfill upon patient request if the prescription is fo... Start Date: 10/04/21 Status: Ordered Valtrex 500 mg oral tablet 500 mg, 1, tablet, By Mouth, Daily, for 90 days, # 90 tablet, Refills 1, Tot. Refills 1, Acute 01/03/22 14:24:00 EDT, 07/07/21 14:24:00 EST, Route to Pharmacy Electronically, [facility], Partial fill upon patient request [...]
--- OUTSIDE RECORDS SUMMARY | 2024-02-13 23:20 | XMS_ITS | Continuity of Care Document ---
Author Organization [facility] Address [address] [place] [address]- Care Team Providers Care Oracle Dba Name Role Phone Garret FORD, Yousif Salinas Primary Care Physician [phone] Encounter [facility] [place] Date(s): 07/06/21 - 08/10/[address] [address]- Attending Physician: Not on Staff, Attending MD Allergies, Adverse Reactions, Alerts Substance Reaction Severity Status Cats Active Medications Diflucan 150 mg oral tablet See Instructions, Take 1 tablet today, then if symptoms persist take another tablet in 72 hours after first was taken., # 2 tablet, 0 Refills, Soft Stop, 07/08/21 15:21:00 EST, Tablet, [facility], Partial fill upon patient request... Start Date: 07/08/21 Status: Ordered fluconazole 150 mg oral tablet 1 tablet = 150 mg, By Mouth, Once, Repeat dose if still having symptoms in 72 hours, # 2 tablet, 0 Refills, Soft Stop, 07/30/20 13:50:00 EST, Tablet, [facility], Partial fill upon patient request if the prescription is for a sched... Start Date: 07/30/20 Status: Ordered hydrocortisone 1% topical cream 1 application, Topically, 2 times a day, Use 1-2 times per day for 3-4 weeks until follow up appointment, # 14 Gm, 1 Refills, Maintenance, 07/07/21 14:28:00 EST, Cream, [facility], Partial fill upon patient request if [...] 07/07/21 14:24:00 EST, Route to Pharmacy Electronically, [facility], Partial fill upon patient request if the pr... Start Date: 07/07/21 Stop Date: 01/03/22 Status: Ordered Vitamin D 66473 iu oral capsule 50,000 International_Units, By Mouth, [...]
--- OUTSIDE RECORDS SUMMARY | 2024-02-13 23:20 | XMS_ITS | Continuity of Care Document ---
Author Organization [facility] Address [address] [place] [address]- Care Team Providers Care Portable Power Tool Repairer Name Role Phone Garret FORD, Yousif Salinas Primary Care Physician Encounter [facility] [place] Date(s): 12/05/21 - 01/04/[address] [address]- Attending Physician: Willy Taylor Admitting Physician: Willy Taylor Referring Physician: AdmtrWilly Allergies, Adverse Reactions, Alerts Substance Reaction Severity Status Cats Active Medications fluconazole 150 mg oral tablet 1 tablet = 150 mg, By Mouth, Once, epeat dose if still having symptoms in 72 hours, # 2 tablet, 0 Refills, Soft Stop, 10/04/21 16:27:00 EDT, Tablet, [facility], Partial fill upon patient request if the prescription is for a schedule II opio... Start Date: 10/04/21 Status: Ordered hydrocortisone 1% topical cream 1 application, Topically, 2 times a day, Use 1-2 times per day for 3-4 weeks until follow up appointment, # 14 Gm, 1 Refills, Maintenance, 10/04/21 16:26:00 EDT, Cream, [facility], Partialfill upon patient request if [...]
--- OUTSIDE RECORDS SUMMARY | 2024-02-13 23:20 | XMS_ITS | Continuity of Care Document ---
Author Organization [facility] Address [address] [place] [address]- Care Team Providers Care Carroting Machine Offbearer Name Role Phone Not on Staff, PCP Primary Care Physician Unavail able Encounter [facility] [place] Date(s): 02/26/23 - 02/26/[address] [address]- Discharge Disposition: A-D/C Walkout Attending Physician: Not on Staff, Attending MD Admitting Physician: Not on Staff, Admitting MD Referring Physician: Not on Staff, Referring MD Allergies, Adverse Reactions, Alerts No Known Medication Allergies Substance Reaction Severity Status Cats Active Medications diclofenac 3% topical gel 1 application, Topically, 2 times a day, # 50 Gm, 0 Refills, Maintenance, 02/22/22 11:25:00 EDT, Gel, [facility], Partial fill [...] 0 Refills, Maintenance, 04/27/22 22:48:00 EST, Film, [facility], Partial fill upon patient request [...] Active Sleep apnea Confirmed Active 1right nipple Vital Signs Most recent to oldest [Reference Range]: 1 2 3 Weight 84.6 kg (02/26/23 7:46 PM) 84.6 kg (02/26/23 7:36 PM) Oxygen Saturation [94-100 %] 96 % (02/26/23 9:37 PM) 99 % (02/26/23 7:36 PM) 100 % (02/26/23 7:33 PM) Pulse Rate [55-90 bpm] 72 bpm (02/26/23 9:37 PM) 88 bpm (02/26/23 7:36 PM) 102 bpm *H* (02/26/23 7:33 PM) Blood Pressure [90-138/55-84 mm Hg] 113/81mm Hg (02/26/23 9:37 PM) 124/83mm Hg (02/26/23 7:36 PM) Respiratory Rate [16-30 br/min] 16 br/min (02/26/23 7:36 PM) 18 br/min (02/26/23 7:33 PM) Temperature [96.8-100.4 DegF] 98.4 DegF (02/26/23 9:37 PM) 98.1 DegF (02/26/23 7:36 PM) Mode of Delivery (Oxygen) Room air (02/26/23 7:36 PM) Room air (02/26/23 7:33 PM) Blood pressure sites Arm, left (02/26/23 9:37 PM) Arm, left (02/26/23 7:36 PM) Temperature Route Oral (02/26/23 9:37 PM) Oral (02/26/23 7:36 PM) Dry Weight 84.6 kg (02/26/23 7:46 PM) 84.6 kg (02/26/23 7:36 PM) Weight Obtained Via Standing scale (02/26/23 7:36 PM) Dry Weight Obtained Via Standing scale (02/26/23 7:36 PM) Social History Social History Type Response Smoking Status Never (less than 100 in lifetime) entered on: 07/30/20 Sex Patient Care team information Care Team Personnel Name: Mary Pastor RN Position: S RN Member Role: Primary Care Nurse Name: Junie Beck RN Position: [facility] RN Member Role: Primary Care Nurse Name: Not on Staff, PCP Position: [facility] Physician (General Medicine) Member Role: PCP Care Team Related Persons Name: DEE MOBLEY Address: home [address] [place] [address] Name: MYRA TRUONG Address: home [address] [place] [address] Name: JOSH TRUONG Address: [address] [address]
--- OUTSIDE RECORDS SUMMARY | 2024-02-13 23:20 | XMS_ITS | Continuity of Care Document ---
Author Organization [facility] Address [address] [place] [address]- Care Team Providers Care Grounds Restoration Specialist Name Role Phone Garret FORD, Yousif Salinas Primary Care Physician En[place] [facility] [place] Date(s): 07/27/22 - 08/26/22 [facility] [address] 4th [address] [place], [place] [address] Attending Physician: Willy Taylor Admitting Physician: AdmWilly mares Referring Physician: AdmtrWilly Allergies, Adverse Reactions, Alerts Substance Reaction Severity Status Cats Active Medications diclofenac 3% topical gel 1 application, Topically, 2 times a day, # 50 Gm, 0 Refills, Maintenance, 02/22/22 11:25:00 EDT, Gel, [facility], Partial fill upon patient request if the prescription is for a schedule II opioid drug., 1 application Topically 2 t... Start Date: 02/22/22 Stop Date: 03/01/22 Status: Ordered Diflucan 150 mg oral tablet 1 tablet = 150 mg, By Mouth, Once, # 1 tablet, 0 Refills, Soft Stop, 04/30/22 12:37:00 EST, Tablet,[facility], Partial fill upon patient request if the prescription is for a schedule II opioid drug., 153, cm, 04/27/22 18:27:00 EST, Height,... Start Date: 04/30/22 Status: Ordered hydrocortisone 1% topical cream 1 application, Topically, 2 times a day, Use 1-2 times per day for 3-4 weeks until follow up appointment, # 14 Gm, 1 Refills, Maintenance, 10/04/21 16:26:00 EDT, Cream, [facility], Partialfill upon patient request if the prescription is fo... Start Date: 10/04/21 Status: Ordered ibuprofen 600 mg oral tablet 600 mg, 1, tablet, By Mouth, Every 6 hours, # 50 tablet, Refills 0, Tot. Refills 0, Maintenance, 04/27/22 22:55:00 EST, Route to Pharmacy Electronically, [facility][id number], Partial fill upon patientrequest if the prescription is for a schedule II op... Start Date: 04/27/22 Status: Ordered lidocaine 5% topical film 1 patch, Topically, Daily, PRN Pain , Mild, remove after 12 hours, # 13 each, 0 Refills, Maintenance, 04/27/22 22:48:00 EST, Film, [facility], Partial fill upon patient request if the prescription is for a schedule II opioid drug., 1 patch... Start Date: 04/27/22 Status: Ordered Tylenol 325 mg oral capsule 3 capsule = 975 mg, By Mouth, Every 6 hours, PRN as needed for fever, # 60 capsule, 0 Refills, Maintenance, 04/27/22 22:55:00 EST, Capsule, [facility] #[id number], Partial fill upon patient [...] (General Medicine) Member Role: PCP Address: Address: [address] [place] [address], [address] [place] [address]- Care Team Related Persons Name: DEE MOBLEY Address: [address] [place] [address] [address] Name: MYRA TRUONG Address: home [address] [place] [address] Name: JOSH TRUONG Address: [address] [place] [address]
--- OUTSIDE RECORDS SUMMARY | 2024-02-13 23:20 | XMS_ITS | Continuity of Care Document ---
Author Organization [facility] Address [address] [place] [address]- Care Team Providers Care Package Maker Name Role Phone Garret FORD, Yousif Salinas Primary Care Physician [phone] Encounter [facility] [place] Date(s): 04/27/22 - 05/27/[address] [address] Allergies, Adverse Reactions, Alerts Substance Reaction Severity Status Cats Active Medications diclofenac 3% topical gel 1 application, Topically, 2 times a day, # 50 Gm, 0 Refills, Maintenance, 02/22/22 11:25:00 [facility]T, [facility] fill upon patient request if the prescription is for a schedule II opioid drug., 1 application Topically 2 t... Start Date: 02/22/22 Stop Date: 03/01/22 Status: Ordered Diflucan 150 mg oral tablet 1 tablet = 150 mg, By Mouth, Once, # 1 tablet, 0 Refills, Soft Stop, 04/30/22 12:37:00 EST, Tablet,[facility], Partial fill upon patient request if the prescription is for a schedule II opioid drug., 153, cm, 04/27/22 18:27:00 EST, Height,... Start Date: 04/30/22 Status: Ordered hydrocortisone 1% topical cream 1 application, Topically, 2 times a day, Use 1-2 times per day for 3-4 weeks until follow up appointment, # 14 Gm, 1 Refills, Maintenance, 10/04/21 16:26:00 EDT, Cream, [facility], Partialfill upon patient request if the prescription is fo... Start Date: 10/04/21 Status: Ordered ibuprofen 600 mg oral tablet 600 mg, 1, tablet, By Mouth, Every 6 hours, # 50 tablet, Refills 0, Tot. Refills 0, Maintenance, 04/27/22 22:55:00 EST, [id number] Partial fill upon patientrequest if the prescription is for a schedule II op... Start Date: 04/27/22 Status: Ordered lidocaine 5% topical film 1 patch, Topically, Daily, PRN Pain , Mild, remove after 12 hours, # 13 each, 0 Refills, Maintenance, 04/27/22 22:48:00 EST, Film, [facility], Partial fill upon patient request if the prescription is for a schedule II opioid drug., 1 patch... Start Date: 04/27/22 Status: Ordered Tylenol 325 mg oral capsule 3 capsule = 975 mg, By Mouth, Every 6 hours, PRN as needed for fever, # 60 capsule, 0 Refills, Maintenance, 04/27/22 22:55:00 EST, [facility]apsule[id number] Partial fill upon patient request [...] Team Personnel Name: Mary Pastor RN Position: [facility] RN Member Role: Primary Care Nurse Name: Junie Beck RN Position: S RN Member Role: Primary Care Nurse Name: Yousif Combs MD Position: [facility] Physician (General Medicine) Member Role: PCP Address: Address: [address] [place] [address], [address] [facility] [place] [address]- [place] Care Team Related Persons Name: DEE MOBLEY Address: home [address] [place] [address] Name: MYRA TRUONG Address: [address] [place] [address] Name: JOSH TRUONG Address: [place] [address] [place] [address]
--- OUTSIDE RECORDS SUMMARY | 2024-02-13 23:20 | XMS_ITS | Continuity of Care Document ---
Author Organization [facility] Address [address] [place] [address]- Care Team Providers Care Lotus Notes Developer Name Role Phone Garret FORD, Yousif Salinas Primary Care Physician [place] [facility] [place] Date(s): 10/20/21 - 11/19/[address] [address]- Allergies, Adverse Reactions, Alerts Substance Reaction Severity Status Cats Active Medications fluconazole 150 mg oral tablet 1 tablet = 150 mg, By Mouth, Once, epeat dose if still having symptoms in 72 hours, # 2 tablet, 0 Refills, Soft Stop, 10/04/21 16:27:00 EDT, Tablet, [facility], Partial fill upon patient request if the prescription is for a schedule II opio... Start Date: 10/04/21 Status: Ordered hydrocortisone 1% topical cream 1 application, Topically, 2 times a day, Use 1-2 times per day for 3-4 weeks until follow up appointment, # 14 Gm, 1 Refills, Maintenance, 10/04/21 16:26:00 EDT, Cream, [facility], Partialfill upon patient request if the prescription is fo... Start Date: 10/04/21 Status: Ordered Valtrex 500 mg oral tablet 500 mg, 1, tablet, By Mouth, Daily, for 90 days, # 90 tablet, Refills 1, Tot. Refills 1, Acute 01/03/22 14:24:00 EDT, 07/07/21 14:24:00 EST, Route to Pharmacy Electronically, [facility], Partial fill upon patient [...]
--- OUTSIDE RECORDS SUMMARY | 2024-02-13 23:20 | XMS_ITS | Continuity of Care Document ---
Author Organization [facility] Address [address] [place] [address]- Care Team Providers Care Society Reporter Name Role Phone Yousif Combs MD Primary Care Physician [phone] Encounter [facility] Date(s): 11/29/19 - 11/30/[address] [address]- [facility] Encounter Diagnosis Back pain(Final) - 11/29/19 Discharge Disposition: A-D/C Home Attending Physician: Farzana Barraza MD Admitting Physician: Farzana Barraza MD Referring Physician: Not on Staff, Referring MD Allergies, Adverse Reactions, Alerts Substance Reaction Severity Status Cats Active Medications acetaminophen 325 mg oral tablet 650 mg, 2, tablet, By Mouth, Every 4 hours, PRN, for 5 days, not to exceed 4000 mg/day, # 50 tablet, Refills 0, Tot. Refills 0, Acute 12/04/19 23:47:00 EDT, as needed for pain, 11/29/19 23:47:00 EDT,Route to Pharmacy Electronically, [facility]... Start Date: 11/29/19 Stop Date: 12/04/19 Status: Ordered ibuprofen 600 mg oral tablet = 600 mg, By Mouth, 3 times a day, PRN Pain , Mild, # 21 tablet, 0 Refills, Maintenance, 07/02/15 9:37:39, Tablet Start Date: 07/02/15 Stop Date: 07/09/15 Status: Ordered lidocaine 5% topical film 1 patch, Topically, Daily, remove patches after 12 hours, # 30 patch, 0 Refills, Maintenance, 11/29/19 23:47:00 EDT, [facility] [id number], 1 patch Topically Daily,x30 days,Instr:remove patches after12 hours, 153, cm, 03/01/19 10:43:00 EDT, Height, 8... Start Date: 11/29/19 Stop Date: 12/29/19 Status: Ordered ondansetron 4 mg oral tablet, disintegrating = 4 mg, By Mouth, Once, PRN as needed for nausea/vomiting, # 10 tablet, 0 Refills, Soft Stop, 07/02/15 9:37:08, Tablet Start Date: 07/02/15 Status: Ordered Tri-Sprintec 1 tablet, By Mouth, Daily, 0 Refills, Maintenance, 05/12/15 10:14:11 Start Date: 05/12/15 Status: Ordered Problem List Condition Effective Dates Status Health Status Inform ant Eczema(Confirmed) 1 Active Breast pain, right(Confirmed) Active 1right nipple Vital Signs Most recent to oldest [Reference Range]: 1 2 3 Oxygen Saturation [94-100 %] 100 % (11/30/19 12:36 AM) 99 % (11/29/19 9:16 PM) 98 % (11/29/19 7:13 PM) Pulse Rate [55-90 bpm] 80 bpm (11/30/19 12:36 AM) 78 bpm (11/29/19 9:16 PM) 70 bpm (11/29/19 7:13 PM) Blood Pressure [90-138/55-84 mm Hg] 104/70mm Hg (11/30/19 12:36 AM) 105/89mm Hg (11/29/19 9:16 PM) 111/67mm Hg (11/29/19 7:13 PM) Respiratory Rate [16-30 br/min] 18 br/min (11/30/19 12:36 AM) 17 br/min (11/29/19 9:16 PM) 18 br/min (11/29/19 7:13 PM) Temperature [96.8-100.4 DegF] 97.8 DegF (11/30/19 12:36 AM) 98.3 DegF (11/29/19 5:51 PM) Mode of Delivery (Oxygen) Room air (11/30/19 12:36 AM) Room air (11/29/19 9:16 PM) Room air (11/29/19 7:13 PM) Blood pressure sites Arm, left (11/30/19 12:36 AM) Arm, left (11/29/19 9:16 PM) Arm, left (11/29/19 7:13 PM) Temperature Route Oral (11/30/19 12:36 AM) Oral (11/29/19 5:51 PM) Social History Social History Type Response Smoking Status Never smoker entered on: 05/12/15 Sex
--- OUTSIDE RECORDS SUMMARY | 2024-02-13 23:20 | XMS_ITS | Continuity of Care Document ---
Author Organization [facility] Address [address] [place] [phone]- Care Team Providers Care Chip Mixing Machine Operator Name Role Phone Garret FORD, Yousif Salinas Primary Care Physician Encounter [facility] Date(s): 11/18/20 - 12/18/[address] [address] Attending Physician: Willy Taylor Admitting Physician: AdmWilly mares Referring Physician: Admtr, ArObed Allergies, Adverse Reactions, Alerts Substance Reaction Severity Status Cats Active Medications Diflucan 150 mg oral tablet 1 tablet = 150 mg, By Mouth, Every week, One pill once per week for 6 months, # 4 tablet, 5 Refills, Acute 01/16/21 8:00:00 EDT, 08/06/20 16:42:00 EST, Tablet, [facility], Partial fill upon patient request if the prescription is f... Start Date: 08/06/20 Stop Date: 01/16/21 Status: Ordered fluconazole 150 mg oral tablet 1 tablet = 150 mg, By Mouth, Once, Repeat dose if still having symptoms in 72 hours, # 2 tablet, 0 Refills, Soft Stop, 07/30/20 13:50:00 EST, Tablet, [facility], Partial fill upon patient [...] times a day, for 3 days, # 30 tablet, Refills 1, Tot. Refills 1, Acute 12/21/20 16:59:00 EDT, 12/15/20 16:59:00 EDT, Route to Pharmacy Electronically, [facility], Partial fill upon patient request if... Start Date: 12/15/20 Stop Date: 12/21/20 Status: Ordered Vitamin D 05237 iu oral capsule 50,000 International_Units, By Mouth, [...]
--- OUTSIDE RECORDS SUMMARY | 2024-02-13 23:20 | XMS_ITS | Continuity of Care Document ---
Author Organization [facility] Address [address] [place] [address]- Care Team Providers Care Finisher Denture Name Role Phone Garret FORD, Yousif Salinas Primary Care Physician Encounter [facility] Date(s): 11/30/20 - 12/30/[address] [address] Attending Physician: Admvishnu, Willy Admitting Physician: AdmtrWilly Referring Physician: Admtr, Ar8 Allergies, Adverse Reactions, [...] Start Date: 08/16/20 Status: Ordered Vitamin D 13005 iu oral capsule 50,000 International_Units, By Mouth, [...]
--- OUTSIDE RECORDS SUMMARY | 2024-02-13 23:20 | XMS_ITS | Continuity of Care Document ---
Author Organization [facility] Address [address] [place] [address]- Care Team Providers Care Market Research Assistant Name Role Phone Not on Staff, PCP Primary Care Physician Unavail able Encounter [facility] Date(s): 09/24/23 - 10/24/[address] [address]- Allergies, Adverse Reactions, Alerts No Known Medication [...] 10/03/23 3:01:00 EDT, Route to Pharmacy Electronically, [facility], Partial fill upon patient request if the prescription is for a sc... Start Date: 10/03/23 Status: Ordered Tylenol 325 mg oral tablet 975 mg, 3, tablet, By Mouth, Every 8 hours, PRN, # 30 tablet, Refills 0, Tot. Refills 0, Maintenance, for pain, 10/03/23 3:01:00 EDT, Route to Pharmacy Electronically, [facility], Partial [...] Care Nurse Name: Junie Beck RN Position: [facility] RN Member Role: Primary Care Nurse Name: Not on Staff, PCP Position: [facility] Physician (General Medicine) Member Role: PCP Care Team Related Persons Name: DEE MOBLEY Address: home [address] [place] [id number] Name: MYRA TRUONG Address: home [address] [place] [address] Name: JOSH TRUONG Address: [place] [address] [place] [address]
--- OUTSIDE RECORDS SUMMARY | 2024-02-13 23:20 | XMS_ITS | Continuity of Care Document ---
Author Organization [facility] Address [address] [place] [address]- Care Team Providers Care Pi/Senior Research Associate Name Role Phone Yousif Combs MD Primary Care Physician [phone] [place] [facility] [place] 11/02/20 - 12/03/[address] [address] Attending Physician: Yousif Combs MD Admitting Physician: Yousif Combs MD Allergies, Adverse Reactions, Alerts Substance Reaction Severity Status Cats Active Medications Diflucan 150 mg oral tablet 1 tablet = 150 mg, By Mouth, Every week, One pill once per week for 6 months, # 4 tablet, 5 Refills, Acute 01/16/21 8:00:00 EDT, 08/06/20 16:42:00 EST, Tablet, [facility] [...] Start Date: 08/16/20 Status: Ordered Vitamin D 30815 iu oral capsule 50,000 International_Units, By Mouth, [...]
--- OUTSIDE RECORDS SUMMARY | 2024-02-13 23:20 | XMS_ITS | Continuity of Care Document ---
Author Organization [facility] Address [address] [place] [address]- Care Team Providers Care Delinquent Tax Collector Name Role Phone Yousif Combs MD Primary Care Physician [id number] Date[facility] 11/03/20 - 01/18/[address] [address]- Discharge Disposition: A-D/C Home Attending Physician: Yousif Combs MD Admitting Physician: Yousif Combs MD Referring Physician: Haylee Weber MD Allergies, Adverse Reactions, Alerts Substance Reaction Severity Status Cats Active Medications fluconazole 150 mg oral tablet 1 tablet = 150 mg, By Mouth, Once, Repeat dose if still having symptoms in 72 hours, # 2 tablet, 0 Refills, Soft Stop, 07/30/20 13:50:00 EST, Tablet, [facility], Partial fill upon patient request if the prescription is for a sched... Start Date: 07/30/20 Status: Ordered Probiotic Formula By Mouth, Daily, 0 Refills, Maintenance, 08/16/20 9:23:00 EST, Partial fill upon patient request ifthe prescription is for a schedule II opioid drug. Start Date: 08/16/20 Status: Ordered Vitamin D 57550 iu oral capsule 50,000 International_Units, By Mouth, [...]
--- OUTSIDE RECORDS SUMMARY | 2024-02-13 23:20 | XMS_ITS | Continuity of Care Document ---
Author Organization [facility] Address [address] [facility] [address] [place] [address]- Care Team Providers Care Farm Manager Name Role Phone Not on Staff, PCP Primary Care Physician Unavail able Encounter [facility] [place] Date(s): 03/12/23 - 04/11/23 [facility] [address] [facility] [address]th [address] [place] [address]- Allergies, Adverse Reactions, Alerts No Known Medication Allergies Substance Reaction Severity Status Cats Active Medications diclofenac 3% topical gel 1 application, Topically, 2 times a day, # 50 Gm, 0 Refills, Maintenance, 02/22/22 11:25:00 EDT, Gel, [facility], Partial fill upon patient request [...] tablet, 0 Refills, Maintenance, 03/12/23 13:53:00 EDT, [id number], Partial fill upon [...] Name: Junie Beck RN Position: [facility] ED RN W/OE and Tasks Member Role: Primary Care Nurse Name: Not on Staff, PCP Position: [facility] Physician (General Medicine) Member Role: PCP Care Team Related Persons Name: DEE MOBLEY Address: [address] [address] Name: MYRA TRUONG Address: [address] [address] Name: JOSH TRUONG Address: [address] [address]
--- OUTSIDE RECORDS SUMMARY | 2024-02-13 23:20 | XMS_ITS | Continuity of Care Document ---
Author Organization [facility] Address [address] [place] [address]- Care Team Providers Care Car Head Liner Installer Name Role Phone Garret FORD, Yousif Salinas Primary Care Physician Encounter [facility] Date(s): 07/27/20 - 08/26/[address] [address]- Allergies, Adverse Reactions, Alerts Substance Reaction Severity Status Cats Active Medications Diflucan 150 mg oral tablet 1 tablet = 150 mg, By Mouth, Every week, One pill once per week for 6 months, # 4 tablet, 5 Refills, Acute 01/16/21 8:00:00 EDT, 08/06/20 16:42:00 EST, Tablet, [facility], Partial fill upon patient request if the prescription is f... Start Date: 08/06/20 Stop Date: 01/16/21 Status: Ordered fluconazole 150 mg oral tablet 1 tablet = 150 mg, By Mouth, Once, Repeat dose if still having symptoms in 72 hours, # 2 tablet, 0 Refills, Soft Stop, 07/30/20 13:50:00 EST, Tablet, [facility], Partial fill upon patient request if the prescription is for a sched... Start Date: 07/30/20 Status: Ordered Probiotic Formula By Mouth, Daily, 0 Refills, Maintenance, 08/16/20 9:23:00 EST, Partial fill upon patient request ifthe prescription is for a schedule II opioid drug. Start Date: 08/16/20 Status: Ordered Vitamin D 44519 iu oral capsule 50,000 International_Units, By Mouth, [...]
--- OUTSIDE RECORDS SUMMARY | 2024-02-13 23:20 | XMS_ITS | Continuity of Care Document ---
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 Start Date: 10/03/23 Status: Ordered Tylenol 325 mg oral tablet 975 mg, 3, tablet, By Mouth, Every 8 hours, PRN, # 30 tablet, Refills 0, Tot. Refills 0, Maintenance, for pain, 10/03/23 3:01:00 EDT, Route to Pharmacy Electronically, [facility], Partial fill upon patient [...] Team Personnel Name: Mary Pastor RN Position: [facility] RN Member Role: Primary Care Nurse Name: Junie Beck RN Position: [facility] RN Member Role: Primary Care Nurse Name: Not on Staff, PCP Position: [facility] Physician (General Medicine) Member Role: PCP Care Team Related Persons Name: DEE MOBLEY Address: home [address] [place] [address] Name: MYRA TRUONG Address: [address] [place] [address] Name: JOSH TRUONG Address: [address] [address]
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
--- OUTSIDE RECORDS SUMMARY | 2024-02-13 23:20 | XMS_ITS | Continuity of Care Document ---
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] Most recent to oldest [Reference Range]: 1 Height 153 cm (01/02/23 10:00 AM) Weight 84.4 kg (01/02/23 10:00 AM) Pulse Rate [55-90 bpm] 92 bpm *H* (01/02/23 10:00 AM) Body Mass Index [18.5-24.99 kg/m2] 36.05 kg/m2 *>HHI* (01/02/23 10:00 AM) Blood Pressure [90-138/55-84 mm Hg] 117/ 81mm Hg (01/02/23 10:00 AM) Blood pressure sites Arm, right (01/02/23 10:00 AM) Weight Obtained Via Standing scale (01/02/23 10:00 AM) Social History Social History Type Response Smoking Status Never (less than 100 in lifetime) entered on: 07/30/20 Sex Note * Kassandra Hartmann MA: PERFORM, SIGN, VERIFY Event Display: Patient Education/Instruction Authored Date: [id number] [facility] *[facility] Clinical Summary Name CHRIS TRUONG Age 32 Years 1990 PCP Not on Staff, PCP PCP Phone Visit Date 01/02/2023 09:40:00 Additional Instructions: Scheduled Appointments?? Future Appointments ?No Future Appointments Scheduled Follow-Up Instructions ?? Diagnosis Medications: Please continue your medications until treatment is completed or stopped by your provider. Discuss any questions related to medications with your provider. Medications to Continue with No Changes These medications were not printed or sent to your pharmacy Acetaminophen (Tylenol 325 mg oral capsule) 3 capsule Oral every 6 hours as needed as needed for fever. Refills: 0. Next Dose: Diclofenac Topical (diclofenac 3% topical gel) 1 aleja Topically twice a day for 7 Days. Refills: 0. Next Dose: Fluconazole (Diflucan 150 mg oral tablet) 1 tab(s) Oral once. Refills: 0. Next Dose: Hydrocortisone Topical (hydrocortisone 1% topical cream) 1 aleja Topically twice a day. Use 1-2 timesper day for 3-4 weeks until follow up appointment. Refills: 1. Next Dose: Ibuprofen (ibuprofen 600 mg oral tablet) 1 tab(s) Oral every 6 hours. Refills: 0. Next Dose: Lidocaine Topical (lidocaine 5% topical film) 1 patch(es) Topically Daily as needed Pain , Mild. remove after 12 hours. Refills: 0. Next Dose: ValACYclovir (Valtrex 500 mg oral tablet) 1 tablet By Mouth PRN. Next Dose: Allergy Info:?? Cats Medications Given This Visit Future Orders ?No future orders Vital Signs Height 153 cm Weight 84.4 kg BMI 36.05 kg/m2 Blood Pressure 117 mm Hg/81 mm Hg Temperature Pulse Rate 92 bpm Respiratory Rate 02 Sat Mode of Delivery / You can now view a summary of your hospital visit from the comfort of your home through a free online portal called [employer]. [employer] is a website that allows you to securely view your medical information including discharge summary, medications and follow-up visits. ??You can alsosend a secure electronic message to your doctor???s office to request appointments, renew medications or just ask a question. You can enroll at [email or web address] or register during your next office visit. Disclaimer:?? The information provided is of a general nature and is intended to be used in conjunction with the recommendations and advice of your health care practitioner. ??Every effort has been made to ensure that the information provided is accurate and complete at the time it is provided to you however, as your needs change, or, as new ??information becomes available, different or additional instructions may be required. If you have questions, please consult with your primary care provider or pharmacist, as appropriate. ??This information is not intended to serve as substitution for assessment and evaluation by a qualified health care provider. If you do not have a primary care provider, you may find a [facility] provider by calling [facility] [employer] [facility] at [phone]. For information about the plan of care including goals and instructions for your diagnosis, please see the patient education orders section of this document. Patient Education Materials?? The content of this educational material or handout may have been modified, supplemented, or adapted from its original content and format to support your individualized medical care. Additional Provider Instructions: Pa request sent for S/A and CF. Pt seen by provider and will follow providers instructions. Patient Care team information Care Team Personnel Name: Mary Pastor RN Position: S RN Member Role: Primary Care Nurse Name: Junie Beck RN Position: S RN Member Role: Primary Care Nurse Name: Not on Staff, PCP Position: [facility] Physician (General Medicine) Member Role: PCP Care Team Related Persons Name: DEE MOBLEY Address: home [address] [place] [id number] Name: MYRA TRUONG Address: home [address] [place] [address] Name: JOSH TRUONG Address: home [address] [place] [address]
--- OUTSIDE RECORDS SUMMARY | 2024-02-13 23:20 | XMS_ITS | Continuity of Care Document ---
Author Organization [facility] Address [address], 4t [place] [address]- Care Team Providers Care Supervisor Bottle Machines Name Role Phone Yousif Combs MD Primary Care Physician Encounter [facility] Date(s): 07/05/21 - 08/07/21 [facility] [address]th [place] [address]- Attending Physician: Haylee Weber MD Referring Physician: Yousif Combs MD Allergies, Adverse Reactions, Alerts Substance Reaction Severity Status Cats Active Medications Diflucan 150 mg oral tablet See Instructions, Take 1 tablet today, then if symptoms persist take another tablet in 72 hours after first was taken., # 2 tablet, 0 Refills, Soft Stop, 07/08/21 15:21:00 EST, Tablet, [facility], Partial fill upon patient request... Start Date: 07/08/21 Status: Ordered fluconazole 150 mg oral tablet 1 tablet = 150 mg, By Mouth, Once, Repeat dose if still having symptoms in 72 hours, # 2 tablet, 0 Refills, Soft Stop, 07/30/20 13:50:00 EST, Tablet, [facility], Partial fill upon patient request if the prescription is for a sched... Start Date: 07/30/20 Status: Ordered hydrocortisone 1% topical cream 1 application, Topically, 2 times a day, Use 1-2 times per day for 3-4 weeks until follow up appointment, # 14 Gm, 1 Refills, Maintenance, 07/07/21 14:28:00 EST, Cream, [facility], Partial fill upon patient request [...] 07/07/21 14:24:00 EST, Route to Pharmacy Electronically, [facility], Partial fill upon patient request if the pr... Start Date: 07/07/21 Stop Date: 01/03/22 Status: Ordered Vitamin D 19431 iu oral capsule 50,000 International_Units, By Mouth, [...]
--- OUTSIDE RECORDS SUMMARY | 2024-02-13 23:20 | XMS_ITS | Continuity of Care Document ---
Author Organization [facility] Address [address] [place] [address]- Care Team Providers Care Systems Technologist Name Role Phone Not on Staff, PCP Primary Care Physician Unavail able Encounter [facility] Date(s): 08/28/23 - 09/27/[address] [address]- Allergies, Adverse Reactions, Alerts No Known Medication [...] Date: 09/27/23 Stop Date: 10/02/23 Status: Ordered Problem List Condition Confirmation Course [...] Nurse Name: Not on Staff, PCP Position: S Physician (General Medicine) Member Role: PCP Care Team Related Persons Name: DEE MOBLEY Address: home [address] [place] [address] Name: MYRA TRUONG Address: home [address] [place] [id number] Name: JOSH TRUONG Address: [address] [address]
--- OUTSIDE RECORDS SUMMARY | 2024-02-13 23:20 | XMS_ITS | Continuity of Care Document ---
Author Organization [facility] Address [address] [place] [address]- Care Team Providers Care Lead Ramp Service Man Name Role Phone Garret FORD, Yousif Salinas Primary Care Physician [phone] Encounter [facility] Date(s): 11/10/21 - 12/16/[address] [address]- Attending Physician: Not on Staff, Attending MD Allergies, Adverse Reactions, Alerts Substance Reaction Severity Status Cats Active Medications fluconazole 150 mg oral tablet 1 tablet = 150 mg, By Mouth, Once, epeat dose if still having symptoms in 72 hours, # 2 tablet, 0 Refills, Soft Stop, 10/04/21 16:27:00 EDT, [facility] Partial fill upon patient request if the prescription is for a schedule II opio... Start Date: 10/04/21 Status: Ordered hydrocortisone 1% topical cream 1 application, Topically, 2 times a day, Use 1-2 times per day for 3-4 weeks until follow up appointment, # 14 Gm, 1 Refills, Maintenance, 10/04/21 16:26:00 EDT, Cream, [facility], Partialfill upon patient request if the prescription is fo... Start Date: 10/04/21 Status: Ordered Valtrex 500 mg oral tablet 500 mg, 1, tablet, By Mouth, Daily, for 90 days, # 90 tablet, Refills 1, Tot. Refills 1, Acute 01/03/22 14:24:00 EDT, 07/07/21 14:24:00 EST, Route to Pharmacy Electronically, [facility], Partial fill upon [...]
--- OUTSIDE RECORDS SUMMARY | 2024-02-13 23:20 | XMS_ITS | Continuity of Care Document ---
Author Organization [facility] Address [address] [facility], 4t h Floor [address] [place] [address]- Care Team Providers Care Drilling Machine Operator Name Role Phone Not on Staff, PCP Primary Care Physician Unavail able [facility]counter [facility] Date(s): 05/08/23 - 06/07/23 [facility] [address], 4[address] [place] [address]- Allergies, Adverse Reactions, Alerts No Known Medication Allergies Substance Reaction Severity Status Cats Active Medications diclofenac 3% topical gel 1 application, Topically, 2 times a day, # 50 Gm, 0 Refills, Maintenance, 02/22/22 11:25:00 EDT, Gel, [facility], Partial fill upon patient request if the prescription is for a schedule II opioid drug., 1 application Topically 2 t... Start Date: 02/22/22 Stop Date: 03/01/22 Status: Ordered doxycycline hyclate 100 mg oral tablet 1 tablet = 100 mg, By Mouth, 2 times a day, START TWO DAYS BEFORE PROCEDURE . TAKE WITH FOOD, # 10 tablet, 0 Refills, Maintenance, 05/09[facility] Partial fill upon patient [...] Team Personnel Name: Mary Pastor RN Position: [facility] RN Member Role: Primary Care Nurse Name: Kiran RN, Junie Position: S RN Member Role: Primary Care Nurse Name: Not on Staff, PCP Position: [facility] Physician (General Medicine) Member Role: PCP Care Team Related Persons Name: DEE MOBLEY Address: [address] [address] Name: MYRA TRUONG Address: [address] [address] Name: JOSH TRUONG Address: [address] [address]
--- OUTSIDE RECORDS SUMMARY | 2024-02-13 23:20 | XMS_ITS | Continuity of Care Document ---
Author Organization [facility] Address [address] [place] [address]- Care Team Providers Care Gandy Dancer Name Role Phone Garret FORD, Yousif Salinas Primary Care Physician Encounter [facility] [place] Date(s): 03/30/22 - 04/29/[address] [address]- Allergies, Adverse Reactions, Alerts Substance Reaction Severity Status Cats Active Medications diclofenac 3% topical gel 1 application, Topically, 2 times a day, # 50 Gm, 0 Refills, Maintenance, 02/22/22 11:25:00 EDT, Gel, [facility], Partial fill upon patient request if the prescription is for a schedule II opioid drug., 1 application Topically 2 t... Start Date: 02/22/22 Stop Date: 03/01/22 Status: Ordered fluconazole 150 mg oral tablet 1 tablet = 150 mg, By Mouth, Once, epeat dose if still having symptoms in 72 hours, # 2 tablet, 0 Refills, Soft Stop, 10/04/21 16:27:00 EDT, Tablet, [facility], Partial fill upon patient request if the prescription is for a schedule II opio... Start Date: 10/04/21 Status: Ordered hydrocortisone 1% topical cream 1 application, Topically, 2 times a day, Use 1-2 times per day for 3-4 weeks until follow up appointment, # 14 Gm, 1 Refills, Maintenance, 10/04/21 16:26:00 EDT, Cream, [facility], Partialfill upon patient request if the prescription is fo... Start Date: 10/04/21 Status: Ordered ibuprofen 600 mg oral tablet 600 mg, 1, tablet, By Mouth, Every 6 hours, # 50 tablet, Refills 0, Tot. Refills 0, Maintenance, 04/27/22 22:55:00 EST, [id number] Partial fill upon patientrequest if the prescription is for a schedule II op... Start Date: 04/27/22 Status: Ordered lidocaine 5% topical film 1 patch, Topically, Daily, PRN Pain , Mild, remove after 12 hours, # 13 each, 0 Refills, Maintenance, 04/27/22 22:48:00 EST, Film, [facility], Partial fill upon patient request if the prescription is for a schedule II opioid drug., 1 patch... Start Date: 04/27/22 Status: Ordered Tylenol 325 mg oral capsule 3 capsule = 975 mg, By Mouth, Every 6 hours, PRN as needed for fever, # 60 capsule, 0 Refills, Maintenance, 04/27/22 22:55:00 EST, Capsule, [facility]/pharmacy #[id number], Partial fill upon patient [...] Care Nurse Name: Yousif Combs MD Position: [facility] Physician (General Medicine) Member Role: PCP Address: Address: [address] [place] [address], [address] [facility] [place], [place] [address] Care Team Related Persons Name: DEE MOBLEY Address: home [address] [place] [address] Name: MYRA TRUONG Address: home [address] [place] [address] Name: JOSH TRUONG Address: home [address] [place] [address]
--- OUTSIDE RECORDS SUMMARY | 2024-02-13 23:20 | XMS_ITS | Continuity of Care Document ---
Author Organization [facility] Address [address] [place] [address]- Care Team Providers Care Breakfast Manager Name Role Phone Garret FORD, Yousif Salinas Primary Care Physician Encounter [facility] [place] Date(s): 04/18/22 - 05/18/[address] [address]- Attending Physician: Willy Taylor Admitting Physician: AdmWilly mares Referring Physician: Willy Taylor Allergies, Adverse Reactions, Alerts Substance Reaction Severity Status Cats Active Medications diclofenac 3% topical gel 1 application, Topically, 2 times a day, # 50 Gm, 0 Refills, Maintenance, 02/22/22 11:25:00 EDT, Gel, [facility], Partial fill upon patient request if the prescription is for a schedule II opioid drug., 1 application Topically 2 t... Start Date: 02/22/22 Stop Date: 03/01/22 Status: Ordered Diflucan 150 mg oral tablet 1 tablet = 150 mg, By Mouth, Once, # 1 tablet, 0 Refills, Soft Stop, 04/30/22 12:37:00 EST, Tablet,[facility], Partial fill upon patient request if the prescription is for a schedule II opioid drug., 153, cm, 04/27/22 18:27:00 EST, Height,... Start Date: 04/30/22 Status: Ordered hydrocortisone 1% topical cream 1 application, Topically, 2 times a day, Use 1-2 times per day for 3-4 weeks until follow up appointment, # 14 Gm, 1 Refills, Maintenance, 10/04/21 16:26:00 EDT, Cream, [facility], Partialfill upon patient request if the prescription is fo... Start Date: 10/04/21 Status: Ordered ibuprofen 600 mg oral tablet 600 mg, 1, tablet, By Mouth, Every 6 hours, # 50 tablet, Refills 0, Tot. Refills 0, Maintenance, 04/27/22 22:55:00 EST, Route to Pharmacy Electronically, [facility]/pharmacy #[id number], Partial fill upon patientrequest if the prescription is for a schedule II op... Start Date: 04/27/22 Status: Ordered lidocaine 5% topical film 1 patch, Topically, Daily, PRN Pain , Mild, remove after 12 hours, # 13 each, 0 Refills, Maintenance, 04/27/22 22:48:00 EST, Film, [facility], Partial fill upon patient request if the prescription is for a schedule II opioid drug., 1 patch... Start Date: 04/27/22 Status: Ordered Tylenol 325 mg oral capsule 3 capsule = 975 mg, By Mouth, Every 6 hours, PRN as needed for fever, # 60 capsule, 0 Refills, Maintenance, 04/27/22 22:55:00 EST, Capsule, [facility]/pharmacy #[id number], Partial fill upon patient [...] Care Nurse Name: Junie Beck RN Position: [facility] RN W/OE and Tasks Member Role: Primary Care Nurse Name: Yousif Combs MD Position: [facility] Physician (General Medicine) Member Role: PCP Address: Address: [address] [place] [address], [address] [place] [address]- Care Team Related Persons Name: DEE MOBLEY Address: [place] [phone] Name: MYRA TRUONG Address: home [address] [place], [place] [id number] Name: JOSH TRUONG Address: [place] [address]
--- OUTSIDE RECORDS SUMMARY | 2024-02-13 23:20 | XMS_ITS | Continuity of Care Document ---
Author Organization [facility] Address [address] [facility], 4t h Floor [address] [place] [address]- Care Team Providers Care Shift Manager Name Role Phone Garret FODR, Yousif Salinas Primary Care Physician Encounter [facility] [place] Date(s): 02/27/23 - 03/29/23 [facility] Rep[facility] [address] [facility], 4th Floor [address] [place] [email or web address] Allergies, Adverse Reactions, Alerts No Known Medication Allergies Substance Reaction Severity Status Cats Active Medications diclofenac 3% topical gel 1 application, Topically, 2 times a day, # 50 Gm, 0 Refills, Maintenance, 02/22/22 11:25:00 EDT, Gel, [facility], Partial fill upon patient request if the prescription is for a schedule II opioid drug., 1 application Topically 2 t... Start Date: 02/22/22 Stop Date: 03/01/22 Status: Ordered doxycycline hyclate 100 mg oral tablet 1 tablet = 100 mg, By Mouth, 2 times a day, START TWO DAYS BEFORE PROCEDURE. TAKE WITH FOOD, # 10 tablet, 0 Refills, Maintenance, 03/12/23 13:53:00 EDT, [facility], Partial fill upon [...] Team Personnel Name: Mary Pastor RN Position: [facility] RN Member Role: Primary Care Nurse Name: Junie Beck RN Position: S RN Member Role: Primary Care Nurse Name: Yousif Combs MD Position: [facility] Physician - Primary Care Member Role: PCP Address: Address: [address] [place] [address], [address] [place] [address]- Care Team Related Persons Name: DEE MOBLEY Address: home [address] [place] [address] Name: MYRA TRUONG Address: [address] [place] [address] Name: JOSH TRUONG Address: [address] [place] [address]
--- OUTSIDE RECORDS SUMMARY | 2024-02-13 23:20 | XMS_ITS | Continuity of Care Document ---
Author Organization [facility] Address [address] [place] [address]- Care Team Providers Care Data Recovery Planner Name Role Phone Not on Staff, PCP Primary Care Physician Unavail able Encounter [facility] Date(s): 12/20/22 - 01/19/[address] [address]- Allergies, Adverse Reactions, Alerts Substance Reaction Severity Status Cats Active Medications diclofenac 3% topical gel 1 application, Topically, 2 times a day, # 50 Gm, 0 Refills, Maintenance, 02/22/22 11:25:00 EDT, Gel, [facility], Partial fill upon [...] 1 Refills, Maintenance, 10/04/21 16:26:00 EDT, Cream, [facility], Partialfill upon patient request if the prescription is fo... Start Date: 10/04/21 Status: Ordered lidocaine 5% topical film 1 patch, Topically, Daily, PRN Pain , Mild, remove after 12 hours, # 13 each, 0 Refills, Maintenance, 04/27/22 22:48:00 EST, Film, [facility]278, Partial fill upon patient [...] Personnel Name: Adria Garcia RN, Mary Position: [facility] RN Member Role: Primary Care Nurse Name: Junie Beck RN Position: [facility] RN Member Role: Primary Care Nurse Name: Not on Staff, PCP Position: [facility] Physician (General Medicine) Member Role: PCP Care Team Related Persons Name: DEE MOBLEY Address: home [address] [place] [address] Name: MYRA TRUONG Address: [address] [place] [address] Name: JOSH TRUONG Address: [address] [place] [address]
--- OUTSIDE RECORDS SUMMARY | 2024-02-13 23:20 | XMS_ITS | Continuity of Care Document ---
Author Organization [facility] Address [address] [place] [address]- Care Team Providers Care Quality Assurance Supervisor Chassis Name Role Phone Garret FROD, Yousif Salinas Primary Care Physician [place] [facility] Date(s): 03/21/21 - 04/20/21 [facility] [address] [address]- Allergies, Adverse Reactions, Alerts Substance Reaction Severity Status Cats Active Medications fluconazole 150 mg oral tablet 1 tablet = 150 mg, By Mouth, Once, Repeat dose if still having symptoms in 72 hours, # 2 tablet, 0 Refills, Soft Stop, 07/30/20 13:50:00 EST, Tablet, [facility], Partial fill upon patient request if the prescription is for a sched... Start Date: 07/30/20 Status: Ordered Probiotic Formula By Mouth, Daily, 0 Refills, Maintenance, 08/16/20 9:23:00 EST, Partial fill upon patient request ifthe prescription is for a schedule II opioid drug. Start Date: 08/16/20 Status: Ordered Vitamin D 77828 iu oral capsule 50,000 International_Units, By Mouth, [...]
--- OUTSIDE RECORDS SUMMARY | 2024-02-13 23:20 | XMS_ITS | Continuity of Care Document ---
Author Organization [facility] Address [address] [place] [address]- Care Team Providers Care Parts Runner Name Role Phone Not on Staff, PCP Primary Care Physician Unavail able [facility]counter [facility] Date(s): 06/21/23 - 08/12/[address] [address]- Attending Physician: Not on Staff, Attending MD Allergies, Adverse Reactions, Alerts No Known Medication Allergies Substance Reaction Severity Status Cats Active Medications diclofenac 3% topical gel 1 application, Topically, 2 times a day, # 50 Gm, 0 Refills, Maintenance, 02/22/22 11:25:00 [facility] [...] tablet, 0 Refills, Maintenance, 05/09/23 15:08:00 EST, [facility], Partial fill upon [...] Personnel Name: Adria Garcia RN, Mary Position: [facility] RN Member Role: Primary Care Nurse Name: Junie Beck RN Position: [facility] RN Member Role: Primary Care Nurse Name: Not on Staff, PCP Position: [facility] Physician (General Medicine) Member Role: PCP Care Team Related Persons Name: AKASHPieroDEE Address: [address] [address] Name: MYRA TRUONG Address: [address] [address] Name: JOSH TRUONG Address: [address] [address]
--- OUTSIDE RECORDS SUMMARY | 2024-02-13 23:20 | XMS_ITS | Continuity of Care Document ---
Author Organization [facility] Address [address] [place] [address]- Care Team Providers Care Sales Trainer Name Role Phone Garret FORD, Yousif Salinas Primary Care Physician [phone] Encounter [facility] [place] Date(s): 03/21/21 - 04/20/21 [facility] [address] [address]- Allergies, Adverse Reactions, Alerts Substance Reaction Severity Status Cats Active Medications fluconazole 150 mg oral tablet 1 tablet = 150 mg, By Mouth, Once, Repeat dose if still having symptoms in 72 hours, # 2 tablet, 0 Refills, Soft Stop, 07/30/20 13:50:00 EST, Tablet, [facility], Partial fill upon patient request if the prescription is for a sched... Start Date: 07/30/20 Status: Ordered Probiotic Formula By Mouth, Daily, 0 Refills, Maintenance, 08/16/20 9:23:00 EST, Partial fill upon patient request ifthe prescription is for a schedule II opioid drug. Start Date: 08/16/20 Status: Ordered Vitamin D 09047 iu oral capsule 50,000 International_Units, By Mouth, [...]
--- OUTSIDE RECORDS SUMMARY | 2024-02-13 23:20 | XMS_ITS | Continuity of Care Document ---
Author Organization [facility] Address [address] [place] [address]- Care Team Providers Care Instructor Physical Name Role Phone Garret FORD, Yousif Salinas Primary Care Physician [phone] Encounter [facility] Date(s): 07/20/20 - 08/19/[address] [address]- Allergies, Adverse Reactions, Alerts Substance Reaction Severity Status Cats Active Medications Diflucan 150 mg oral tablet 1 tablet = 150 mg, By Mouth, Every week, One pill once per week for 6 months, # 4 tablet, 5 Refills, Acute 01/16/21 8:00:00 EDT, 08/06/20 16:42:00 EST, Tablet, [facility], Partial fill upon patient request if the prescription is f... Start Date: 08/06/20 Stop Date: 01/16/21 Status: Ordered fluconazole 150 mg oral tablet 1 tablet = 150 mg, By Mouth, Once, Repeat dose if still having symptoms in 72 hours, # 2 tablet, 0 Refills, Soft Stop, 07/30/20 13:50:00 EST, Tablet, [facility], Partial fill upon patient request if the prescription is for a sched... Start Date: 07/30/20 Status: Ordered Probiotic Formula By Mouth, Daily, 0 Refills, Maintenance, 08/16/20 9:23:00 EST, Partial fill upon patient request ifthe prescription is for a schedule II opioid drug. Start Date: 08/16/20 Status: Ordered Vitamin D 10955 iu oral capsule 50,000 International_Units, By Mouth, [...]
--- OUTSIDE RECORDS SUMMARY | 2024-02-13 23:21 | XMS_ITS | Continuity of Care Document ---
Author Organization [facility] Address [address] [place] [address]- Care Team Providers Care Trans Router Name Role Phone Not on Staff, PCP Primary Care Physician Unavail able Encounter [facility] Date(s): 06/14/23 - 07/14/[address] [address]- Allergies, Adverse Reactions, Alerts No Known Medication Allergies Substance Reaction Severity Status Cats Active Medications diclofenac 3% topical gel 1 application, Topically, 2 times a day, # 50 Gm, 0 Refills, Maintenance, 02/22/22 11:25:00 [facility] [...] 10 tablet, 0 Refills, Maintenance, [facility] Partial fill upon patient request if the [...] Team Personnel Name: Mary Pastor RN Position: [facility] RN Member Role: Primary Care Nurse Name: Kiran HERMAN, Junie Position: [facility] RN Member Role: Primary Care Nurse Name: Not on Staff, PCP Position: [facility] Physician (General Medicine) Member Role: PCP Care Team Related Persons Name: DEE MOBLEY Address: [address] [address] Name: MYRA TRUONG Address: [place] [id number] Name: JOSH TRUONG Address: [place] [phone]
--- OUTSIDE RECORDS SUMMARY | 2024-02-13 23:21 | XMS_ITS | Continuity of Care Document ---
Author Organization [facility] Address [address] [place] [address]- Care Team Providers Care Sprue Cutting Press Operator Name Role Phone Garret FORD, Yousif Salinas Primary Care Physician [phone] Encounter [facility] [place] Date(s): 05/02/21 - 06/01/[address] [address]- Attending Physician: Willy Taylor Admitting Physician: AdmWilly mares Referring Physician: AdmtrWilly Allergies, Adverse Reactions, Alerts Substance Reaction Severity Status Cats Active Medications fluconazole 150 mg oral tablet 1 tablet = 150 mg, By Mouth, Once, Repeat dose if still having symptoms in 72 hours, # 2 tablet, 0 Refills, Soft Stop, 07/30/20 13:50:00 EST, Tablet, [facility], Partial fill upon patient request if the prescription is for a sched... Start Date: 07/30/20 Status: Ordered Probiotic Formula By Mouth, Daily, 0 Refills, Maintenance, 08/16/20 9:23:00 EST, Partial fill upon patient request ifthe prescription is for a schedule II opioid drug. Start Date: 08/16/20 Status: Ordered Vitamin D 23945 iu oral capsule 50,000 International_Units, By Mouth, [...]
--- OUTSIDE RECORDS SUMMARY | 2024-02-13 23:21 | XMS_ITS | Continuity of Care Document ---
Author Organization [facility] Address [address] [facility], 4t [place] [address]- Care Team Providers Care Metal Sprayer Machined Parts Name Role Phone Yousif Combs MD Primary Care Physician Encounter [facility] [place] Date(s): 09/22/20 - 01/20/21 [facility] [address] [facility], 4th [place] [address]- Attending Physician: Haylee Weber MD Admitting Physician: Haylee Weber MD Referring Physician: Yousif [...] Start Date: 08/16/20 Status: Ordered Vitamin D 55662 iu oral capsule 50,000 International_Units, By Mouth, [...]
--- OUTSIDE RECORDS SUMMARY | 2024-02-13 23:21 | XMS_ITS | Continuity of Care Document ---
Author Organization [facility] Address [address] [place] [address]- Care Team Providers Care Field Crop Harvest Worker Name Role Phone Garret FORD, Yousif Salinas Primary Care Physician Encounter [facility] [place] Date(s): 04/28/22 - 05/28/[address] [address] Allergies, Adverse Reactions, Alerts Substance Reaction Severity Status Cats Active Medications diclofenac 3% topical gel 1 application, Topically, 2 times a day, # 50 Gm, 0 Refills, Maintenance, 02/22/22 11:25:00 [facility] request if the prescription is for a schedule II opioid drug., 1 application Topically 2 t... Start Date: 02/22/22 Stop Date: 03/01/22 Status: Ordered Diflucan 150 mg oral tablet 1 tablet = 150 mg, By Mouth, Once, # 1 tablet, 0 Refills, Soft Stop, 04/30/22 12:37:00 EST, Tablet,[facility], Partial fill upon patient request if the prescription is for a schedule II opioid drug., 153, cm, 04/27/22 18:27:00 EST, Height,... Start Date: 04/30/22 Status: Ordered hydrocortisone 1% topical cream 1 application, Topically, 2 times a day, Use 1-2 times per day for 3-4 weeks until follow up appointment, # 14 Gm, 1 Refills, Maintenance, 10/04/21 16:26:00 EDT, Cream, [facility], Partialfill upon patient request if the prescription is fo... Start Date: 10/04/21 Status: Ordered ibuprofen 600 mg oral tablet 600 mg, 1, tablet, By Mouth, Every 6 hours, # 50 tablet, Refills 0, Tot. Refills 0, Maintenance, 04/27/22 22:55:00 EST, [id number] Partial fill upon patientrequest if the prescription is for a schedule II op... Start Date: 04/27/22 Status: Ordered lidocaine 5% topical film 1 patch, Topically, Daily, PRN Pain , Mild, remove after 12 hours, # 13 each, 0 Refills, Maintenance, 04/27/22 22:48:00 EST, Film, [facility], Partial fill upon patient request if the prescription is for a schedule II opioid drug., 1 patch... Start Date: 04/27/22 Status: Ordered Tylenol 325 mg oral capsule 3 capsule = 975 mg, By Mouth, Every 6 hours, PRN as needed for fever, # 60 capsule, 0 Refills, Maintenance, 04/27/22 22:55:00 EST, [facility]apsule[id number] Partial fill upon patient request [...] Team Personnel Name: Mary Pastor RN Position: [facility] RN Member Role: Primary Care Nurse Name: Junie Beck RN Position: S RN Member Role: Primary Care Nurse Name: Yousif Combs MD Position: [facility] Physician (General Medicine) Member Role: PCP Address: Address: [address] [place] [address], [address] [facility] [place] [address] [place] Care Team Related Persons Name: DEE MOBLEY Address: home [address] [place] [address] Name: MYRA TRUONG Address: [address] [place] [address] Name: JOSH TRUONG Address: [address] [place] [address]
--- OUTSIDE RECORDS SUMMARY | 2024-02-13 23:21 | XMS_ITS | Continuity of Care Document ---
Author Organization [facility] Address [address], 4t [address] [place] [address]- Care Team Providers Care Cpa Tax Name Role Phone Not on Staff, PCP Primary Care Physician Unavail able [place] [facility] [place] [facility] [address], 4th [address] [place] [address]- Attending Physician: Willy Taylor Admitting Physician: Willy Taylor Referring Physician: AdmtrWilly Allergies, Adverse Reactions, Alerts No Known Medication Allergies Substance Reaction Severity Status Cats Active Medications diclofenac 3% topical gel 1 application, Topically, 2 times a day, # 50 Gm, 0 Refills, Maintenance, 02/22/22 11:25:00 EDT, Gel, [facility], Partial fill upon patient [...] tablet, 0 Refills, Maintenance, 05/09/23 15:08:00 EST, [id number], Partial fill upon patient request if the prescription is for a rylan... Start Date: 05/09/23 Status: Ordered Valtrex 500 mg oral tablet 500 mg, 1, tablet, By Mouth, 2 times a day, for 3 days, # 6 tablet, Refills 3, Tot. Refills 3, Acute 06/26/23 14:24:00 EST, 06/14/23 14:24:00 EST, Route to Pharmacy Electronically, [facility], Partial fill upon patient [...] Name: Mary Pastor RN Position: [facility] RN Member Role: Primary Care Nurse Name: Junie Beck RN Position: [facility] ED RN W/OE and Tasks Member Role: Primary Care Nurse Name: Not on Staff, PCP Position: [facility] Physician (General Medicine) Member Role: PCP Care Team Related Persons Name: DEE MOBLEY Address: home [address] [place] [address] Name: MYRA TRUONG Address: home [address] [place] [address] Name: JOSH TRUONG Address: home [address] [place] [address]
--- OUTSIDE RECORDS SUMMARY | 2024-02-13 23:21 | XMS_ITS | Continuity of Care Document ---
Author Organization [facility] Address [address] [place] [address]- Care Team Providers Care Supervisor Asbestos Removal Name Role Phone Garret FORD, Yousif Salinas Primary Care Physician [place] [facility] [place] - 11/18/[address] [address]- Attending Physician: Not on Staff, Attending MD Allergies, Adverse Reactions, Alerts Substance Reaction Severity Status Cats Active Medications Diflucan 150 mg oral tablet 1 tablet = 150 mg, By Mouth, Every week, One pill once per week for 6 months, # 4 tablet, 5 Refills, Acute 01/16/21 8:00:00 EDT, 08/06/20 16:42:00 EST, Tablet, [facility], Partial fill upon patient request if the prescription is f... Start Date: 08/06/20 Stop Date: 01/16/21 Status: Ordered fluconazole 150 mg oral tablet 1 tablet = 150 mg, By Mouth, Once, Repeat dose if still having symptoms in 72 hours, # 2 tablet, 0 Refills, Soft Stop, 07/30/20 13:50:00 EST, Tablet, [facility], Partial fill upon patient request if the prescription is for a sched... Start Date: 07/30/20 Status: Ordered Probiotic Formula By Mouth, Daily, 0 Refills, Maintenance, 08/16/20 9:23:00 EST, Partial fill upon patient request ifthe prescription is for a schedule II opioid drug. Start Date: 08/16/20 Status: Ordered Vitamin D 61400 iu oral capsule 50,000 International_Units, By Mouth, [...]
--- OUTSIDE RECORDS SUMMARY | 2024-02-13 23:21 | XMS_ITS | Continuity of Care Document ---
Author Organization [facility] Address [address] [place] [address]- Care Team Providers Care Carry Out Clerk And Shelf Stocker Name Role Phone Garret FORD, Yousif Salinas Primary Care Physician En[place] [facility] [place] Date(s): 12/15/20 - 01/14/[address] [address]- Allergies, Adverse Reactions, Alerts Substance Reaction Severity Status Cats Active Medications Diflucan 150 mg oral tablet 1 tablet = 150 mg, By Mouth, Every week, One pill once per week for 6 months, # 4 tablet, 5 Refills, Acute 01/16/21 8:00:00 EDT, 08/06/20 16:42:00 EST, Tablet, [facility], Partial fill upon patient request if the prescription is f... Start Date: 08/06/20 Stop Date: 01/16/21 Status: Ordered fluconazole 150 mg oral tablet 1 tablet = 150 mg, By Mouth, Once, Repeat dose if still having symptoms in 72 hours, # 2 tablet, 0 Refills, Soft Stop, 07/30/20 13:50:00 EST, Tablet, [facility], Partial fill upon patient request if the prescription is for a sched... Start Date: 07/30/20 Status: Ordered Probiotic Formula By Mouth, Daily, 0 Refills, Maintenance, 08/16/20 9:23:00 EST, Partial fill upon patient request ifthe prescription is for a schedule II opioid drug. Start Date: 08/16/20 Status: Ordered Vitamin D 68410 iu oral capsule 50,000 International_Units, By Mouth, [...]
--- OUTSIDE RECORDS SUMMARY | 2024-02-13 23:21 | XMS_ITS | Continuity of Care Document ---
Author Organization [facility] Address [address] [place] [address]- Care Team Providers Care Mercerizer Name Role Phone Garret FORD, Yousif Salinas Primary Care Physician [phone] [place] [facility] [place] - 12/23/[address] [address] Allergies, Adverse Reactions, Alerts Substance Reaction Severity Status Cats Active Medications Diflucan 150 mg oral tablet 1 tablet = 150 mg, By Mouth, Every week, One pill once per week for 6 months, # 4 tablet, 5 Refills, Acute 01/16/21 8:00:00 EDT, 08/06/20 16:42:00 EST, Tablet, [facility], Partial fill upon patient request if the prescription is f... Start Date: 08/06/20 Stop Date: 01/16/21 Status: Ordered fluconazole 150 mg oral tablet 1 tablet = 150 mg, By Mouth, Once, Repeat dose if still having symptoms in 72 hours, # 2 tablet, 0 Refills, Soft Stop, 07/30/20 13:50:00 EST, Tablet, [facility], Partial fill upon patient request if the prescription is for a sched... Start Date: 07/30/20 Status: Ordered Probiotic Formula By Mouth, Daily, 0 Refills, Maintenance, 08/16/20 9:23:00 EST, Partial fill upon patient request ifthe prescription is for a schedule II opioid drug. Start Date: 08/16/20 Status: Ordered Vitamin D 21834 iu oral capsule 50,000 International_Units, By Mouth, [...]
--- OUTSIDE RECORDS SUMMARY | 2024-02-13 23:21 | XMS_ITS | Continuity of Care Document ---
Author Organization [facility] Address [address] [facility], 4t [place] [address]- Care Team Providers Care Sheet Metal Roofer Name Role Phone Yousif Combs MD Primary Care Physician [id number] Date(s): 12/16/20 - [facility]/20/[facility] [address], 4th [place] [address]- Attending Physician: Haylee Weber MD Admitting Physician: Haylee Weber MD Referring Physician: Yousif Combs MD Allergies, Adverse Reactions, Alerts Substance Reaction Severity Status Cats Active Medications fluconazole 150 mg oral tablet 1 tablet = 150 mg, By Mouth, Once, Repeat dose if still having symptoms in 72 hours, # 2 tablet, 0 Refills, Soft Stop, 07/30/20 13:50:00 EST, Tablet, [facility], Partial fill [...] 03/19/21 13:52:00 EDT, Route to Pharmacy Electronically, [id number], Partial fill upon patient request if the prescr... Start Date: 03/19/21 Stop Date: 03/22/21 Status: Ordered Vitamin D 69499 iu oral capsule 50,000 International_Units, By Mouth, [...]
--- OUTSIDE RECORDS SUMMARY | 2024-02-13 23:21 | XMS_ITS | Continuity of Care Document ---
Author Organization [facility] Address [address] [place] [address]- Care Team Providers Care Therapeutic Dietitian Name Role Phone Garret FORD, Yousif Salinas Primary Care Physician [phone] Encounter [facility] Date(s): 08/03/20 - 09/02/[address] [address]- Allergies, Adverse Reactions, Alerts Substance Reaction Severity [...] Start Date: 08/16/20 Status: Ordered Vitamin D 76485 iu oral capsule 50,000 International_Units, By Mouth, [...]
--- OUTSIDE RECORDS SUMMARY | 2024-02-13 23:21 | XMS_ITS | Continuity of Care Document ---
Author Organization [facility] Address [address] [facility], [address]t [place] [address]- Care Team Providers Care Medical Coding Specialist Name Role Phone Garret FORD, Yousif Salinas Primary Care Physician [phone] [id number] Date(s): 02/18/21 - 03/20/21 [facility] [address] [facility] [facility], 4th Floor [place], [place] [address] Attending Physician: Willy Taylor Admitting Physician: AdmWilly [...] 03/19/21 13:52:00 EDT, Route to Pharmacy Electronically, [facility] [id number], Partial fill upon patient request if the prescr... Start Date: 03/19/21 Stop Date: 03/22/21 Status: Ordered Vitamin D 97031 iu oral capsule 50,000 International_Units, By Mouth, [...]
--- OUTSIDE RECORDS SUMMARY | 2024-02-13 23:21 | XMS_ITS | Continuity of Care Document ---
Author Organization [facility] Address [address] [place] [address]- Care Team Providers Care Middle School Coach Name Role Phone Not on Staff, PCP Primary Care Physician Unavail able Encounter [facility] Date(s): 06/14/23 - [facility] [address] [address]- Attending Physician: Not on Staff, Attending MD [...] Not on Staff, PCP Position: [facility] Physician (General Medicine) Member Role: PCP Care Team Related Persons Name: DEE MOBLEY Address: home [address] [place] [address] Name: MYRA TRUONG Address: [address] [place] [address] Name: JOSH TRUONG Address: [address] [place] [address]
--- OUTSIDE RECORDS SUMMARY | 2024-02-13 23:21 | XMS_ITS | Continuity of Care Document ---
Author Organization [facility] Address [address] [place] [address]- Care Team Providers Care Rental Clerk Tool And Equipment Name Role Phone Garret FORD, Yousif Salinas Primary Care Physician [phone] [place] [facility] [place]/22 - 07/02/[address] [address]- Attending Physician: Not on Staff, Attending MD Allergies, Adverse Reactions, Alerts Substance Reaction Severity Status Cats Active Medications diclofenac 3% topical gel 1 application, Topically, 2 times a day, # 50 Gm, 0 Refills, Maintenance, 02/22/22 11:25:00 EDT, Gel, [facility], Partial fill upon patient request if the prescription is for a schedule II opioid drug., 1 application Topically 2 t... Start Date: 02/22/22 Stop Date: 03/01/22 Status: Ordered Diflucan 150 mg oral tablet 1 tablet = 150 mg, By Mouth, Once, # 1 tablet, 0 Refills, Soft Stop, 04/30/22 12:37:00 EST, [facility], Partial fill upon patient request if the prescription is for a schedule II opioid drug., 153, cm, 04/27/22 18:27:00 EST, Height,... Start Date: 04/30/22 Status: Ordered hydrocortisone 1% topical cream 1 application, Topically, 2 times a day, Use 1-2 times per day for 3-4 weeks until follow up appointment, # 14 Gm, 1 Refills, Maintenance, 10/04/21 16:26:00 EDT, Cream, [facility], Partialfill upon patient request if the prescription is fo... Start Date: 10/04/21 Status: Ordered ibuprofen 600 mg oral tablet 600 mg, 1, tablet, By Mouth, Every 6 hours, # 50 tablet, Refills 0, Tot. Refills 0, Maintenance, 04/27/22 22:55:00 EST, [id number] Partial fill upon patientrequest if the prescription is for a schedule II op... Start Date: 04/27/22 Status: Ordered lidocaine 5% topical film 1 patch, Topically, Daily, PRN Pain , Mild, remove after 12 hours, # 13 each, 0 Refills, Maintenance, 04/27/22 22:48:00 EST, Film, [id number], Partial fill upon patient request if the prescription is for a schedule II opioid drug., 1 patch... Start Date: 04/27/22 Status: Ordered Tylenol 325 mg oral capsule 3 capsule = 975 mg, By Mouth, Every 6 hours, PRN as needed for fever, # 60 capsule, 0 Refills, Maintenance, 04/27/22 22:55:00 EST, [facility]apsule[id number] Partial fill upon [...] Care Nurse Name: Yousif Combs MD Position: [facility] Physician (General Medicine) Member Role: PCP Address: Address: [address] [place] [address], [address] [place] [address]- [place] Care Team Related Persons Name: DEE MOBLEY Address: home [address] [place] [address] Name: MYRA TRUONG Address: home [address] [place] [address] Name: JOSH TRUONG Address: [place] [address] [place] [address]
--- OUTSIDE RECORDS SUMMARY | 2024-02-13 23:21 | XMS_ITS | Continuity of Care Document ---
Author Organization [facility] Address [address] [facility], 4t [address] [place] [address]- Care Team Providers Care Commercial Parts Professional Name Role Phone Not on Staff, PCP Primary Care Physician Unavail able En[place] [facility] [place] Date(s): 03/19/23 - 04/18/23 [facility] [address] [facility] [address], 4th [address] [place] [address]- Attending Physician: Willy Taylor Admitting Physician: Willy Taylor Referring Physician: AdmtrWilly Allergies, Adverse Reactions, Alerts No Known Medication Allergies Substance Reaction Severity Status Cats Active Medications diclofenac 3% topical gel 1 application, Topically, 2 times a day, # 50 Gm, 0 Refills, Maintenance, 02/22/22 11:25:00 EDT, [facility], Partial fill upon patient request [...] tablet, 0 Refills, Maintenance, 03/12/23 13:53:00 EDT, [id number], Partial fill upon [...] Team Personnel Name: Mary Pastor RN Position: [facility] RN Member Role: Primary Care Nurse Name: Junie Beck RN Position: [facility] ED RN W/OE and Tasks Member Role: Primary Care Nurse Name: Not on Staff, PCP Position: [facility] Physician (General Medicine) Member Role: PCP Care Team Related Persons Name: AKASHPiero DEE Address: home [address] [place] [address] Name: MYRA TRUONG Address: home [address] [place] [address] Name: JOSH TRUONG Address: home [address] [place] [address]
--- OUTSIDE RECORDS SUMMARY | 2024-02-13 23:21 | XMS_ITS | Continuity of Care Document ---
Author Organization [facility] Address [address] [facility], 4t [address] [place] [address]- Care Team Providers Care Digital Forensics Examiner Name Role Phone Not on Staff, PCP Primary Care Physician Unavail able [place] [facility] [place] 04/18/23 [facility] [address] [facility], 4th [address] [place] [address]- Allergies, Adverse Reactions, Alerts No Known Medication [...] tablet, 0 Refills, Maintenance, 03/12/23 13:53:00 EDT, [id number], Partial fill upon patient [...] Care Nurse Name: Junie Beck RN Position: [facility] ED RN W/OE and Tasks Member Role: Primary Care Nurse Name: Not on Staff, PCP Position: [facility] Physician (General Medicine) Member Role: PCP Care Team Related Persons Name: DEE MOBLEY Address: [address] [address] Name: MYRA TRUONG Address: [address] [address] Name: JOSH TRUONG Address: [address] [address]
[2024-02-13] MEDS: Acetaminophen 325 MG TABLET 975 MG PO (23:42)
--- NOTE | 2024-02-13 23:44 | PC.NURSE ---
aware of pain level. pt medicated per aug. ua sent to lab.
[2024-02-14 00:11] LABS: Appearance Urine Clear; Color Urine Yellow; Glucose Urine UA Negative (Negative); Leukocyte Esterase Urine Negative (Negative); Nitrite Urine Negative (Negative); PH 5.5 (5.0-9.0); Specific Gravity - Urine >= 1.030 (1.005-1.025); Urine Blood Negative (Negative); Urine Ketones Negative (Negative); Urine Protein Negative (Neg-Trace)
[2024-02-14 00:17] LABS: UPreg QC Valid YES; Urine Pregnancy NEGATIVE (NEGATIVE)
[2024-02-14] MEDS: Ketorolac Tromethamine 60 MG/2 ML VIAL IM (03:10)
[2024-02-14 03:30] VITALS: BP 128/96; PULSE 77; RESP 18; TEMP 36.6; O2SAT 99
== END 2024-02-14 03:40 | disposition home or self-care (01) ==
PROVIDERS: Physician Assistant; Emergency Provider Emergency Medicine
DX: N83.202 Unspecified ovarian cyst, left side (principal); R10.32 Left lower quadrant pain
CPT/HCPCS: 36415; 74176; 80053; 81003; 81025; 83735; 85025; 96372; 99283; 99284; J1885

== ENCOUNTER 2025-01-11 14:13 | Emergency (ER) | payer OTHER, SELFPAY ==
--- OUTSIDE RECORDS SUMMARY | 2025-01-07 20:36 | XMS_ITS | Continuity of Care Document ---
Author Organization [facility] ter Address [address] [place] [id number]- Care Team Providers Care Heel Slugger Name Role Phone Brianna Moran MD Primary Care Physician [id number] Date(s): 01/07/25 - 01/07/[address] [address]- Encounter Diagnosis Abdominal pain(Final) - 01/07/25 Discharge Disposition: A-D/C Home Attending Physician: Miko Burns MD Admitting Physician: Miko Burns MD Referring Physician: Not on Staff, Referring MD Encounter Type: Disch ES Allergies, Adverse Reactions, Alerts Substance Criticality Severity Reaction Reaction Severity Status cephalexin dizziness Blackout Active Cats Active Medications amitriptyline 10 mg oral tablet 10 mg, 1, tablet, By Mouth, Daily at bedtime, # 30 tablet, Refills 1, Tot. Refills 1, Maintenance, 12/03/24 8:48:00 AM EDT, Route to Pharmacy Electronically, [id number], Partial fill upon patient request if the prescription is for a schedule II opioid drug., 153, cm, 11/26/24 8:11:00 EDT, Height, 80.3, kg, 11/07/24 8:26:00 EDT, Dry Weight Start Date: 12/03/24 Status: Ordered Quantity: 30.0 Unit: tablet Repeat number: 2 Apri 0.15 mg-0.03 mg oral tablet 1 tablet, By Mouth, Daily, # 90 tablet, 3 Refills, Maintenance, 11/07/24 3:30:00 PM EDT, Tablet, [facility], Partial fill upon patient request if the prescription is for a schedule II opioid drug., 1 tablet By Mouth Daily,x90 days, 153, cm, 11/07/24 14:56:00 EDT, Height, 80.3, kg, 11/07/24 8:26:00 EDT, Dry Weight Start Date: 11/07/24 Stop Date: 11/02/25 Status: Ordered Quantity: 90.0 Unit: tablet Repeat number: 4 AZO Urinary Pain Relief Max Strength 99.5 mg oral tablet 2 tablet = 199 mg, By Mouth, 3 times a day after meals, 0 Refills, Maintenance, 11/07/24 8:46:00 AM EDT, Partial fill upon patient request if the prescription is for a schedule II opioid drug. Start Date: 11/07/24 Status: Ordered Repeat number: 1 Dilaudid Inj 1 mg, Injection, IV Push Slowly, Once, STAT, 01/07/25 11:35:00 AM EDT, Stop date 01/07/25 11:45:39 AMEDT Start Date: 01/07/25 Stop Date: 01/07/25 Status: Completed Repeat number: 1 Dilaudid Inj 1 mg, Injection, IV Push Slowly, Once, STAT, 01/07/25 1:41:00 PM EDT, Stop date 01/07/25 1:42:20 PM EDT Start Date: 01/07/25 Stop Date: 01/07/25 Status: Completed Repeat number: 1 fluconazole 150 mg oral tablet 1 tablet = 150 mg, By Mouth, Once, epeat dose if still having symptoms in 72 hours, # 2 tablet, 0 Refills, Soft Stop, 01/06/25 2:40:00 PM EDT, Tablet, [facility], Partial fill upon patient request if the prescription is for a schedule II opioid drug., 153, cm, 12/29/24 7:14:00 EDT, Height, 78.5, kg, 01/06/25 11:26:00 EDT, Dry Weight Start Date: 01/06/25 Status: Ordered Quantity: 2.0 Unit: tablet Repeat number: 1 gabapentin 100 mg oral capsule 100 mg, 1, capsule, By Mouth, 2 times a day, # 20 capsule, Refills 0, Tot. Refills 0, Maintenance, 01/06/25 3:08:00 PM EDT, Route to Pharmacy Electronically, [facility], Partial fill upon patient request if the prescription is for a schedule II opioid drug., 153, cm, 12/29/24 7:14:00 EDT, Height, 78.5, kg, 01/06/25 11:26:00 EDT, Dry Weight Start Date: 01/06/25 Status: Ordered Quantity: 20.0 Unit: capsule Repeat number: 1 ibuprofen 800 mg oral tablet 800 mg, 1, tablet, By Mouth, Every 8 hours, # 40 tablet, Refills 0, Tot. Refills 0, Maintenance, 01/06/25 1:34:00 PM EDT, Route to Pharmacy Electronically, [facility], Partial fill upon patient request if the prescription is for a schedule II opioid drug., 153, cm, 12/29/24 7:14:00 EDT, Height, 78.5, kg, 01/06/25 11:26:00 EDT, Dry Weight Start Date: 01/06/25 Status: Ordered Quantity: 40.0 Unit: tablet Repeat number: 1 lidocaine 5% topical film 1 patch, Topically, Every 12 hours, PRN Pain , Mild, # 30 patch, 0 Refills, Acute 02/08/25 8:18:00 PM EDT, 01/07/25 8:16:00 PM EDT, Patch, [facility], Partial fill upon patient request if the prescription is for a schedule II opioid drug., 1 patch Topically Every 12 hours,PRN:Pain , Mild, 153, cm, 12/29/24 7:14:00 EDT, Height, 78.5, kg, 01/06/25 11:26:00 EDT, Dry Weight Start Date: 01/07/25 Stop Date: 02/08/25 Status: Ordered Quantity: 30.0 Unit: patch Repeat number: 1 MiraLax oral powder for reconstitution = 17 Gm, By Mouth, Daily, dissolve in 4 to 8 oz of beverage, # 510 Gm, 0 Refills, Maintenance, 01/06/25 1:35:00 PM EDT, REC Powder, [facility]174, Partial fill upon patient request if the prescription is for a schedule II opioid drug., 17 Gm By Mouth Daily,Instr:dissolve in 4 to 8 oz of beverage, 153, cm, 12/29/24 7:14:00 EDT, Height, 78.5, kg, 01/06/25 11:26:00 EDT, Dry Weight Start Date: 01/06/25 Status: Ordered Quantity: 510.0 Unit: g Repeat number: 1 ondansetron 4 mg oral tablet, disintegrating 1 tablet = 4 mg, By Mouth, Every 8 hours, PRN Nausea & Vomiting, # 10 tablet, 0 Refills, Acute 12/29/25 6:53:00 AM EDT, 12/29/24 6:53:00 AM EDT, Tablet, [facility], Partial fill upon patient request if the prescription is for a schedule II opioid drug., 153, cm, 12/28/24 21:34:00 EDT, Height, 74.5, kg, 12/28/24 21:34:00 EDT, Dry Weight Start Date: 12/29/24 Stop Date: 12/29/25 Status: Ordered Quantity: 10.0 Unit: tablet Repeat number: 1 ondansetron 8 mg oral tablet, disintegrating 1 tablet = 8 mg, By Mouth, 3 times a day, # 12 tablet, 0 Refills, Acute 02/08/25 8:18:00 PM EDT, 01/07/25 8:17:00 PM EDT, DIS Tablet, [facility], Partial fill upon patient request if the prescription is for a schedule II opioid drug., 153, cm, 12/29/24 7:14:00 EDT, Height, 78.5, kg, 01/06/25 11:26:00 EDT, Dry Weight Start Date: 01/07/25 Stop Date: 02/08/25 Status: Ordered Quantity: 12.0 Unit: tablet Repeat number: 1 oxyCODONE 5 mg oral tablet 5 mg, 1, tablet, By Mouth, Every 6 hours, PRN, # 10 tablet, Refills 0, Tot. Refills 0, Maintenance,as needed for pain, 01/06/25 1:34:00 PM EDT, Route to Pharmacy Electronically, [facility], Partial fill upon patient request if the prescription is for a schedule II opioid drug., 153, cm, 12/29/24 7:14:00 EDT, Height, 78.5, kg, 01/06/25 11:26:00 EDT, Dry Weight Start Date: 01/06/25 Status: Ordered Quantity: 10.0 Unit: tablet Repeat number: 1 simethicone 80 mg oral tablet, chewable 80 mg, 1, tablet, Chew, 4 times a day, PRN, # 36 tablet, Refills 0, Tot. Refills 0, Maintenance, asneeded for gas, 01/06/25 1:35:00 PM EDT, Route to Pharmacy Electronically, [facility], Partial fill upon patient request if the prescription is for a schedule II opioid drug., 153, cm, 12/29/24 7:14:00 EDT, Height, 78.5, kg, 01/06/25 11:26:00 EDT, Dry Weight Start Date: 01/06/25 Status: Ordered Quantity: 36.0 Unit: tablet Repeat number: 1 Tylenol 325 mg oral tablet 975 mg, 3, tablet, By Mouth, Every 8 hours, PRN, # 40 tablet, Refills 0, Tot. Refills 0, Maintenance, for pain, 01/06/25 1:35:00 PM EDT, Route to Pharmacy Electronically, [facility], Partial fill upon patient request if the prescription is for a schedule II opioid drug., 153, cm, :14:00 EDT, Height, 78.5, kg, 01/06/25 11:26:00 EDT, Dry Weight Start Date: 01/06/25 Status: Ordered Quantity: 40.0 Unit: tablet Repeat number: 1 Valtrex 500 mg oral tablet 500 mg, 1, tablet, By Mouth, 2 times a day, for 3 days, # 6 tablet, Refills 5, Tot. Refills 5, Acute 01/24/25 3:52:00 PM EDT, 01/06/25 3:52:00 PM EDT, Route to Pharmacy Electronically, [facility], Partial fill upon patient request if the prescription is for a schedule II opioid drug., 153, cm, 12/29/24 7:14:00 EDT, Height, 78.5, kg, 01/06/25 11:26:00 EDT, Dry Weight Start Date: 01/06/25 Stop Date: 01/24/25 Status: Ordered Quantity: 6.0 Unit: tablet Repeat number: 6 Problem List Condition Confirmation Course Effective Dates Status Health St atus Informant Asthma Confirmed Active Chronic constipation Confirmed Active Eczema 1 Confirmed Active Mixed incontinence Confirmed Active Low back pain Confirmed Active Obese class I Confirmed Active Sleep apnea Confirmed Active 1right nipple Results Radiology Reports * Exam Date Time Procedure Performing Provider Status 01/07/25 2:34 PM US Abdomen Ltd Auth (Veri fied) Notes: (US Abdomen Ltd) Reason For Exam: RUQ pain;Other: RESULT: US Abdomen Ltd US Abdomen Ltd Hx of Present Illness: Abd pain since having cyst removal yesterday; Reason: RUQ pain; Clinical Question(s): Cholecystitis COMPARISON: CT abdomen/pelvis 01/07/2025 FINDINGS: Slightly limited examination due to overlying bowel gas and limited mobility. Gallbladder: No gallstones. Normal wall thickness. No pericholecystic fluid. Negative Smith sign. Biliary Tree: No intrahepatic or extrahepatic bile duct dilation is identified. Common duct: 0.4 cm. IMPRESSION: No sonographic evidence of acute cholecystitis. I have personally reviewed the images and I agree with this report. WSN: [id number] Ordering Physician: Akash Guzman Dictated By: Natacha Brennan DO Dictated Date/Time: 01/07/25 2:48 pm Reviewed By: Curtis Avitia MD Signed By: Curtis Avitia MD Signed Date/Time: 01/07/25 2:53 pm Transcribed By: DEMETRICE Transcribed Date/Time: 01/07/25 2:44 pm * Exam Date Time Procedure Performing Provider Status 01/07/25 12:[address] Angio Chest Auth (Kriss ified) Notes: (CT Angio Chest) Reason For Exam: PE Suspected, r/o PE infiltrate;Other: RESULT: CT Angio Chest CT Angio Chest INDICATION: Hx of Present Illness: Abd pain since having cyst removal yesterday; Reason: Other:; PESuspected, r o PE infiltrate; Clinical Question(s): Pulmonary Embolism; Order Comment: TECHNIQUE: Spiral CTA of the chest was performed after rapid IV contrast administration without cardiac gating, triggered by an MOHAMUD on the main pulmonary artery. Images are formatted in multiple planes using 2-D multiplanar and 3-D maximum intensity projection. 100 cc of Isovue 300 was administered intravenously. Weight-based protocol using automatic tube modulation was used to optimize exposure parameters. CTDIvol Body: 10.58 mGy, DLP Body: 926 mGy*cm. COMPARISONS: None. ANGIOGRAPHIC FINDINGS: No pulmonary embolism to the segmental level. Normal caliber pulmonary arteries. No acute aortic abnormality seen on this study performed without cardiac gating. NON-ANGIOGRAPHIC FINDINGS: Natural Sciences Professor view findings, lines and tubes: None. Trachea and airways: Patent without evidence of tracheal or endobronchial lesion. Lungs and pleura: Mild basilar atelectasis. No consolidation or cavitation. Punctate right middle lobe granuloma. No effusion or pneumothorax. Mediastinum and cooper: No mass or hematoma. No mediastinal or hilar lymphadenopathy. No esophageal abnormality. Partially imaged thyroid is unremarkable. Heart: Heart is normal in size. No pericardial effusion. No coronary arterial calcifications. Chest wall soft tissues: No acute abnormality. Diaphragm: Intact. Upper abdomen: Please see separately reported CT of the abdomen and pelvis for findings below the diaphragm. Bones: No acute abnormality. IMPRESSION: No evidence of pulmonary embolism. Please see separately reported CT of the abdomen and pelvis for findings below the diaphragm. WSN: [id number] Ordering Physician: Akash Guzman Dictated By: Karen Villarreal MD Dictated Date/Time: 01/07/25 2:13 pm Reviewed By: Karen Villarreal MD Signed By: Karen Villarreal MD Signed Date/Time: 01/07/25 2:13 pm Transcribed By: DEMETRICE Transcribed Date/Time: 01/07/25 1:54 pm * Exam Date Time Procedure Performing Provider Status 01/07/25 12:[address] Abd/Pelvis W/ IV Contrast Only Auth (Verified) Notes: (CT Abd/Pelvis W/ IV Contrast Only) Reason For Exam: post lap for endometriosis right ab pain possible gallbladder inflammation, r/o bleed, cholecystitis;Pain RESULT: CT Abd/Pelvis W/ IV Contrast Only CT Abd/Pelvis W/ IV Contrast Only Hx of Present Illness: Abd pain since having cyst removal yesterday; Reason: Pain; post lap for endometriosis right ab pain possible gallbladder inflammation, r o bleed, cholecystitis; Clinical Question(s): Other: TECHNIQUE: Spiral CT through the abdomen and pelvis with IV contrast formatted in 3 planes. cc of was administered intravenously. This study was performed oral contrast. Weight-based protocol using automatic tube modulation was used to optimize exposure parameters. COMPARISON: 07/24/2024. FINDINGS: Natural Sciences Professor View Findings, Lines and Tubes: None. Visualized Chest: Mild scarring/atelectasis demonstrated within the visualized lung bases. No pleural effusion. The heart is normal in size. No pericardial effusion. Diaphragm: Normal. Liver: Normal. Gallbladder: No CT evidence of gallbladder pathology. Bile ducts: No biliary ductal dilation. Spleen: Normal. Pancreas: Normal. Adrenal glands: Normal. Kidneys and ureters: No hydronephrosis, stones, or suspicious masses. Bladder: Tiny focus of intraluminal gas, likely iatrogenic. Reproductive organs: There is a right adnexal cyst or structure measuring approximately 3.2 x 3.1 cm, which may represent an ovarian cyst. Stomach, small bowel, and large bowel: Normal. Appendix: Normal. Peritoneum and retroperitoneum: There is a small amount of pneumoperitoneum, which may be postsurgical. No omental or mesenteric lesions. Lymph nodes: No enlarged lymph nodes. Blood vessels: Normal. No aneurysm. No evidence of venous thrombosis. Abdominal and pelvic wall: Tiny foci of gas are seen at the level of the umbilicus, likely related to recent laparoscopic procedure. Bones: No acute abnormality. IMPRESSION: Small amount of pneumoperitoneum, which is likely postsurgical given provided history. Clinical correlation is recommended to exclude the possibility of perforated viscus. Correlation with laboratoryvalues and potential follow-up imaging can be obtained if necessary. There is a right adnexal cyst or structure measuring approximately 3.2 x 3.1 cm, which may represent an ovarian cyst. Follow-up pelvic ultrasound can be obtained for further evaluation if clinically indicated. Tiny focus of gas within the urinary bladder, likely related to recent Al catheter placement. No gallbladder pathology. No bowel obstruction. A normal caliber appendix is identified. WSN: [id number] Ordering Physician: Akash Guzman Dictated By: Angelina Lorenzo MD Dictated Date/Time: 01/07/25 1:20 pm Reviewed By: Maura FORD Arekelli Signed By: Angelina Lorenzo MD Signed Date/Time: 01/07/25 1:20 pm Transcribed By: DEMETRICE Transcribed Date/Time: 01/07/25 1:01 pm Social History Social History Type Response Smoking Status Never smoker entered on: 05/12/15 Sex Sex Representation Female (finding) EKG study * Event Display: ECG 12-Lead Authored Date: [id number] Please click on pdf link to open report * Event Display: ECG 12-Lead Authored Date: [id number] Ventricular Rate: 75 BPM Atrial Rate: 75 BPM P-R Interval: 142 ms QRS Duration: 84 ms Q-T Interval: 414 ms QTC Calculation(Bazett): 462 ms P Frank[place]: 54 degrees R [place]: 4 degrees T [place]: 11 degrees Normal sinus rhythm Normal ECG When compared with ECG of 28-Dec-2024 21:53, No significant change was found Confirmed by BIANCA PAUL MD ([id number]) on 01/07/2025 4:44:55 PM [place]: BIANCA PAUL MD * Event Display: EKG Authored Date: [id number] Note * Juan Kaba MD: PERFORM Event Display: Patient Education Leaflets Authored Date: [id number] Unknown Causes of Abdominal Pain (Adult) ?? [id number] Unknown Causes of Abdominal Pain (Adult) The exact cause of your belly (abdominal) [...] to watch for any new symptoms, problems,??or if your condition gets worse. Over the next few days, the abdominal [...] relieve pain. ??? Something warm on your belly, such as a heating pad, may help, but be careful not to [...] Don???t have??whole-grain foods, whole fruits and vegetables,meats, seeds, and nuts, fried or fatty foods, dairy, alcohol and spicy foods until your symptoms goaway. ?? Follow-up care Follow up with your healthcare provider, or as advised, if your pain does not begin to improve in the next 24 hours. ?? Call 911 Call?? 911 if any of these occur: ??? Trouble breathing ??? Confusion ??? Fainting or loss of consciousness ??? Rapid heart rate ??? Seizure ?? When to get medical advice Call your healthcare provider right away if any of these occur: ??? Pain gets worse or moves to theright lower abdomen ??? Vomiting or diarrhea that is new or gets worse ??? Swelling of the abdomen ??? Unable to pass stool for more than??3 days ??? Fever of 100.4??F (38??C) or higher, or as directed by your healthcare provider ??? Blood in vomit or bowel movements (dark red or black color) ??? Ye llow color of eyes and skin (jaundice) ??? Weakness, dizziness ??? Chest, arm, back, neck, or jaw pain ??? Can't keep down medicines, liquids, or water because of too much vomiting ??? If you have a vagina: unexpected vaginal bleeding or missed period ?? Last Reviewed Date: 2024 00:00:00 ?? [id number] [employer]. All rights reserved. This information is not intended as a substitute for professional medical care. Always follow your healthcare professional's instructions. ?? * Akash Guzman MD: PERFORM Event Display: Patient Education Leaflets Authored Date: [id number] Unknown Causes of Abdominal Pain (Adult) ?? [id number] Unknown Causes of Abdominal Pain (Adult) The exact cause of your belly (abdominal) [...] to watch for any new symptoms, problems,??or if your condition gets worse. Over the next few days, the abdominal [...] relieve pain. ??? Something warm on your belly, such as a heating pad, may help, but be careful not to [...] Don???t have??whole-grain foods, whole fruits and vegetables,meats, seeds, and nuts, fried or fatty foods, dairy, alcohol and spicy foods until your symptoms goaway. ?? Follow-up care Follow up with your healthcare provider, or as advised, if your pain does not begin to improve in the next 24 hours. ?? Call 911 Call?? 911 if any of these occur: ??? Trouble breathing ??? Confusion ??? Fainting or loss of consciousness ??? Rapid heart rate ??? Seizure ?? When to get medical advice Call your healthcare provider right away if any of these occur: ??? Pain gets worse or moves to theright lower abdomen ??? Vomiting or diarrhea that is new or gets worse ??? Swelling of the abdomen ??? Unable to pass stool for more than??3 days ??? Fever of 100.4??F (38??C) or higher, or as directed by your healthcare provider ??? Blood in vomit or bowel movements (dark red or black color) ??? Y ellow color of eyes and skin (jaundice) ??? Weakness, dizziness ??? Chest, arm, back, neck, or jaw pain ??? Can't keep down medicines, liquids, or water because of too much vomiting ??? If you have avagina: unexpected vaginal bleeding or missed period ?? Last Reviewed Date: 2024 00:00:00 ?? [id number] [employer]. All rights reserved. This information is not intended as a substitute for professional medical care. Always follow your healthcare professional's instructions. ?? Patient Care team information Care Team Personnel Name: Mary Pastor RN Position: S RN Member Role: Primary Care Nurse Name: Junie Beck RN Position: S RN Member Role: Primary Care Nurse Name: Brianna Moran MD Position: Reference Physician Member Role: PCP Address: [address] [place] [address] [address] [facility] [place], [place] [id number] [place] [address] Telecom: Care Team Related Persons Name: DEE MOBLEY Name: MYRA TRUONG Name: JOSH TRUONG Insurance Providers Guarantor name: CHRIS ALEXI Health Plan Information #: 1 Payer: [employer] Payer Identifier: JOHN Member Number: [id number] Group Number: [id number] Subscriber Identifier: [id number] Relationship to Subscriber: self Coverage Type: Medicaid (Managed Care) Coverage Verification Date: JOHN Telecom: NA Address: NA
--- NOTE | ~2025-01-11 | XR_ITS ---
CLINICAL HISTORY: posterior thigh pain 2 view left femur Comparison: None provided Findings: No fractures or dislocations. No knee effusion. No significant arthritic change. No radiopaque foreign body. IMPRESSION: 1. Normal left femur This document has been electronically signed by: Deneen Marshall MD on 01/11/2025 15:33:23
--- NOTE | ~2025-01-11 | US_ITS ---
CLINICAL HISTORY: left thigh pain Venous duplex ultrasound left lower extremity Comparison: None provided Findings: The visualized deep veins are fully compressible with normal Doppler color flow and spectral tracings. No popliteal cyst. IMPRESSION: 1. Negative for left lower extremity deep vein thrombosis. This document has been electronically signed by: Deneen Marshall MD on 01/11/2025 16:24:36
[2025-01-11 14:35] VITALS: BP 113/73; PULSE 85; RESP 16; TEMP 36.4; O2SAT 99; BMI 33.2
--- NOTE | 2025-01-11 14:39 | ED.GENADULT ---
HPI - General Adult General Chief complaint: Extremity Problem Stated complaint: pain in the Back of left leg Time Seen by Provider: 01/11/25 16:04 Source: patient Mode of arrival: wheelchair Limitations: no limitations History of Present Illness ED Provider: Dr. Angy Rodriguez HPI narrative: Patient comes to the emergency room complaining of left leg pain. Patient states it has been hurting since yesterday. Patient states that she has been more sedentary than usual, patient recently had an ovarian cyst/endometriosis surgery last week. Patient states that the posterior aspect of the left thigh hurts quite a bit. Denies any swelling. Patient states that prior to the surgery, patient had left-sided groin pain and had cellulitis. Patient took antibiotics and then during the surgery she was given more. Patient denies fever chills. Denies any erythema. Related Data Previous Rx's ?Medication ?Instructions ?Recorded naproxen 500 mg tablet (Naprosyn) 500 mg PO BID #20 tabs 02/14/24 cyclobenzaprine 10 mg tablet 10 mg PO TID PRN muscle spasm #14 01/11/25 tabs tramadol 50 mg tablet 50 mg PO BID PRN pain #7 tabs 01/11/25 Allergies Allergy/AdvReac Type Severity Reaction Status Date / Time cephalexin AdvReac Fainting Verified 01/11/25 14:40 Review of Systems Review of Systems: Constitutional : No Weight loss, No Fever, No Chills, No Night Sweats, No Fatigue, No Malaise ENT/Mouth : No Hearing loss, No Ear Pain, No Nasal Congestion, No Sinus Pain, No Hoarseness, No sore throat, No Rhinorrhea, No Swallowing Difficulty Eyes: No Eye Pain, No Swelling, No Redness, No Foreign Body, No Discharge, No Vision Changes Cardiovascular : No Chest Pain, No SOB, No Dyspnea on Exertion, No Orthopnea, No Edema, No Palpitations Respiratory : No Cough, No Sputum, No Wheezing, No Smoke Exposure, No Dyspnea Gastrointestinal : No Nausea, No Vomiting, No Diarrhea, No Constipation, No abdominal Pain, No Hematochezia, No Melena Genitourinary : no irregular bleeding, No Dysuria, No Urinary Frequency, No Hematuria, No Urinary Incontinence, No Urgency, No Flank Pain, No Urinary Flow Changes, No Hesitancy Musculoskeletal : Complaining of left posterior thigh pain Skin: Ecchymosis, healing surgical incision sites in the abdomen Neuro : No Weakness, No Numbness, No Paresthesias, No Loss of Consciousness, No Dizziness, No Headache Psych : No Anxiety/Panic, No Depression, No SI/HI/AH/VH, No Social Issues, Heme/Lymph: No Bruising, No Bleeding,No Lymphadenopathy Endocrine : No Polyuria, No Polydipsia, No Temperature Intolerance [facility] Social History Social History Smoked in Last 30 Days: No Use of substances other than those prescribed or required for medical reasons: No Substance Use Type: Marijuana Substance Use Frequency: Occasionally Advance Directives: No Advance Directives Information Provided: No Do you have a plan to hurt others: No Plan Patient : No Physical Exam ED Exam Exam: Appearance: Alert. Oriented X3. No acute distress. Eyes: Pupils equal, round and reactive to light. ENT: Pharynx normal. Neck: Normal inspection. Neck supple. No lymph nodes noted. No crepitus CVS: Normal heart rate and rhythm. Pulses normal. Normal S1 and S2 Respiratory: No respiratory distress. Breath sounds normal. No Wheezing. No rales Abdomen: Soft and nontender. No rigidity. No distention. Skin: Skin warm and dry. Normal skin color. Normal skin turgor. Extremities: No lower extremity edema. No Lacerations. No Rash. The thigh looks normal, no erythema, no swelling, patient reports pain to palpation on the posterior aspect of the left thigh. Neuro: Oriented X 3. No motor deficit. No sensory deficit. Moving all extremities. No slurred speech. CN 2 through 12 grossly intact Psych: calm, cooperative, normal affect Vital Signs: Vital Signs - 24 hr 01/11/25 14:35 01/11/25 17:08 01/11/25 17:12 Temperature 97.5 F 98.3 F 98.3 F Pulse Rate 85 60 60 Respiratory Rate 16 18 18 Blood Pressure 113/73 108/75 108/75 Pulse Oximetry 99 98 98 Oxygen Delivery Method Room Air Room Air Room Air BMI result Body Mass Index 33.2 Course Course Course Narrative: RME: 34 yold female presents to the ED For left posterior thigh pain without any trauma. Patient recent surgery this past Sunday for endometriosis. Positive for left posterior thigh tenderness without any obvious erythema ecchymosis or deformity. Due to recent surgery was sent for ultrasound to rule out DVT labs ordered Medications Administered Discontinued Medications Generic Name Dose Route Start Last Admin Trade Name Desi PRN Reason Stop Dose Admin Tramadol HCl 50 mg 01/11/25 16:12 01/11/25 16:36 Tramadol Hcl 50 Mg Tablet PO 01/11/25 16:13 50 mg ONCE ONE Administration Medical Decision Making Medical Decision Making [facility] Narrative: Patient is neck looks clear, no erythema, no swelling. Patient reports pain to palpation. Since patient has been more sedentary, we will obtain an ultrasound to rule out a DVT. Patient is currently not on any blood thinners. Ultrasound is negative for DVT. Patient's pain likely musculoskeletal. Differential Diagnosis Differential Diagnoses: The differential diagnosis associated with the presentation includes (DVT, musculoskeletal pain, cramping) Admission/Observation Consideration of admission/observation: Escalation of care including admission/observation considered (Given patient's recent surgical history and current symptoms, observation was considered) Lab Data MDM Lab Attestation statement: I reviewed the patient's lab results. 01/11/25 16:21 01/11/25 16:21 Labs: Lab Results 01/11/25 Range/Units 16:21 WBC 8.8 (4.8-10.8) X10*3/uL RBC 4.85 (4.20-5.50) X10*6/uL Hgb 13.8 (12.0-16.0) g/dl Hct 41.3 (37.0-47.0) % MCV 85.2 (80.0-98.0) fL MCH 28.5 (27.0-33.0) pg MCHC 33.4 (31.0-35.0) g/dl RDW 12.8 (11.0-16.0) % Plt Count 262 (160-400) X10*3/uL MPV 8.1 L (9.4-12.3) fL Immature Gran % (Auto) 0.2 (0.0-0.4) % Neut % (Auto) 61.8 (45-73) % Lymph % (Auto) 30.5 (20-40) % [place] % (Auto) 5.8 (2-11) % Eos % (Auto) 1.5 (0-4) % Baso % (Auto) 0.2 (0-2) % Lymph # (Auto) 2.7 (1.2-4.9) X10*3/uL [place] # (Auto) 0.5 (0.1-1.2) X10*3/uL Eos # (Auto) 0.1 (0.0-0.4) X10*3/uL Baso # (Auto) 0.0 (0.0-0.2) X10*3/uL Abs Immat Gran (auto) 0.02 (0.00-0.03) X10*3/uL Absolute Neuts (auto) 5.4 (2.0-8.3) x10*3/uL Absolute Nucleated RBC 0.000 (0.0-0.012) X10*3/uL Nucleated RBC % (auto) 0.0 (0.0-0.2) /100WBC PT 12.7 H (10.9-12.4) SEC INR 1.1 (0.9-1.1) APTT 32.5 (26.0-36.8) SEC Sodium 140 (135-145) mmol/L Potassium 4.7 (3.3-5.1) mmol/L Chloride 107 (96-108) mmol/L Carbon Dioxide 25 (22-29) mmol/L Anion Gap 13 (12-20) BUN 13 (9-16) mg/dL Creatinine 0.89 (0.5-1.4) mg/dL Estim Creat Clear Calc 80.2 Estimated GFR > 60 Random Glucose 90 (60-115) mg/dL Calcium 9.2 (8.4-10.2) mg/dL Total Bilirubin 0.6 (0.0-1.0) mg/dL AST 20 (5-31) U/L ALT 16 (0-31) U/L Alkaline Phosphatase 60 (39-117) U/L Total Creatine Kinase 49 (26-140) U/L Total Protein 7.4 (6.5-8.0) g/dL Albumin 4.4 (3.5-5.0) g/dL Independent Interpretation I performed an independent interpretation of an: Ultrasound Radiology Impression Discussion of test interpretation with radiology: I have reviewed the radiologist's reading. Radiologist Impression: The visualized deep veins are fully compressible with normal Doppler color flow and spectral tracings. No popliteal cyst. IMPRESSION: 1. Negative for left lower extremity deep vein thrombosis. Critical Care Time Critical Care Time Critical Care Time: Yes Total Critical Care Time: 35 Attestation: I have personally provided critical care time. Time includes review of lab data, radiology results, discussion with consultants, and monitoring for potential decompensation. Intervention performed as documented. Discharge Plan Discharge Clinical Impression: Left thigh pain Patient Disposition: Home, Self-Care Instructions: Leg Pain (ED) Additional Instructions: Please follow-up with your primary care physician tomorrow. If you have any worsening or new symptoms, please return to the emergency room or call 911 Prescriptions: New tramadol 50 mg tablet 50 mg PO BID PRN (Reason: pain) Qty: 7 0RF cyclobenzaprine 10 mg tablet 10 mg PO TID PRN (Reason: muscle spasm) Qty: 14 0RF No Action naproxen [Naprosyn] 500 mg tablet 500 mg PO BID Qty: 20 0RF Interventions: ED Discharge Assessment Last Done: 01/11/25 17:12 Discharge Date/Time: 01/11/25 17:12 Print Language: Swiss
[2025-01-11 16:25] LABS: Hematocrit 41.3 % (37.0-47.0); Hemoglobin 13.8 g/dl (12.0-16.0); Imm Gran Abs Auto 0.02 X10*3/uL (0.00-0.03); Imm Gran Pct Auto 0.2 % (0.0-0.4); Lymphocytes Absolute Auto 2.7 X10*3/uL (1.2-4.9); MANUAL DIFF FLAG NO; Mean Corpuscular HGB Conc 33.4 g/dl (31.0-35.0); Mean Corpuscular Hemoglobin 28.5 pg (27.0-33.0); Mean Corpuscular Volume 85.2 fL (80.0-98.0); NRBC Abs Auto 0.000 X10*3/uL (0.0-0.012); NRBC Pct Auto 0.0 /100WBC (0.0-0.2); Platelet Count 262 X10*3/uL (160-400); Red Blood Count 4.85 X10*6/uL (4.20-5.50); White Blood Count 8.8 X10*3/uL (4.8-10.8)
[2025-01-11 16:33] LABS: INTERNATIONAL NORM RATIO 1.1 (0.9-1.1); Prothrombin Time 12.7 SEC (10.9-12.4)
[2025-01-11 16:36] LABS: Partial Thromboplastin Time 32.5 SEC (26.0-36.8)
[2025-01-11 16:40] LABS: Alanine Aminotransferase 16 U/L (0-31); Albumin Level 4.4 g/dL (3.5-5.0); Alkaline Phosphatase 60 U/L (39-117); Anion Gap 13 (12-20); Aspartate Amino Transferase 20 U/L (5-31); Blood Urea Nitrogen 13 mg/dL (9-16); Calcium 9.2 mg/dL (8.4-10.2); Carbon Dioxide 25 mmol/L (22-29); Chloride 107 mmol/L (96-108); Creatinine Clr Calc Pharmacy 80.2; Estimated Glomerular Filt Rate > 60; Potassium 4.7 mmol/L (3.3-5.1); Sodium 140 mmol/L (135-145); Total Protein 7.4 g/dL (6.5-8.0)
[2025-01-11 17:08] VITALS: BP 108/75; PULSE 60; RESP 18; TEMP 36.8; O2SAT 98
[2025-01-11 17:12] VITALS: BP 108/75; PULSE 60; RESP 18; TEMP 36.8; O2SAT 98
== END 2025-01-11 17:12 | disposition home or self-care (01) ==
PROVIDERS: Physician Assistant; Emergency Provider Emergency Medicine; PCP Internal Medicine
DX: M79.605 Pain in left leg (principal); R60.0 Localized edema; Z79.899 Other long term (current) drug therapy
CPT/HCPCS: 36415; 73552; 80053; 82550; 85025; 85610; 85730; 93971; 99284

== ENCOUNTER → 2025-01-11 14:41 | Outpatient (BNV) | payer OTHER, SELFPAY | PROVIDERS: Visit Provider Radiology Diagnostic Radiology | DX: M79.652 Pain in left thigh (principal) | CPT/HCPCS: 73552; 93971 ==

== ENCOUNTER 2025-01-15 10:43 | Emergency (ER) | payer OTHER, SELFPAY ==
--- NOTE | 2025-01-15 10:58 | ED.GENADULT ---
HPI - General Adult General Chief complaint: Skin/Abscess/Foreign Body Stated complaint: Post-op infection? Time Seen by Provider: 01/15/25 13:12 Source: patient and old records reviewed Mode of arrival: ambulatory Limitations: no limitations History of Present Illness ED Provider: DEVAN LÓPEZ narrative: 34 yo female with PMH of endometriosis s/p laparascopic surgery on 01/06 at [facility] - since then she feels she still has pain and then some chills. She notes she just removed her steri strips and the sites kept her up all last night with itching and redness. She took a benadryl without significant relief. She was able to have BM yesterday. She has no n/v. She tried to call her surgeon but no call back. She does not she is still having pain post op. She filled 4 days worth of tramadol on 01/13 - she notes she was seen for thigh pain and told she had a negative DVT study complaint: rash Onset (ago): day(s) (2) Location: abdomen Radiation: non-radiation Severity: mild Quality: other (pruritic) Pain Consistency: intermittent Relieving factors: none Exacerbating factors: other Treatments prior to arrival: none Related Data Previous Rx's ?Medication ?Instructions ?Recorded naproxen 500 mg tablet (Naprosyn) 500 mg PO BID #20 tabs 02/14/24 cyclobenzaprine 10 mg tablet 10 mg PO TID PRN muscle spasm #14 01/11/25 tabs tramadol 50 mg tablet 50 mg PO BID PRN pain #7 tabs 01/11/25 cetirizine 10 mg tablet 10 mg PO DAILY PRN allergy 01/15/25 symptoms #30 tabs diphenhydramine HCl 2 % topical 1 appl topical BID PRN itching 01/15/25 gel (Benadryl) #103 mL Allergies Allergy/AdvReac Type Severity Reaction Status Date / Time cephalexin AdvReac Fainting Verified 01/15/25 11:01 Review of Systems Review of Systems: Constitutional : No Fever, No Chills ENT/Mouth : No sore throat, No Rhinorrhea Eyes: No Eye Pain, No Swelling, No Redness Cardiovascular : No Chest Pain, No SOB Respiratory : No Cough, No Sputum Gastrointestinal : No Nausea, No Vomiting, No Diarrhea, pos abdominal Pain Genitourinary : No Dysuria, No Hematuria Musculoskeletal : No joint pain, No Myalgias, No Joint Swelling Skin : No Skin Lesions, positive skin rash All other systems reviewed and are negative [facility] Past Medical History Attestation statement: The following information was validated with the patient. Source: old records reviewed Medical History (Updated 01/15/25 @ 13:23 by Sissy Funez DO) Endometriosis Social History Social History (Updated 01/15/25 @ 13:23 by Sissy Funez DO) Patient Tobacco Use Status: Tobacco use Unknown Smoked in Last 30 Days: No Use of substances other than those prescribed or required for medical reasons: No Substance Use Type: Marijuana Advance Directives: No Advance Directives Information Provided: Yes Do you have a plan to hurt others: No Plan Patient : No Physical Exam ED Vital Signs: Vital Signs - 24 hr 01/15/25 10:59 01/15/25 13:30 01/15/25 13:32 Temperature 97.6 F 98.1 F 98.1 F Pulse Rate 103 H 92 92 Respiratory Rate 17 17 17 Blood Pressure 115/88 118/72 118/72 Pulse Oximetry 99 99 Oxygen Delivery Method Room Air Room Air Room Air BMI result Body Mass Index 28.9 Appearance: Alert. Oriented X3. No acute distress. Eyes: Pupils equal, round and reactive to light. ENT: Pharynx normal. Neck: Normal inspection. Neck supple. CVS: Normal heart rate and rhythm. Pulses normal. Respiratory: No respiratory distress. Breath sounds normal. Abdomen: Soft and nontender. she has no pain to palpation her incision sites are closed there is no purulence or any drainage, I feel no fluctuance, they are not warm they are in the shape of steri strips. no signs of infection/abscess, umbilicus with slight bruise but no edema/drainage/redness Skin: Skin warm and dry. Normal skin color. Extremities: No lower extremity edema. Neuro: Oriented X 3. No motor deficit. No sensory deficit. CN2-12 intact Course Course Course Narrative: JACQUIE Collins 01/15/25 1059 This is a Rapid Medical Examination (RME) performed by Lisa Marie PA-C in triage. Full HPI, ROS, assessment and treatment plan per primary provider in the Main ED. Hx: 34 yo F here w/ concerns for surgical site infection. she is s/p laparoscopic endometriosis surgery on 7/22/25. reports redness/itching to both incision sites. no drainage. no fever/chills. attempted to call surgeon at [facility] and has not heard back. PE/vitals: 2 laparoscopic incision sites, one to LLQ and RLQ with surrounding erythema, no drainging or crusting. obese abd, soft, ND/NT. Plan: labs Medical Decision Making Medical Decision Making [facility] Narrative: 34 yo female with PMH of endometriosis s/p laparascopic surgery 01/06 at [facility] now notes she has pain at sites as well but on exam they are healed as well as the redness is from the steri strips. The patient has a benign abdominal exam. At this time I am not concerned for infection/abcess. She has no signs of acute abdomen - labs reassuring WBC reassuring. Will start on zyrtec and topical benadryl will avoid steroids as it is not blistering. Differential Diagnosis Differential Diagnoses: The differential diagnosis associated with the presentation includes contact dermatitis, normal pos operative healing Admission/Observation Consideration of admission/observation: Escalation of care including admission/observation considered no signs of infection and WBC reassuring Lab Data [facility] Lab Attestation statement: I reviewed the patient's lab results. 01/15/25 11:25 01/15/25 11:25 Labs: Lab Results 01/15/25 Range/Units 11:25 WBC 6.1 (4.8-10.8) X10*3/uL RBC 5.03 (4.20-5.50) X10*6/uL Hgb 14.3 (12.0-16.0) g/dl Hct 43.7 (37.0-47.0) % MCV 86.9 (80.0-98.0) fL MCH 28.4 (27.0-33.0) pg MCHC 32.7 (31.0-35.0) g/dl RDW 13.0 (11.0-16.0) % Plt Count 267 (160-400) X10*3/uL MPV 8.2 L (9.4-12.3) fL Immature Gran % (Auto) 0.2 (0.0-0.4) % Neut % (Auto) 53.0 (45-73) % Lymph % (Auto) 37.1 (20-40) % [place] % (Auto) 7.6 (2-11) % Eos % (Auto) 1.6 (0-4) % Baso % (Auto) 0.5 (0-2) % Lymph # (Auto) 2.3 (1.2-4.9) X10*3/uL [place] # (Auto) 0.5 (0.1-1.2) X10*3/uL Eos # (Auto) 0.1 (0.0-0.4) X10*3/uL Baso # (Auto) 0.0 (0.0-0.2) X10*3/uL Abs Immat Gran (auto) 0.01 (0.00-0.03) X10*3/uL Absolute Neuts (auto) 3.2 (2.0-8.3) x10*3/uL Absolute Nucleated RBC 0.000 (0.0-0.012) X10*3/uL Nucleated RBC % (auto) 0.0 (0.0-0.2) /100WBC Sodium 140 (135-145) mmol/L Potassium 4.8 (3.3-5.1) mmol/L Chloride 107 (96-108) mmol/L Carbon Dioxide 28 (22-29) mmol/L Anion Gap 10 L (12-20) BUN 15 (9-16) mg/dL Creatinine 1.03 (0.5-1.4) mg/dL Estim Creat Clear Calc 75.5 Estimated GFR > 60 Random Glucose 89 (60-115) mg/dL Calcium 9.6 (8.4-10.2) mg/dL Total Bilirubin 0.4 (0.0-1.0) mg/dL AST 20 (5-31) U/L ALT 20 (0-31) U/L Alkaline Phosphatase 68 (39-117) U/L Total Protein 7.6 (6.5-8.0) g/dL Albumin 4.5 (3.5-5.0) g/dL Independent Historian Clinical information obtained from an independent historian. History obtained from or confirmed by: Parent External Record Review External record reviewed: Outpatient record Prescription Management I considered prescription management with: Other Discharge Plan Discharge Clinical Impression: Contact dermatitis Patient Disposition: Home, Self-Care Instructions: Contact Dermatitis (ED) Additional Instructions: your vital signs and labs are reassuring today you do not have an elevated white blood cell count please follow up with your surgeon for any other wound changes at this time take over the counter zyrtec for itching use topical medications for itching as needed this could take a couple of weeks for reaction to go away return for fevers over 100.4, redness that spreads, or any other concerns Prescriptions: New cetirizine 10 mg tablet 10 mg PO DAILY PRN (Reason: allergy symptoms) Qty: 30 0RF Benadryl 2 % gel 1 appl topical BID PRN (Reason: itching) Qty: 103 0RF No Action naproxen [Naprosyn] 500 mg tablet 500 mg PO BID Qty: 20 0RF tramadol 50 mg tablet 50 mg PO BID PRN (Reason: pain) Qty: 7 0RF cyclobenzaprine 10 mg tablet 10 mg PO TID PRN (Reason: muscle spasm) Qty: 14 0RF Interventions: ED Discharge Assessment Last Done: 01/15/25 13:32 Discharge Date/Time: 01/15/25 13:33 Print Language: Mont[place]
[2025-01-15 10:59] VITALS: BP 115/88; PULSE 103; RESP 17; TEMP 36.4; BMI 28.9
[2025-01-15 11:32] LABS: MANUAL DIFF FLAG NO
[2025-01-15 11:33] LABS: Hematocrit 43.7 % (37.0-47.0); Hemoglobin 14.3 g/dl (12.0-16.0); Imm Gran Abs Auto 0.01 X10*3/uL (0.00-0.03); Imm Gran Pct Auto 0.2 % (0.0-0.4); Lymphocytes Absolute Auto 2.3 X10*3/uL (1.2-4.9); Mean Corpuscular HGB Conc 32.7 g/dl (31.0-35.0); Mean Corpuscular Hemoglobin 28.4 pg (27.0-33.0); Mean Corpuscular Volume 86.9 fL (80.0-98.0); NRBC Abs Auto 0.000 X10*3/uL (0.0-0.012); NRBC Pct Auto 0.0 /100WBC (0.0-0.2); Platelet Count 267 X10*3/uL (160-400); Red Blood Count 5.03 X10*6/uL (4.20-5.50); White Blood Count 6.1 X10*3/uL (4.8-10.8)
[2025-01-15 11:49] LABS: Alanine Aminotransferase 20 U/L (0-31); Albumin Level 4.5 g/dL (3.5-5.0); Alkaline Phosphatase 68 U/L (39-117); Anion Gap 10 (12-20); Aspartate Amino Transferase 20 U/L (5-31); Blood Urea Nitrogen 15 mg/dL (9-16); Calcium 9.6 mg/dL (8.4-10.2); Carbon Dioxide 28 mmol/L (22-29); Chloride 107 mmol/L (96-108); Creatinine Clr Calc Pharmacy 75.5; Estimated Glomerular Filt Rate > 60; Potassium 4.8 mmol/L (3.3-5.1); Sodium 140 mmol/L (135-145); Total Protein 7.6 g/dL (6.5-8.0)
[2025-01-15 13:30] VITALS: BP 118/72; PULSE 92; RESP 17; TEMP 36.7; O2SAT 99
--- NOTE | 2025-01-15 13:31 | PC.NURSE ---
Pt's laproscopic incision sites slightly reddened, but no drainage, swelling noted; pt reports itchiness ; afebrile; labs WNL
--- OUTSIDE RECORDS SUMMARY | 2025-01-15 13:31 | XMS_ITS | Clinical Summary ---
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 Active doxycycline (ADOXA) 100 mg tablet Take 1 tablet (100 mg total) by mouth 2 (two) times a day. Take with a full glass of water and do not lie down for at least 30 minutes after Active levonorgestrel- ethinyl estradiol (LYBREL) 90-20 mcg (28) per tablet Take 1 tablet by mouth 1 (one) time each day. Active ibuprofen (ADVIL,MOTRIN) 800 mg tablet Take 1 tablet (800 mg total) by mouth every 6 (six) hours if needed for mild pain. Active simethicone (MYLICON) 80 mg chewable tablet Chew 1 tablet (80 mg total) every 6 (six) hours if needed for flatulence. Active valACYclovir (VALTREX) 500 mg tablet Take by mouth 2 (two) times a day. Active dicyclomine (BENTYL) 10 mg capsuleIndicati ons:LLQ pain Take 1 capsule (10 mg total) by mouth 4 (four) times a day if needed (abdominal pain). 120 capsule 11 04/18/202 5 10/04/19 26 Active Additional Information Patient not taking.Reported on 10/28/2024 bisacodyL (DULCOLAX) 5 mg EC tablet Take 2 tablets by mouth right before beginning bowel prep. See instructions provided by the office 2 tablet 5 Active polyethylene glycol (Golytely) 236-22.74-6.74 -5.86 gram solution Take 4L by mouth once for one dose. May substitue any PEG. Starting at 6PM the night before your procedure drink 1 8oz glasses at your own pace until you complete half of the gallon. Finish 2nd half of the gallon 5 hours before your procedure. 4000 mL 5 Active Additional Information Patient not taking.Reported on 10/28/2024 Active Problems Problem Noted Date Diagnosed Date Sleep apnea 10/17/2024 Asthma 10/17/2024 Mixed incontinence 10/17/2024 Low back pain 10/17/2024 Eczema 10/17/2024 Overview (10/17/2024): right nipple Chronic constipation 10/17/2024 Class 1 obesity 10/17/2024 Attention deficit disorder 09/29/2024 Overview (09/29/2024): IMO update Dizziness and giddiness 09/29/2024 Migraine, unspecified, witho ut mention of intractable migraine without mention of status migrainosus 09/29/2024 Overview (09/29/2024): IMO update Obesity (BMI 30-39.9) 04/29/2012 Encounters Date Type Department Care Team Description 10/28/2024 11:20 AM EDT Office Visit Gastroenterology - [address] [place] [id number] Ilda Marcum PA Left sided abdominal pain (Primary Dx) 10/15/2024 Telephone Gastroenterology - [address] [place] [id number] Erik Nieves MD from Last 3 Months Immunizations Name Administration Dates Next Due DTP 12/16/1993,,07/02/1989,05/02,03/02/1989 [id number] (Pentacel) 2mo to less than 5yo 04/01/1990 HPV, Quadrivalent 09/08/2008,05/12/2008,03/09/20 08 Hepatitis B Pediatric (Enger ix B; Recombivax HB) to less than 20 yo 06/05/2001,03/01/2001,01/24/2001 Influenza trivalent, with pr eservative (Fluzone; Afluria) 6mo and older 04/25/2010 MMR, measles mumps and rubel la Live (Priorix; M-M-R II) 12mo and older 03/02/1995,04/01/1990 Meningococcal MCV4P 03/09/2008 OPV 12/16/1993, 1,05/02/1989,03/02 PPD Test 08/24/2010,07/07/2010 Td Tetanus diptheria (Tdvax) 7yo and older 11/04/1999 Tdap Tetanus diptheria acell ular pertussis (Boostrix; Adacel) 7yo and older 03/06/2006 Varicella live (Varivax) 12m o and older 10/04/1997 Surgical History Surgery Date Site/Laterality Comments TONSILLECTOMY 09/22 PROCEDURE: HISTORICAL TONSILLECTOMY; COMMENT: LEG SURGERY Left S/P INFECTION DIAG [facility] Medical History Medical History Date Comments Migraine, unspecified, witho ut mention of intractable migraine without mention of status migrainosus DX:Migraine, unspecified , without mention of intractable migraine without mention of status migrainosus Dizziness and giddiness DX:Dizzi ness and giddiness Attention deficit disorder w ithout mention of hyperactivity DX:Attention deficit disorde r without mention of hyperactivity Anxiety Asthma 10/17/2024 Family History Medical History Relation Name Comments Hypertension Father Pancreatic cancer Father Colon polyps Father's Sister Allergies Mother Colon cancer Neg Hx Relation Name Status Comments Father Alive 1947 Father's Sister Mother Alive 4Colitis Sister Alive 1/2 Social History Tobacco Use Types Packs/Day Years Used Date Smoking Tobacco: Former Cigarettes Q uit: 07/19/2009 Smokeless Tobacco: Former Tobacco Cessation:Counseling Given: Not Answered Alcohol Use Standard Drinks/Week Comments Not Currently 0 (1 standard drink = 0.6 oz pur e alcohol) Interpersonal Safety Answer Date Record ed Physical Abuse 10/09/2024 Verbal Abuse 10/09/2024 Comments No Sex and Gender Information Value Date Recorded Sex Assigned at Not on file Legal Sex Female 9:50 PM EST Gender Identity Not on file Sexual Orientation Not on file Obstetrics History Last Filed Vital Signs Vital Sign Reading Time Taken Comments Blood Pressure 103/73 10/09/2024 1:45 PM EDT Pulse 72 10/09/2024 1:45 PM EDT Temperature 36.4 C (97.6 F) 10/09/2024 1:25 PM EDT Respiratory Rate 19 10/09/2024 1:45 PM EDT Oxygen Saturation 100% 10/09/2024 1:45 PM EDT Inhaled Oxygen Concentration - - Weight 78.9 kg (174 lb) 10/28/2024 10:59 AM EDT Height 152.4 cm (5') 10/28/2024 10:59 AM EDT Body Mass Index 33.98 10/28/2024 10:59 AM EDT Plan of Treatment Health Maintenance Due Date Last Done Comments Pneumococcal Vaccine: Pediatrics (0 to 5 Years) and At-Risk Patients (6 to 49 Years) (1 of 2 - PCV) 12/16/2007 Cervical Cancer Screening: Pap Smear 2009 DTaP,Tdap,and Td Vaccines (8 - Td or Tdap) 03/06/2016 03/06/2006, 11/04/1999, 12/16/1993, Additional history exists COVID-19 Vaccine () 02/17/2024 Depression Screening 06/18/2024 Cholesterol Screening (Lipid Panel) 09/09/2024 HIV Screening 09/09/2024 Hepatitis C Screening 09/09/2024 Social Influencers of Health Screening 09/09/2024 Influenza Vaccine (#1) 2025 04/25/2010 HIB Vaccines Completed 04/01/1990, 04/01/1990 IPV Vaccines Completed 12/16/1993, 08/16, 04/01/1990, Additional history exists MMR Vaccines Completed 03/02/1995, 03/18, 1989 Hepatitis B Vaccines Completed 06/05/2001, 03/01/2001, 01/24/2001, Additional history exists Meningococcal ACWY Vaccine Aged Out 03/09/2008 N o longer eligible based on patient's age to complete this topic HPV Vaccines Completed 09/08/2008, 04/19, 03/09/2008 Varicella Vaccines Aged Out 05/01/2020, 10/04/1997 No longer eligible based on patient's age to complete this topic Hepatitis A Vaccines Aged Out No long er eligible based on patient's age to complete this topic Meningococcal B Vaccine Aged Out No l onger eligible based on patient's age to complete this topic RSV Immunization Patients Under 20 months Aged Out No longer eligible based on patient's age to complete this topic Insurance [facility] Care Teams Metal Container Maker Relationship Specialty Start Date End Date Yousif Combs MD [address] [facility] [address] [place]ORIO Chatman PCP - General Internal Medicine 09/08/24
[2025-01-15 13:32] VITALS: BP 118/72; PULSE 92; RESP 17; TEMP 36.7; O2SAT 99
== END 2025-01-15 13:33 | disposition home or self-care (01) ==
PROVIDERS: Physician Assistant Medical; Emergency Provider Emergency Medicine
DX: L25.9 Unspecified contact dermatitis, unspecified cause (principal)
CPT/HCPCS: 36415; 80053; 85025; 99283; 99284

== ENCOUNTER 2025-03-14 04:00 | Emergency (ER) | payer OTHER, SELFPAY ==
[2025-03-14 04:03] VITALS: BP 121/87; PULSE 79; RESP 18; TEMP 36.9; O2SAT 98; BMI 34.9
--- NOTE | 2025-03-14 04:31 | ED_ITS ---
HPI - Skin/Abscess/Foreign Bdy General Chief complaint: Skin/Abscess/Foreign Body Stated complaint: Left leg infection Time Seen by Provider: 03/14/25 04:14 Source: patient Mode of arrival: ambulatory Limitations: no limitations History of Present Illness ED Provider: Dr. Angy Rodriguez HPI narrative: Patient comes to the emergency room complaining of an itchy bruise on the inner thigh of the left leg. Patient states that the appearance of her leg is much better than a few days ago. Patient also reporting difficulty breathing, use her inhaler. Patient states that after recent air inhaler, she thought she was going to faint. Patient states that this happened every time that she uses Keflex. Patient denies taking any antibiotics recently, denies taking Keflex today. However, patient states that in her inhaled and make sure feel just as bad as the side-effects she gets from Keflex Related Data Previous Rx's ?Medication ?Instructions ?Recorded naproxen 500 mg tablet (Naprosyn) 500 mg PO BID #20 ta bs 02/14/24 cyclobenzaprine 10 mg tablet 10 mg PO TID PRN muscle s pasm #14 01/11/25 tabs tramadol 50 mg tablet 50 mg PO BID PRN pain #7 tab s 01/11/25 cetirizine 10 mg tablet 10 mg PO DAILY PRN allergy 0 01/15/25 symptoms #30 tabs diphenhydramine HCl 2 % topical 1 appl topical BID PRN itching 01/15/25 gel (Benadryl) #103 mL hydrocortisone 1 % topical cream 1 appl topical TID NM N rash #28.4 03/14/25 grams Allergies Allergy/AdvReac Type Severity Reaction Status Date / Time cephalexin AdvReac Fainting Verified 03/14/25 04:08 Review of Systems 2 Review of Systems: Constitutional : No Weight loss, No Fever, No Chills, No Night Sweats, No Fatigue, No Malaise ENT/Mouth : No Hearing loss, No Ear Pain, No Nasal Congestion, No Sinus Pain, No Hoarseness, No sore throat, No Rhinorrhea, No Swallowing Difficulty Eyes: No Eye Pain, No Swelling, No Redness, No Foreign Body, No Discharge, No Vision Changes Cardiovascular : No Chest Pain, No SOB, No Dyspnea on Exertion, No Orthopnea, No Edema, No Palpitations Respiratory : No Cough, No Sputum, No Wheezing, No Smoke Exposure, No Dyspnea Gastrointestinal : No Nausea, No Vomiting, No Diarrhea, No Constipation, No abdominal Pain, No Hematochezia, No Melena Genitourinary : no irregular bleeding, No Dysuria, No Urinary Frequency, No Hematuria, No Urinary Incontinence, No Urgency, No Flank Pain, No Urinary Flow Changes, No Hesitancy Musculoskeletal : No joint pain, No Myalgias, No Joint Swelling Skin complaining of an ecchymosis in the left medial leg the turn into a rash on it is itchy Neuro : No Weakness, No Numbness, No Paresthesias, No Loss of Consciousness, No Dizziness, No Headache Psych : No Anxiety/Panic, No Depression, No SI/HI/AH/VH, No Social Issues, Heme/Lymph: No Bruising, No Bleeding,No Lymphadenopathy Endocrine : No Polyuria, No Polydipsia, No Temperature Intolerance PMFSH Past Medical History Medical History Endometriosis Social History Social History (Updated 01/15/25 @ 13:23 by Sissy Funez DO) Patient Tobacco Use Status: Tobacco use Unknown Smoked in Last 30 Days: No Use of substances other than those prescribed or required for medical reasons: Yes Substance Use Type: Marijuana Substance Use Frequency: Daily Advance Directives: No Advance Directives Information Provided: No Patient : No Physical Exam 2 Exam: Exam: Appearance: Alert. Oriented X3. No acute distress. Eyes: Pupils equal, round and reactive to light. ENT: Pharynx normal. Neck: Normal inspection. Neck supple. No lymph nodes noted. No crepitus CVS: Normal heart rate and rhythm. Pulses normal. Normal S1 and S2 Respiratory: No respiratory distress. Breath sounds normal. No Wheezing. No rales Abdomen: Soft and nontender. No rigidity. No distention. Skin: Skin warm and dry. Normal skin color. Normal skin turgor. There is a 1 cm x 1 cm area of dermatitis. I do not see any ecchymosis Extremities: No lower extremity edema. No Lacerations. No Rash Neuro: Oriented X 3. No motor deficit. No sensory deficit. Moving all extremities. No slurred speech. CN 2 through 12 grossly intact Psych: calm, cooperative, normal affect Vital Signs: Vital Signs: Last Vital Signs Temp 98.4 F 03/14/25 04:03 Pulse 79 03/14/25 04:03 Resp 18 03/14/25 04:03 BP 121/87 03/14/25 04:03 Pulse Ox 98 03/14/25 04:03 O2 Del Method Room Air 03/14/25 04:03 BMI result Body Mass Index 34.9 Medical Decision Making Medical Decision Making MDM Narrative: My interpretation of EKG: Normal sinus rhythm, heart rate 16, no ST segment depression or elevation, nonspecific T-wave inversion in lead 3, QTC 444 Patient's vitals stable: Blood pressure 121/87, pulse 79, respirations 18, temperature 98.4 degrees, oxygen saturation 98% on room air I discussed with the patient that she likely has a spot of dermatitis, for which she has been seen before. I recommended topic hydrocortisone. Patient's orthostatic vitals and EKG were done However, patient has started hyperventilating, becoming very anxious, patient states that blood work would make her feel much better. I agreed with the patient to do a CBC Patient's Wells criteria for DVT is negative 2 My interpretation of CVC: No acute abnormality I reviewed patient's records, patient has been seen previously for the same complaint, dermatitis in the left leg. Differential Diagnosis Differential Diagnoses: The differential diagnosis associated with the presentation includes (Dermatitis, ecchymosis, anxiety about health) Lab Data 03/14/25 04:50 Labs: Lab Results 03/14/25 Range/Units 04:50 WBC 6.9 (4.8-10.8) X10*3/uL RBC 4.66 (4.20-5.50) X10*6/uL Hgb 13.6 (12.0-16.0) g/dl Hct 40.1 (37.0-47.0) % MCV 86.1 (80.0-98.0) fL MCH 29.2 (27.0-33.0) pg MCHC 33.9 (31.0-35.0) g/dl RDW 13.2 (11.0-16.0) % Plt Count 243 (160-400) X10*3/uL MPV 8.0 L (9.4-12.3) fL Immature Gran % (Auto) 0.3 (0.0-0.4) % Neut % (Auto) 60.1 (45-73) % Lymph % (Auto) 31.1 (20-40) % Shannon % (Auto) 6.2 (2-11) % Eos % (Auto) 1.9 (0-4) % Baso % (Auto) 0.4 (0-2) % Lymph # (Auto) 2.2 (1.2-4.9) X10*3/uL Shannon # (Auto) 0.4 (0.1-1.2) X10*3/uL Eos # (Auto) 0.1 (0.0-0.4) X10*3/uL Baso # (Auto) 0.0 (0.0-0.2) X10*3/uL Abs Immat Gran (auto) 0.02 (0.00-0.03) X10*3/uL Absolute Neuts (auto) 4.2 (2.0-8.3) x10*3/uL Absolute Nucleated RBC 0.000 (0.0-0.012) X10*3/uL Nucleated RBC % (auto) 0.0 (0.0-0.2) /100WBC Beta HCG, Quant < 2 mIU/mL Scores Wells DVT Alternative Dx as likely as or more likely than DVT: -2 Score: -2 2-tier Risk: unlikely risk (5%) 3-tier Risk: low risk (3%) Discharge Plan Discharge Clinical Impression: Dermatitis Patient Disposition: Home, Self-Care Instructions: Dermatitis (ED) Additional Instructions: Please follow-up with your primary care physician tomorrow. If you have any worsening or new symptoms, please return to the emergency room or call 911 Prescriptions: New hydrocortisone 1 % cream 1 appl topical TID PRN (Reason: rash) Qty: 28.4 0RF No Action naproxen [Naprosyn] 500 mg tablet 500 mg PO BID Qty: 20 0RF tramadol 50 mg tablet 50 mg PO BID PRN (Reason: pain) Qty: 7 0RF cyclobenzaprine 10 mg tablet 10 mg PO TID PRN (Reason: muscle spasm) Qty: 14 0RF cetirizine 10 mg tablet 10 mg PO DAILY PRN (Reason: allergy symptoms) Qty: 30 0RF Benadryl 2 % gel 1 appl topical BID PRN (Reason: itching) Qty: 103 0RF Print Language: Jordanian
--- NOTE | 2025-03-14 04:32 | ECG_ITS ---
Test Reason : DIZZINESS Blood Pressure : */* mmHG Vent. Rate : 60 BPM Atrial Rate : 60 BPM P-R Int : 156 ms QRS Dur : 80 ms QT Int : 444 ms P-R-T Axes : 31 1 -4 degrees QTcB Int : 444 ms Normal sinus rhythm Normal ECG No previous ECGs available Referred By: Angy Rodriguez Electronically Signed By: Ethan Askew
[2025-03-14 04:54] LABS: MANUAL DIFF FLAG NO
[2025-03-14 04:55] LABS: Hematocrit 40.1 % (37.0-47.0); Hemoglobin 13.6 g/dl (12.0-16.0); Imm Gran Abs Auto 0.02 X10*3/uL (0.00-0.03); Imm Gran Pct Auto 0.3 % (0.0-0.4); Lymphocytes Absolute Auto 2.2 X10*3/uL (1.2-4.9); Mean Corpuscular HGB Conc 33.9 g/dl (31.0-35.0); Mean Corpuscular Hemoglobin 29.2 pg (27.0-33.0); Mean Corpuscular Volume 86.1 fL (80.0-98.0); NRBC Abs Auto 0.000 X10*3/uL (0.0-0.012); NRBC Pct Auto 0.0 /100WBC (0.0-0.2); Platelet Count 243 X10*3/uL (160-400); Red Blood Count 4.66 X10*6/uL (4.20-5.50); White Blood Count 6.9 X10*3/uL (4.8-10.8)
--- OUTSIDE RECORDS SUMMARY | 2025-03-14 05:05 | XMS_ITS | Clinical Summary ---
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 Role Phone Yousif Combs MD Primary Care Provider [phone] Allergies Active Allergy Reactions Criticality Noted Date Comments Cat Dander 04/28/2011 Cinnamon Hives 01/28/2010 Latex Hives 10/09/2024 [place] Itching 01/28/2010 Itchy throat Medications acetaminophen (TYLENOL) [...] (09/29/2024): IMO update Obesity (BMI 30-39.9) 04/29/2012 Immunizations Name Administration Dates Next Due DTP 12/16/1993, 1,07/02/1989,05/02,03/02/1989 [id number] (Pentacel) 2mo to less than 5yo 04/01/1990 [...] COMMENT: LEG SURGERY Left S/P INFECTION DIAG G Medical History Medical History Date Comments Migraine, [...] Hx Relation Name Status Comments Father Alive 194 Father's Sister Mother Alive 4Colitis Sister Alive /2 Social History Tobacco Use Types Packs/Day Years [...] 03/06/2016 03/06/2006, 11/04/1999, 12/16/1993, Additional history exists Depression Screening 06/18/2024 Cholesterol Screening (Lipid Panel) 09/09/2024 HIV Screening 09/09/2024 Hepatitis C Screening 09/09/2024 Social Influencers of Health Screening 09/09/2024 COVID-19 Vaccine () 02/16/2025 Influenza Vaccine (#1) 2025 04/25/2010 HIB Vaccines [...] patient's age to complete [place] [id number] [facility] [employer] Care Teams Field 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
[2025-03-14 05:29] VITALS: BP 121/87; PULSE 79; RESP 18; TEMP 36.9; O2SAT 98
== END 2025-03-14 05:30 | disposition home or self-care (01) ==
PROVIDERS: Emergency Provider Emergency Medicine; PCP Nurse Practitioner Family
DX: L30.9 Dermatitis, unspecified (principal)
CPT/HCPCS: 36415; 84702; 85025; 93005; 99283; 99284

== ENCOUNTER → 2025-03-14 04:32 | Outpatient (BNV) | payer OTHER, SELFPAY | PROVIDERS: Emergency Provider Emergency Medicine; PCP Nurse Practitioner Family; Visit Provider Internal Medicine Cardiovascular Disease | DX: R42 Dizziness and giddiness (principal) | CPT/HCPCS: 93010 ==